=== PATIENT | male | born 1945 | race Caucasian/White ===

== ENCOUNTER → 2016-04-16 | Outpatient (CLI) | payer MEDICARE ==
[2016-04-16 11:21] LABS: Appearance,Urine Clear (Clear); Basophils # (A) 0.1 k/uL (0-0.2); Basophils % (A) 1 %; Bilirubin,Urine Negative (Negative); CH 31.4; Eosinophils # (A) 0.3 k/uL (0-0.7); Eosinophils % (A) 4 %; Glucose,Urine (UA) Negative (Negative); HCT 43.4 % (39.0-53.0); HDW 2.75; HGB 14.6 gm/dL (13.0-17.5); Ketones,Urine Negative (Negative); Leukocyte Esterase,Urine Trace (Negative); Luc % (Auto) 1; Lymphocytes % (A) 25 %; MCH 31.3 pg (25.0-35.0); MCHC 33.7 g/dL (31.0-37.0); MCV 92.8 fL (80.0-100.0); Mean Platelet Volume 6.7; Monocytes # (A) 0.4 k/uL (0-1.0); Monocytes % (A) 5 %; Mucus,Urine Rare /hpf; Neutrophils % (A) 64 %; Nitrite,Urine Negative (Negative); Particle Count 1796; Protein,Urine Negative (Negative); RBC 4.68 m/uL (4.30-5.90); RDW 13.3 % (11.5-15.5); Specific Gravity,Urine 1.017 (1.001-1.035); Squamous Epithelial Cell,Urine <1 /hpf (0-4); UA Billing (MACRO vs. MICRO) MICRO; Urobilinogen,Urine <2.0 mg/dL (<2.0); WBC 7.9 k/uL (3.8-10.6); WBC (Perox) 8.01; WBC,Urine 1 /hpf (0-5)
[2016-04-16 11:25] LABS: INR 1.1 (<1.1); Partial Thromboplastin Time 25.2 sec (22.0-30.0); Prothrombin Time 10.9 sec (9.0-12.0)
[2016-04-16 11:43] LABS: Anion Gap 14 mmol/L; Blood Urea Nitrogen 13 mg/dL (9-20); Calcium 9.3 mg/dL (8.4-10.2); Carbon Dioxide 26 mmol/L (22-30); Chloride 103 mmol/L (98-107); Glucose 116 mg/dL (74-99); Non-African American GFR(MDRD) >60 (>60 ml/min/1.73 sqM); Potassium 4.3 mmol/L (3.5-5.1); Sodium 143 mmol/L (137-145)
== END | disposition home or self-care (01) ==
LOC: LABPAT 10:32
PROVIDERS: ATTEND Internal Medicine
DX: Z01.812 Encounter for preprocedural laboratory examination (principal)
CPT/HCPCS: 80048; 81001; 85025; 85610; 85730

== ENCOUNTER 2016-05-06 05:51 | Inpatient (IN) | payer MEDICARE ==
[2016-04-26 08:33] VITALS: BMI 30.4
--- NOTE | 2016-05-05 14:58 | HP ---
DATE OF ADMISSION: 05/06/2016 Juancarlos Conrad is a 71-year-old patient seen with symptomatic left knee osteoarthritis. After having treatment options discussed, he elected to proceed with left total knee arthroplasty. Consent was obtained. Medical clearance was provided to Dr. Luis Layne, cardiac clearance was provided by Dr. Suarez. PAST MEDICAL HISTORY: Cardiovascular disease, lgt-[id number] diabetes, hypertension, benign prostatic hypertrophy. PAST SURGICAL HISTORY: Right total knee arthroplasty, lumbar spine surgery. DAILY MEDICATIONS: 1. Metformin. 2. Prilosec. 3. Flomax. 4. Lisinopril. ALLERGIES: PENICILLIN. SOCIAL HISTORY: Patient denies tobacco use. Physical evaluation of the left knee: Range of motion is -6/7 to 115 degrees, tenderness along the medial joint line. There is crepitus along the medial and patellofemoral compartments with range of motion. There is discomfort/pain with patellofemoral compression. Ligaments are stable. Hip rotation is without pain. Distal neurovascular exam is intact. Left knee radiographs reveal severe medial and moderate to severe patellofemoral compartment osteoarthritis. IMPRESSION: Left knee osteoarthritis. PLAN: Left total knee arthroplasty.
[~2016-05-06 05:51] MED LIST: ACETAMINOPHEN TAB 500 MG TAB PO ONE; CLINDAMYCIN 900 MG in DEXTROSE 5% IN WATER 50 ML IVPB ONE; DEXAMETHASONE SOD PHOSPHATE 10 MG/ML 1 ML VIAL IV ONE; LACTATED RINGERS 1,000 ML IV SCH; LIDOCAINE 1% 20 ML VIAL (10MG/ML) FOR IV START INTRADERMA PRN; MELOXICAM 7.5 MG TAB PO ONE; MIDAZOLAM 2 MG/2 ML VIAL IV PRN; ONDANSETRON 4 MG/2 ML VIAL IVP ONE; SCOPOLAMINE 1.5MG/72HR PATCH TRANSDERM ONE; TRANEXAMIC ACID 1,000 MG in SODIUM CHLORIDE 0.9% 100 ML IVPB ONE
[2016-05-06 06:57] LABS: Glucose,Whole Blood 133 mg/dL (75-99)
[2016-05-06] MEDS ORDERED: ROPIVACAINE 246.25 MG, EPINEPHrine 0.5 MG, KETOROLAC 30 MG, cloNIDine HCL/PF 80 MCG, WA... MISCELLANE ONE ×5 (07:31)
[2016-05-06] MEDS ORDERED: MIDAZOLAM 2 MG/2 ML VIAL ONE (07:35)
[2016-05-06] MEDS ORDERED: LIDOCAINE 1% INJ 10MG/ML (20 ML MDV) ONE (07:35)
[2016-05-06] MEDS ORDERED: PHENYLEPHRINE-0.9% NACL SYG 1 MG/10 ML SYRINGE ONE (07:35)
[2016-05-06] MEDS ORDERED: SODIUM CHLORIDE 0.9% 100 ML BAG ONE (07:35)
[2016-05-06] MEDS ORDERED: GLYCOPYRROLATE 0.2 MG/ML 2 ML VIAL ONE (07:35)
[2016-05-06] MEDS ORDERED: ROCURONIUM BROMIDE 10 MG/ML 10 ML VIAL IV ONE (07:35)
[2016-05-06] MEDS ORDERED: ePHEDrine 50 MG/ML 1 ML AMP ONE (07:35)
[2016-05-06] MEDS ORDERED: SUCCINYLCHOLINE CHLORIDE 100 MG/5 ML SYR IV ONE (07:35)
[2016-05-06] MEDS ORDERED: PROPOFOL 10 MG/ML 20 ML VIAL IV ONE (07:35)
[2016-05-06] MEDS ORDERED: NEOSTIGMINE 1 MG/ML 10 ML VIAL ONE (07:35)
[2016-05-06] MEDS ORDERED: fentaNYL (PF) 50 MCG/ML 2 ML AMP ONE (07:35)
[2016-05-06] MEDS ORDERED: TRANEXAMIC ACID 1,000 MG/10 ML VIAL ONE (07:35)
[2016-05-06] MEDS ORDERED: CLINDAMYCIN 1,800 MG in SODIUM CHLORIDE 0.9% IRRIGATIO 3,000 ML IRRIGATION ONE (08:07)
[2016-05-06] MEDS ORDERED: LACTATED RINGERS 1,000 ML IV ONE (08:17)
[2016-05-06] MEDS ORDERED: HYDROcodone/APAP 7.5-325MG 1 EACH TAB PO PRN ×2 (09:19)
[2016-05-06] MEDS ORDERED: NALOXONE 0.4 MG/ML 1 ML VIAL IV PRN (09:19)
[2016-05-06] MEDS ORDERED: HYDROmorphone 1 MG/ML 1 ML SYRINGE IVP PRN ×3 (09:19)
[2016-05-06] MEDS ORDERED: ONDANSETRON 4 MG/2 ML VIAL IVP PRN (09:19)
[2016-05-06] MEDS ORDERED: hydrOXYzine PAMOATE 25 MG CAP PO PRN (09:19)
--- NOTE | 2016-05-06 09:19 | P.OP ---
Date of Procedure: 05/06/16 Preoperative Diagnosis: Left knee osteoarthritis Postoperative Diagnosis: Left knee osteoarthritis Procedure(s) Performed: Left total knee arthroplasty Implants: 1. Jason persona cemented cruciate retaining left size 7 femur 2. Jason persona cemented left size E tibia 3. Jason persona 10 mm medial congruent polyethylene tibial insert 4. Jason persona 35 mm all polyethylene cemented patella Anesthesia: GETA, regional (Adductor canal block), local Surgeon: Huseyin Aguilar Whip Sawyer #1: Khoa Perales Estimated Blood Loss (ml): 100 Pathology: other (Bone) Condition: stable Disposition: PACU Indications for Procedure: 71-year-old patient seen with symptomatic left knee osteoarthritis. After having treatment options discussed, he elected to proceed with left total knee arthroplasty. Operative Findings: see description of procedure Description of Procedure: Patient was taken to the operative suite after having an adductor canal block performed by the department of anesthesia. Patient underwent a general anesthetic by the department of anesthesia. Patient was given preoperative IV intake antibiotics and TXA. A well-padded tourniquet was placed about the left lower extremity. The lower extremity was then prepped and draped in the normal sterile orthopedic fashion. A standard anterior incision was made sharply through skin. Dissection was taken down through the subcutaneous soft tissues down to the extensor mechanism. A medial arthrotomy was performed, patella was everted and knee was flexed. There was advanced osteoarthritis noted. A proximal tibial cutting guide was positioned. Proximal tibial cut was made. A distal intramedullary femoral cutting guide was positioned, distal femoral cut made. We placed the appropriate sizing guide and selected the appropriate size. A distal 4-in-1 femoral cutting block was positioned, distal femoral cuts were made. We now placed a trial femoral component into position, along with an appropriate size tibial tray and insert. We now took the knee through range of motion and had full extension good flexion and good overall soft tissue balance noted. The patella was everted and a flush cut made with patellar quad tendon. We templated the patella, appropriate drill holes were made. An appropriate trial patella was positioned, knee was taken through full range of motion with the patella tracking very nicely. The trial patella was removed. Drill holes were made through the femoral component. All trial components were removed after marking off the appropriate rotation of the tibia. Retractors were now positioned along the proximal tibia. An appropriate keel punch was made with the appropriate size tibial guide. At this point appropriate size implants were chosen and opened. The tourniquet was insufflated to 350. The joint was irrigated copiously with pulse lavage mechanical irrigation. The deep soft tissues were infiltrated local analgesic. We mixed antibiotic methylmethacrylate. Once the methyl methacrylate was ready, the tibial component was cemented into place removing any excess methylmethacrylate. The femoral component was cemented into place removing the removing any excess methylmethacrylate. We then inserted the appropriate size polyethylene tibial insert. We made sure that it was locked into position. We took the knee into full extension, and then back in a flexion making sure we had removed any excess methylmethacrylate. The patellar component was then cemented down and secured with clamp. Excess methylmethacrylate removed. We kept the knee in full extension, patellar clamp in position until methylmethacrylate had hardened. Once it had hardened the patellar clamp was removed. The knee was taken through full range of motion. The patella tracked nicely. There was good soft tissue balancing. The tourniquet was now released. Additional hemostasis was achieved via electrocautery. A second gram of TXA was given. The superficial soft tissues were infiltrated local analgesic. The extensor mechanism was repaired with Vicryl. We checked the repair with range of motion and it was stable. The subcutaneous soft tissues were repaired with Vicryl in layers. The skin was approximated with pernio/ Dermabond. Sterile dressings were applied followed by loose web roll and Deangelo bandage. The patient was transferred to a bed, and taken to recovery in stable and satisfactory condition. Khoa PRINCE assisted with the procedure.
[2016-05-06] MEDS ORDERED: ROPIVACAINE 1,100 MG, SODIUM CHLORIDE 0.9% 330 ML MISCELLANE PRN ×2 (09:22)
[2016-05-06] MEDS: HYDROmorphone 1 MG/ML 1 ML SYRINGE IVP PRN ×2 (09:51→10:03)
[2016-05-06 10:03] LABS: Glucose,Whole Blood 175 mg/dL (75-99)
--- NOTE | 2016-05-06 10:12 | XR ---
EXAMINATION TYPE: XR knee limited LT DATE OF EXAM: 05/06/2016 10:03 AM COMPARISON: NONE HISTORY: Post op FINDINGS: There is a prosthetic knee in near anatomic alignment. There is soft tissue edema and emphysema. IMPRESSION: 1. Postoperative change. Appears in near-anatomic alignment
[2016-05-06 11:45] LABS: Glucose,Whole Blood 177 mg/dL (75-99)
[2016-05-06] MEDS: traMADol 50 MG TAB PO SCH ×3 (13:10→20:45)
[2016-05-06] MEDS ORDERED: LORazepam 1 MG TAB PO PRN (13:23)
[2016-05-06] MEDS: CLINDAMYCIN 900 MG in DEXTROSE 5% IN WATER 50 ML IVPB SCH ×4 (15:01→20:40)
--- NOTE | 2016-05-06 15:50 | P.ONQ ---
Anesthesiology Proc Note - PNB - Peripheral Nerve Block Performed Left Adductor Canal Infusion Time Out Performed: Yes Procedure Start Time: :16 Procedure Stop Time: :25 Indication: Acute Post-Operative Pain, Requested by physician Sedation Type: Sedate with meaningful contact maintained Preparation: Sterile Dressing Position: Supine Needle Types: On-Q Needle Size: 50mm (2") Needle Gauge: 21 Technique: Ultrasound Injectate: 0.5% Ropivacaine (see comment for volume) (25cc) Blood Aspirated: No Pain Paresthesia on Injection Noted: No Resistance on Injection: Normal Events: Uneventful and Well Tolerated
[2016-05-06 17:26] LABS: Glucose,Whole Blood 200 mg/dL (75-99)
[2016-05-06] MEDS: metFORMIN 500 MG TAB PO SCH (18:28)
[2016-05-06] MEDS: LACTATED RINGERS 1,000 ML IV SCH ×2 (19:08→20:49)
--- NOTE | 2016-05-06 19:50 | CONS ---
DATE OF CONSULTATION: This is a 71-year-old white male who has a long-standing history of degenerative arthritis of the knee joints. He had a left total knee arthroplasty by Dr. Aguilar today and apparently patient tolerated the surgery well. I have been asked to see the patient for postoperative medical management. Patient is known to have hypertensive cardiovascular disease, diabetes mellitus, hyperlipidemia and benign prostatic hypertrophy. Patient has had recent lumbar spinal surgery and apparently he tolerated the surgery well and he is doing well with regards to the lower back. Patient also had a right total knee arthroplasty in the past. He is known to have diabetes mellitus and hypertensive cardiovascular disease. His current medications include: 1. Metformin. 2. Prilosec. 3. Flomax. 4. Lisinopril. 5. Cardizem. He does not smoke and he does not drink alcohol. He has NO KNOWN DRUG ALLERGIES. FAMILY HISTORY: History of heart disease and diabetes. REVIEW OF SYSTEMS: Patient denies any headache. Appetite has been good, bowels regular. He has no chest pain. He has no cough. He has no abdominal pain. He has no polyuria or dysuria. He has no neurological symptoms. Physical examination reveals a 71-year-old white male, well nourished and well developed. He is alert and oriented. He is in no acute distress. Pain seems to be under control. There is no jaundice. There is no generalized lymphadenopathy. There are no petechiae or bruises. Pulse 72 per minute, regular. Blood pressure 144/70. Examination of the ENT is negative. Neck is supple. There is no jugular venous distention. There is no goiter. There is no carotid bruit. Heart is in sinus rhythm. Lungs are clear to auscultation and percussion. Abdomen is soft and nontender. There is no mass palpable. Examination of the lower extremities shows no pitting edema. He is status post left total knee arthroplasty. IMPRESSION: 1. Degenerative arthritis of the left knee, status post left total knee arthroplasty. 2. Hypertensive cardiovascular disease. 3. Diabetes mellitus. 4. Hyperlipidemia. 5. History of low back pain, status post lumbar laminectomy and spinal fusion. 6. Past history of total right knee arthroplasty. PLAN: Patient will be placed back on his previous home medications. Will monitor his hemoglobin because he has a history of anemia following the previous surgery, and he has been on iron tablets. He has already been placed back on iron tablets now. His diabetes will be controlled with NovoLog sliding scale. Patient's vital signs are stable. There are no acute cardiorespiratory problems. Prognosis guarded. The prognosis and therapeutic plans were discussed in detail with the patient. Thank you for asking me to see this patient in consultation.
[2016-05-06] MEDS: INSULIN LISPRO (humaLOG) 300 UNIT/3 ML VIAL SQ SCH ×2 (19:57→20:52)
[2016-05-06] MEDS: ENOXAPARIN 30 MG/0.3 ML SYRINGE SQ SCH (20:40)
[2016-05-06] MEDS: SOTALOL 80 MG TAB PO SCH (20:41)
[2016-05-06] MEDS: LISINOPRIL 10 MG TAB PO SCH (20:41)
[2016-05-06] MEDS: CYCLOBENZAPRINE 10 MG TAB PO SCH (20:42)
[2016-05-06] MEDS: SENNOSIDES-DOCUSATE SODIUM 1 EACH TAB PO SCH (20:45)
[2016-05-06 20:52] LABS: Glucose,Whole Blood 155 mg/dL (75-99)
[2016-05-07] MEDS: LACTATED RINGERS 1,000 ML IV SCH ×2 (02:36→16:58)
[2016-05-07] MEDS ORDERED: PANTOPRAZOLE 40 MG TABLET PO SCH (07:30)
[2016-05-07 08:03] LABS: Basophils % (A) 0 %; CH 31.9; CHCM 34.9; Eosinophils % (A) 0 %; HCT 32.3 % (39.0-53.0); HDW 2.73; Luc # (Auto) 0.07; Luc % (Auto) 1; Lymphocytes # (A) 1.1 k/uL (1.0-4.8); Lymphocytes % (A) 10 %; MCHC 33.8 g/dL (31.0-37.0); Monocytes # (A) 0.8 k/uL (0-1.0); Monocytes % (A) 8 %; Neutrophils % (A) 82 %; RBC 3.52 m/uL (4.30-5.90); RDW 13.5 % (11.5-15.5); WBC (Perox) 11.81
[2016-05-07 08:06] LABS: HGB 10.9 gm/dL (13.0-17.5)
[2016-05-07 08:10] LABS: Glucose,Whole Blood 124 mg/dL (75-99)
[2016-05-07] MEDS: INSULIN LISPRO (humaLOG) 300 UNIT/3 ML VIAL SQ SCH ×4 (08:24→23:15)
[2016-05-07] MEDS: metFORMIN 500 MG TAB PO SCH ×2 (08:28→20:12)
[2016-05-07] MEDS: DILTIAZEM CD 120 MG CAP.ER.24H PO SCH (08:30)
[2016-05-07] MEDS: ENOXAPARIN 30 MG/0.3 ML SYRINGE SQ SCH ×2 (08:30→20:14)
[2016-05-07] MEDS: FAMOTIDINE 20 MG TAB PO SCH (08:31)
[2016-05-07] MEDS: MELOXICAM 7.5 MG TAB PO SCH (08:31)
[2016-05-07] MEDS: SOTALOL 80 MG TAB PO SCH ×2 (08:32→20:14)
[2016-05-07] MEDS: TAMSULOSIN 0.4 MG CAP.ER.24H PO SCH (08:33)
[2016-05-07] MEDS: traMADol 50 MG TAB PO SCH ×5 (08:33→22:58)
--- NOTE | 2016-05-07 10:37 | P.PN ---
Progress Note - Text 05/07 615am 71-year-old male status post total knee replacement with Dr. Aguilar, patient seen this morning to evaluate pain control. VAS of 0, and the solution running at 8 mL an hour. No motor deficits noted
[2016-05-07 10:51] LABS: Hemoglobin A1C 5.5 % (4.2-6.1)
[2016-05-07 12:02] LABS: Glucose,Whole Blood 134 mg/dL (75-99)
--- NOTE | 2016-05-07 12:24 | P.PN ---
Subjective Principal diagnosis: Status post left total knee arthroplasty Patient is seen today resting his hospital chair, his is present at bedside. Patient has ambulated minimally with therapy today. Patient did become a little unsteady when ambulating back from the bathroom. He notes some increasing pain in the left knee when ambulating. He denies any chest pain, lightheadedness, shortness of breath. Objective - Vital Signs Vital signs: Vital Signs Temp 97.0 F L 05/07/16 07:00 Pulse 83 05/07/16 07:00 Resp 16 05/07/16 07:00 BP 187/89 05/07/16 07:00 Pulse Ox 94 L 05/07/16 07:00 Intake & Output 05/06/16 05/07/16 05/07/16 18:59 06:59 18:59 Intake Total 1987 200 Output Total 350 1200 150 Balance 1637 -1200 50 Weight 90.718 kg Intake: IV 1807 Lactated Ringers 1,000 ml 400 @ 100 mls/hr IV .Q10H [facility] Rx#:[id number] Oral 180 200 Output: Urine 250 1200 150 Uretheral (Raines) 1200 Estimated Blood Loss 100 Other: Voiding Method Indwelling Catheter Indwelling Catheter - Exam Left lower extremity: Incision is clean, dry, and intact. Minimal ecchymosis present on the medial and lateral aspects of the incision. Calf is soft, no tenderness with palpation. Plantar flexion, dorsiflexion, EHL, FHL are intact. Sensory exam light touch throughout the extremity is intact. Dorsal pedis pulses 2+. - Labs CBC & Chem 7: 05/07/16 07:32 Labs: Abnormal Lab Results - Last 24 Hours (Table) 05/06/16 05/06/16 05/07/16 Range/Units 17:11 20:51 07:32 WBC 11.0 H (3.8-10.6) k/uL RBC 3.52 L (4.30-5.90) m/uL Hgb 10.9 L D (13.0-17.5) gm/dL Hct 32.3 L (39.0-53.0) % Neutrophils # 9.0 H (1.3-7.7) k/uL POC Glucose (mg/dL) 200 H 155 H (75-99) mg/dL 01/24/17 01/24/17 Range/Units 08:04 11:58 WBC (3.8-10.6) k/uL RBC (4.30-5.90) m/uL Hgb (13.0-17.5) gm/dL Hct (39.0-53.0) % Neutrophils # (1.3-7.7) k/uL POC Glucose (mg/dL) 124 H 134 H (75-99) mg/dL Assessment and Plan Plan: Assessment: 1. Postop day #1 status post left total knee arthroplasty Plan: 1. Pain control, continue use of oral medication 2. Continue therapy/CPM 3. Daily dressing changes/ice and elevate 4. Encourage incentive spirometer 5. GI and DVT prophylaxis, continue Pepcid and Lovenox 6. Medical recommendations 7. Discharge planning: Patient will likely be discharged home Time with Patient: Less than 30
[2016-05-07] MEDS: MULTIVITAMINS, THERA 1 EACH TAB PO SCH (13:00)
[2016-05-07] MEDS: FERROUS SULFATE 325 MG TAB PO SCH (13:00)
[2016-05-07 17:20] LABS: Glucose,Whole Blood 141 mg/dL (75-99)
--- NOTE | 2016-05-07 18:06 | PN ---
DATE OF SERVICE: 05/07/2016 This 71-year-old white male who has long-standing history of degenerative arthritis of the left knee and he had a left total knee arthroplasty on 05/06/2016 and he was seen by me in consultation for postoperative medical management. Patient has had a right total knee arthroplasty in the past and he has had no problems postoperatively at that time. This time the patient's vital signs are stable and his pain is adequately controlled. His diabetes is being controlled with NovoLog sliding scale. His blood pressure also under control and his hemoglobin is 10.9 and he has been started on ferrous sulfate. Overall, patient is recovering without any significant complications. He is tolerating the physical therapy and increased activities well. Heart is in sinus rhythm. Lungs are clear. There are no acute cardiorespiratory problems. Will continue current medications.
[2016-05-07] MEDS: CYCLOBENZAPRINE 10 MG TAB PO SCH (20:13)
[2016-05-07] MEDS: LISINOPRIL 10 MG TAB PO SCH (20:14)
[2016-05-07] MEDS: SENNOSIDES-DOCUSATE SODIUM 1 EACH TAB PO SCH (20:14)
[2016-05-07 20:30] LABS: Glucose,Whole Blood 165 mg/dL (75-99)
[2016-05-08] MEDS: LACTATED RINGERS 1,000 ML IV SCH ×3 (02:44→21:30)
[2016-05-08 07:12] LABS: Glucose,Whole Blood 140 mg/dL (75-99)
[2016-05-08] MEDS: INSULIN LISPRO (humaLOG) 300 UNIT/3 ML VIAL SQ SCH ×4 (07:47→21:21)
[2016-05-08] MEDS: PRILOSEC 20 MG PO SCH (07:47)
[2016-05-08] MEDS: ENOXAPARIN 30 MG/0.3 ML SYRINGE SQ SCH ×2 (07:47→21:28)
[2016-05-08] MEDS: SOTALOL 80 MG TAB PO SCH ×2 (07:48→21:27)
[2016-05-08] MEDS: MULTIVITAMINS, THERA 1 EACH TAB PO SCH (07:49)
[2016-05-08] MEDS: metFORMIN 500 MG TAB PO SCH ×2 (07:49→17:47)
[2016-05-08] MEDS: MELOXICAM 7.5 MG TAB PO SCH (07:49)
[2016-05-08] MEDS: DILTIAZEM CD 120 MG CAP.ER.24H PO SCH (07:50)
[2016-05-08] MEDS: FAMOTIDINE 20 MG TAB PO SCH (07:50)
[2016-05-08] MEDS: TAMSULOSIN 0.4 MG CAP.ER.24H PO SCH (07:50)
--- NOTE | 2016-05-08 09:08 | P.PN ---
Progress Note - Text The patient is status post left adductor canal catheter placement. The catheter was placed for postoperative pain control, status post total left arthroplasty. Postoperative day #2. Ropivacaine 0.2% is infusing at 12 mLs per hour. The patient has no complaints of left lower extremity numbness or weakness. Patient's VAS score is[2-3-10, anterior medial at the knee. Assessment: Patient's adductor canal catheter is in place and working appropriately. Plan: continue infusion and adjust it as needed.
[2016-05-08] MEDS: traMADol 50 MG TAB PO SCH ×4 (10:24→21:26)
--- NOTE | 2016-05-08 11:35 | US ---
EXAMINATION TYPE: US venous doppler duplex LE LT DATE OF EXAM: 05/08/2016 11:18 AM COMPARISON: NONE CLINICAL HISTORY: swelling and pain. Pain s/p left total knee SIDE PERFORMED: Left VESSELS IMAGED: External Iliac Vein (EIV) Common Femoral Vein Deep Femoral Vein Greater Saphenous Vein * Femoral Vein Popliteal Vein Small Saphenous Vein * Proximal Calf Veins (* superficial vessels) Left Leg: Negative for DVT/ Probable Asencio's Cyst left pop fossa= 5.7 x 2.2 x 2..4 cm
[2016-05-08 11:48] LABS: Glucose,Whole Blood 149 mg/dL (75-99)
--- NOTE | 2016-05-08 12:43 | P.PN ---
Subjective Principal diagnosis: Status post left total knee arthroplasty Patient is seen today resting his hospital chair, his is present at bedside. Patient states that he still has some difficulty with ambulation, he' s having difficulty getting speed on room. He also notes some increasing pain in the knee. He denies any chest pain, lightheadedness, shortness of breath. Objective - Vital Signs Vital signs: Vital Signs Temp 98.2 F 05/08/16 07:00 Pulse 85 05/08/16 07:00 Resp 16 05/08/16 07:00 BP 183/87 05/08/16 07:00 Pulse Ox 94 L 05/08/16 07:00 Intake & Output 05/07/16 05/08/16 05/08/16 18:59 06:59 18:59 Intake Total 200 250 Output Total 675 300 Balance -475 -50 Intake: Oral 200 250 Output: Urine 675 300 Other: Voiding Method Urinal # Voids 150 4 - Exam Left lower extremity: Incision is clean, dry, and intact. Minimal ecchymosis present on the medial and lateral aspects of the incision. Calf is soft, no tenderness with palpation. Plantar flexion, dorsiflexion, EHL, FHL are intact. Sensory exam light touch throughout the extremity is intact. Dorsal pedis pulses 2+. - Labs CBC & Chem 7: 05/07/16 07:32 Labs: Abnormal Lab Results - Last 24 Hours (Table) 05/07/16 05/07/16 05/08/16 Range/Units 16:47 20:28 07:06 POC Glucose (mg/dL) 141 H 165 H 140 H (75-99) mg/dL 05/08/16 Range/Units 11:45 POC Glucose (mg/dL) 149 H (75-99) mg/dL Assessment and Plan Plan: Assessment: 1. Postop day #2 status post left total knee arthroplasty Plan: 1. Pain control, continue use of oral medication 2. Continue therapy/CPM 3. Daily dressing changes/ice and elevate 4. Encourage incentive spirometer 5. GI and DVT prophylaxis, continue Pepcid and Lovenox 6. Medical recommendations 7. Discharge planning: Considering discharge to rehab pending patient's activity level tomorrow, hopefully will go discharged home Time with Patient: Less than 30
--- NOTE | 2016-05-08 12:46 | P.DS ---
Providers Date of admission: 05/06/16 05:51 Expected date of discharge: 05/09/16 Attending physician: Huseyin Aguilar Consults: 05/06/16 09:19 Consult Physician Routine Consulting Provider: Luis Layne Reason/Comments: Medical management Do you want consulting provider notified?: Yes Primary care physician: Luis Layne [place] Hospital Course: Date of admission: 05/06/2016 Date of discharge: 05/09/2016 Admission diagnosis: Status post post left total knee arthroplasty Discharge diagnosis: Same Attending physician: Dr. Fierro Surgical procedures: Left total knee arthroplasty Brief history: Patient is a 71-year-old male with a history of progressive primary left knee osteoarthritis. At this point patient has failed conservative treatment measures and has opted to proceed with a elective left total knee arthroplasty. Hospital course: Details of patient's surgery can be found in operative report. Patient tolerated the procedure well and was subsequently transported to orthopedic floor. Patient's orthopeidc and medical care was provided daily. Patient had daily laboratory tests performed for evaluation of overall blood counts. Patient had daily physical therapy to include strengthening range of motion as well as education with walker ambulation. Patient had daily CPM usage as part of their physical therapy program. Patient was treated with Lovenox and Coumadin for their postoperative DVT prophylaxis during their inpatient stay. Patient was noted to have a relatively uneventful postoperative course. Patient reported satisfactory pain control with oral pain medications by postoperative day 0. Patient showed satisfactory progress with physical therapy. Patient moved steadily through the program and had no difficulty meeting the goals by postoperative day 3. Given patient's otherwise satisfactory course and having met physical therapy goals, plan is to discharge patient home on postoperative day 3. Discharge condition/disposition: Patient will be discharged home in stable condition. Discharge medications: Instructions are given on resumption of patient's normal daily medications per primary care recommendation, in addition patient will be prescribed [place] 7.5 mg/325 mg, tramadol 50 mg, Colace 100 mg, aspirin 325 mg. Discharge instructions: 1. Wound care and infection precautions, keep incision dry and covered while showering, no lotions, creams, moisturizers. No soaking, tubs, pools, hottubs. Do not scrub over the incision. 2. Weight-bear as tolerated with walker / cane until follow-up. 3. Ice and elevate when necessary. Do not exceed 20 minutes per hour with ice pack. 4. Utilize compression sleeve until seen at first follow up appointment. 5. Visiting nursing care. 6. Home physical therapy including home CPM. 7. Pain meds and anticoagulants per prescription. 8. Pain medication has potential to cause constipation. Increase oral fluid and fiber intake. Contact primary care provider if you have not had a bowel movement within 48 hours after discharge 9. No anti-inflammatory medication until discussed at first post operative visit, this including Motrin, Aleve, Mobic, Diclofenac. 10. Follow up in office at 2 weeks postop with Wily Perales PA-C 11. Follow up with your primary care doctor 7-10 days after discharge. 12. Contact [facility] with any questions, . Procedures: Left total knee arthroplasty Patient Condition at Discharge: Good Plan - Discharge Summary New Discharge Prescriptions: Aspirin 325 mg PO BID #60 tab Docusate [Colace] 100 mg PO DAILY #20 capsule HYDROcodone/APAP 7.5-325MG [[place] 7.5] 1 - 2 each PO Q6HR PRN #40 tab PRN Reason: Pain traMADol HCl [Ultram] 50 mg PO Q6H PRN #40 tab PRN Reason: Pain Discharge Medication List Acetaminophen Tab [Tylenol Tab] 1,000 mg PO TID 01/13/15 [History] Omeprazole [PriLOSEC] 20 mg PO [id number] 01/13/15 [History] metFORMIN HCL [Glucophage] 500 mg PO BID 01/13/15 [History] Cartia Er 120 mg PO DAILY 04/26/16 [History] Cyclobenzaprine [Flexeril] 10 mg PO HS 04/26/16 [History] Ferrous Sulfate [Feosol] 325 mg PO DAILY 04/26/16 [History] LORazepam [Ativan] 1 mg PO DIRECTED PRN 04/26/16 [History] Lisinopril [Zestril] 10 mg PO HS 04/26/16 [History] Sotalol [Betapace] 40 mg PO BID 04/26/16 [History] Tamsulosin [Flomax] 0.4 mg PO DAILY 04/26/16 [History] Aspirin 325 mg PO BID #60 tab 05/09/16 [Rx] Docusate [Colace] 100 mg PO DAILY #20 capsule 01/26/17 [Rx] HYDROcodone/APAP 7.5-325MG [[place] 7.5] 1 - 2 each PO Q6HR PRN #40 tab 05/09/16 [ Rx] traMADol HCl [Ultram] 50 mg PO Q6H PRN #40 tab 05/09/16 [Rx] Follow up Appointment(s)/Referral(s): Khoa Perales, PAC [PHYSICIAN [employer]] - 05/22/16 2:10 pm Activity/Diet/Wound Care/Special Instructions: Home Care - [facility] - [phone] Walker - has at home [facility] - [facility] - [phone] Orthopedic Discharge Instructions: 1. Wound care and infection precautions, keep incision dry and covered while showering, no lotions, creams, moisturizers. No soaking, pools, hot tubs. Do not scrub over incision. 2. Weight-bear as tolerated with walker / cane until follow-up. 3. Ice and elevate when necessary. Do not exceed 20 minutes per hour with ice pack. 4. Utilize compression sleeve until seen at first follow up appointment. 5. Visiting nursing care. 6. Home physical therapy including home CPM. 7. Pain meds and anticoagulants per prescription. 8. Pain medication has potential to cause constipation. Increase oral fluid and fiber intake. Contact primary care provider if you have not had a bowel movement within 48 hours after discharge. 9. No anti-inflammatory medication until discussed at first post operative visit, this including Motrin, Aleve, Mobic, Diclofenac. 10. Follow up in office at 2 weeks postop with Wily Perales PA-C 11. Follow up with your primary care doctor 7-10 days after discharge. 12. Contact [facility] with any questions, . Discharge Disposition: HOME WITH HOME HEALTH SERVICES
[2016-05-08 16:54] LABS: Glucose,Whole Blood 121 mg/dL (75-99)
--- NOTE | 2016-05-08 17:46 | PN ---
DATE OF SERVICE: 05/08/2016 This is a 71-year-old white male who has a long-standing history of degenerative arthritis of the knees. He already had right total knee arthroplasty a few years ago. Patient had a left total knee arthroplasty on 05/06/2016. I was asked to see the patient in consultation for postoperative medical management. Patient is known to have diabetes mellitus and hypertensive cardiovascular disease. Patient has been placed back on his previous medications. He is also on NovoLog sliding scale for control of his diabetes. Patient has been recovering well from his surgery. His vital signs are stable. His hemoglobin is 10.9. Patient is feeling better. He denies any chest pain or shortness of breath. His vital signs are stable. Apparently patient is going to be discharged by Dr. Aguilar tomorrow. Patient was advised to continue his previous home medications when he is discharged. He denies any chest pain or shortness of breath. He has no acute cardiorespiratory problems.
[2016-05-08] MEDS: FERROUS SULFATE 325 MG TAB PO SCH (17:47)
[2016-05-08 20:37] LABS: Glucose,Whole Blood 136 mg/dL (75-99)
[2016-05-08] MEDS: SENNOSIDES-DOCUSATE SODIUM 1 EACH TAB PO SCH (21:27)
[2016-05-08] MEDS: CYCLOBENZAPRINE 10 MG TAB PO SCH (21:28)
[2016-05-08] MEDS: LISINOPRIL 10 MG TAB PO SCH (21:28)
[2016-05-09] MEDS: PRILOSEC 20 MG PO SCH (06:12)
[2016-05-09 06:19] VITALS: TEMP 97.2
[2016-05-09 07:48] LABS: Glucose,Whole Blood 143 mg/dL (75-99)
[2016-05-09] MEDS: TAMSULOSIN 0.4 MG CAP.ER.24H PO SCH (08:07)
[2016-05-09] MEDS: MULTIVITAMINS, THERA 1 EACH TAB PO SCH (08:07)
[2016-05-09] MEDS: MELOXICAM 7.5 MG TAB PO SCH (08:07)
[2016-05-09] MEDS: FERROUS SULFATE 325 MG TAB PO SCH (08:07)
[2016-05-09] MEDS: traMADol 50 MG TAB PO SCH ×2 (08:08→13:07)
[2016-05-09] MEDS: INSULIN LISPRO (humaLOG) 300 UNIT/3 ML VIAL SQ SCH ×2 (08:08→13:08)
[2016-05-09] MEDS: LACTATED RINGERS 1,000 ML IV SCH (08:09)
[2016-05-09 08:10] LABS: Basophils % (A) 1 %; CH 31.9; CHCM 34.7; Eosinophils # (A) 0.2 k/uL (0-0.7); Eosinophils % (A) 3 %; HCT 30.2 % (39.0-53.0); HDW 2.85; HGB 10.3 gm/dL (13.0-17.5); Luc # (Auto) 0.07; Luc % (Auto) 1; Lymphocytes # (A) 1.4 k/uL (1.0-4.8); Lymphocytes % (A) 20 %; MCH 31.6 pg (25.0-35.0); MCHC 34.1 g/dL (31.0-37.0); MCV 92.6 fL (80.0-100.0); Mean Platelet Volume 8.7; Monocytes # (A) 0.7 k/uL (0-1.0); Monocytes % (A) 10 %; Neutrophils # (A) 4.8 k/uL (1.3-7.7); Neutrophils % (A) 67 %; RBC 3.27 m/uL (4.30-5.90); RDW 13.6 % (11.5-15.5); WBC 7.3 k/uL (3.8-10.6)
[2016-05-09] MEDS: ENOXAPARIN 30 MG/0.3 ML SYRINGE SQ SCH (08:10)
[2016-05-09] MEDS: metFORMIN 500 MG TAB PO SCH (08:10)
[2016-05-09] MEDS: DILTIAZEM CD 120 MG CAP.ER.24H PO SCH (08:10)
[2016-05-09] MEDS: FAMOTIDINE 20 MG TAB PO SCH (08:11)
[2016-05-09] MEDS: SOTALOL 80 MG TAB PO SCH (08:11)
[2016-05-09 08:14] VITALS: PULSE 92; RESP 18
[2016-05-09 08:17] VITALS: BP 188/91
--- NOTE | 2016-05-09 08:59 | P.PN ---
Subjective Principal diagnosis: Status post left total knee arthroplasty Patient is seen today resting his hospital chair, his is present at bedside. Patients ambulation has improved slightly, pain has also improved. He denies any chest pain, lightheadedness, shortness of breath. Objective - Vital Signs Vital signs: Vital Signs Temp 97.2 F L 05/09/16 07:00 Pulse 92 05/09/16 07:00 Resp 18 05/09/16 07:00 BP 188/91 05/09/16 07:00 Pulse Ox 95 05/09/16 07:00 Intake & Output 05/08/16 05/09/16 05/09/16 18:59 06:59 18:59 Intake Total 480 780 Output Total 850 400 Balance -370 780 -400 Weight 90.718 kg Intake: IV 300 Lactated Ringers 1,000 ml 300 @ 100 mls/hr IV .Q10H TONY Rx#:[id number] Oral 480 480 Output: Urine 850 400 Other: Voiding Method Urinal Urinal # Voids 2 1 - Exam Left lower extremity: Incision is clean, dry, and intact. Minimal ecchymosis present on the medial and lateral aspects of the incision. Calf is soft, no tenderness with palpation. Plantar flexion, dorsiflexion, EHL, FHL are intact. Sensory exam light touch throughout the extremity is intact. Dorsal pedis pulses 2+. - Labs CBC & Chem 7: 05/09/16 07:41 Labs: Abnormal Lab Results - Last 24 Hours (Table) 05/08/16 05/08/16 05/08/16 Range/Units 11:45 16:49 20:34 RBC (4.30-5.90) m/uL Hgb (13.0-17.5) gm/dL Hct (39.0-53.0) % POC Glucose (mg/dL) 149 H 121 H 136 H (75-99) mg/dL 05/09/16 05/09/16 Range/Units 07:14 07:41 RBC 3.27 L (4.30-5.90) m/uL Hgb 10.3 L (13.0-17.5) gm/dL Hct 30.2 L (39.0-53.0) % POC Glucose (mg/dL) 143 H (75-99) mg/dL Assessment and Plan Plan: Assessment: 1. Postop day #3 status post left total knee arthroplasty Plan: 1. Pain control, will be discharged on oral medication 2. Continue therapy/CPM 3. Daily dressing changes/ice and elevate 4. Encourage incentive spirometer 5. GI and DVT prophylaxis, continue Pepcid and Lovenox 6. Medical recommendations 7. Discharge planning: Patient will be discharged home today Time with Patient: Less than 30
[2016-05-09 12:16] LABS: Glucose,Whole Blood 121 mg/dL (75-99)
== END 2016-05-09 14:20 | disposition home health service (06) | DRG 470 ==
LOC: 2ORMAIN 05:51 → 3SUR 09:18
PROVIDERS: ADMIT Orthopaedic Surgery; ATTEND Orthopaedic Surgery
PROC: 0SRD0J9 Replacement of Left Knee Joint with Synthetic Substitute, Cemented, Open Approach (ICD-10-PCS; principal; 2016-05-06 07:30)
DX: M17.0 Bilateral primary osteoarthritis of knee (principal); I11.9 Hypertensive heart disease without heart failure; E11.9 Type 2 diabetes mellitus without complications; E78.5 Hyperlipidemia, unspecified; I25.10 Atherosclerotic heart disease of native coronary artery without angina pectoris; N40.0 Benign prostatic hyperplasia without lower urinary tract symptoms; Z88.0 Allergy status to penicillin; Z79.899 Other long term (current) drug therapy
CPT/HCPCS: 83036; 85025; 88300

== ENCOUNTER → 2016-07-16 | Outpatient (CLI) | payer MEDICARE ==
[2016-07-16 08:03] LABS: CH 31.9; CHCM 34.9; HCT 41.4 % (39.0-53.0); HDW 2.99; HGB 14.7 gm/dL (13.0-17.5); MCH 32.7 pg (25.0-35.0); MCHC 35.6 g/dL (31.0-37.0); MCV 91.7 fL (80.0-100.0); Mean Platelet Volume 7.3; RBC 4.51 m/uL (4.30-5.90); RDW 13.5 % (11.5-15.5); WBC 7.8 k/uL (3.8-10.6)
[2016-07-16 08:20] LABS: ALT 28 U/L (21-72); AST 20 U/L (17-59); Alkaline Phosphatase 73 U/L (38-126); Anion Gap 10 mmol/L; Blood Urea Nitrogen 23 mg/dL (9-20); Calcium 9.5 mg/dL (8.4-10.2); Carbon Dioxide 29 mmol/L (22-30); Chloride 104 mmol/L (98-107); Cholesterol 127 mg/dL (<200); Glucose 124 mg/dL (74-99); HDL Cholesterol 39 mg/dL (40-60); Non-African American GFR(MDRD) >60 (>60 ml/min/1.73 sqM); Potassium 4.6 mmol/L (3.5-5.1); Sodium 143 mmol/L (137-145); Total Bilirubin 0.6 mg/dL (0.2-1.3); Total Protein 7.1 g/dL (6.3-8.2); Triglycerides 210 mg/dL (<150)
[2016-07-16 12:05] LABS: Hemoglobin A1C 5.2 % (4.2-6.1)
== END ==
LOC: LABWHC1 07:29
PROVIDERS: ATTEND Internal Medicine
DX: Z00.00 Encounter for general adult medical examination without abnormal findings (principal); E11.9 Type 2 diabetes mellitus without complications; I11.9 Hypertensive heart disease without heart failure; E78.2 Mixed hyperlipidemia
CPT/HCPCS: 36415; 80053; 80061; 83036; 85027

== ENCOUNTER → 2016-11-07 | Outpatient (CLI) | payer MEDICARE ==
[2016-11-07 09:15] LABS: CH 32.1; CHCM 34.5; HCT 43.2 % (39.0-53.0); HDW 2.89; HGB 15.2 gm/dL (13.0-17.5); MCH 32.9 pg (25.0-35.0); MCHC 35.2 g/dL (31.0-37.0); MCV 93.5 fL (80.0-100.0); Mean Platelet Volume 7.3; RBC 4.62 m/uL (4.30-5.90); RDW 12.9 % (11.5-15.5); WBC 7.7 k/uL (3.8-10.6)
== END | disposition home or self-care (01) ==
LOC: LABWHC1 08:18
PROVIDERS: ATTEND Internal Medicine
DX: D50.9 Iron deficiency anemia, unspecified (principal)
CPT/HCPCS: 36415; 85027

== ENCOUNTER → 2017-05-07 | Outpatient (CLI) | payer MEDICARE ==
[2017-05-07 07:37] LABS: HCT 45.4 % (39.0-53.0); HGB 15.3 gm/dL (13.0-17.5); MCH 31.2 pg (25.0-35.0); MCHC 33.6 g/dL (31.0-37.0); MCV 92.8 fL (80.0-100.0); Mean Platelet Volume 7.1; Platelet Count 174 k/uL (150-450); RBC 4.89 m/uL (4.30-5.90); RDW 12.9 % (11.5-15.5); WBC 7.1 k/uL (3.8-10.6)
[2017-05-07 07:52] LABS: ALT 41 U/L (21-72); AST 25 U/L (17-59); Albumin 4.4 g/dL (3.5-5.0); Alkaline Phosphatase 73 U/L (38-126); Anion Gap 11 mmol/L; Blood Urea Nitrogen 16 mg/dL (9-20); Calcium 9.6 mg/dL (8.4-10.2); Carbon Dioxide 29 mmol/L (22-30); Chloride 105 mmol/L (98-107); Cholesterol 111 mg/dL (<200); Glucose 147 mg/dL (74-99); HDL Cholesterol 40 mg/dL (40-60); LDL Cholesterol,Calculated 36 mg/dL (0-99); Potassium 4.6 mmol/L (3.5-5.1); Sodium 145 mmol/L (137-145); Total Bilirubin 0.7 mg/dL (0.2-1.3); Total Protein 6.9 g/dL (6.3-8.2); Triglycerides 176 mg/dL (<150)
[2017-05-07 08:04] LABS: T4, Free (Free Thyroxine) 1.06 ng/dL (0.78-2.19)
--- NOTE | 2017-05-07 08:27 | XR ---
EXAMINATION TYPE: XR chest 2V DATE OF EXAM: 05/07/2017 COMPARISON: Prior chest x-ray 12/14/2015 HISTORY: E 11.9 TECHNIQUE: Frontal and lateral views of the chest are obtained. FINDINGS: There is no focal air space opacity, pleural effusion, or pneumothorax seen. The cardiac silhouette size is within normal limits. Right hemidiaphragm is chronically elevated. The osseous st ructures are intact. IMPRESSION: No acute cardiopulmonary process.
[2017-05-07 20:06] LABS: Hemoglobin A1C 5.4 % (4.0-6.0)
== END | disposition home or self-care (01) ==
LOC: LABWHC1 07:11
PROVIDERS: ATTEND Internal Medicine
DX: Z00.01 Encounter for general adult medical examination with abnormal findings (principal); E11.9 Type 2 diabetes mellitus without complications; E78.00 Pure hypercholesterolemia, unspecified; K20.0 Eosinophilic esophagitis; N40.1 Benign prostatic hyperplasia with lower urinary tract symptoms
CPT/HCPCS: 36415; 71046; 80053; 80061; 82043; 82272; 82570; 83036; 84439; 84443; 85027

== ENCOUNTER → 2018-03-02 | Outpatient (CLI) | payer MEDICARE ==
[2018-03-02 08:20] LABS: HCT 48.9 % (39.0-53.0); HGB 16.3 gm/dL (13.0-17.5); MCH 31.5 pg (25.0-35.0); MCHC 33.4 g/dL (31.0-37.0); MCV 94.4 fL (80.0-100.0); Platelet Count 170 k/uL (150-450); RBC 5.18 m/uL (4.30-5.90); RDW 12.7 % (11.5-15.5); WBC 5.9 k/uL (3.8-10.6)
[2018-03-02 16:22] LABS: Albumin 4.5 g/dL (3.80-4.90); Albumin/Globulin Ratio 2.5 (1.20-2.10); Anion Gap 5.5 mmol/L (4.00-12.00); Calcium 9.7 mg/dL (8.7-10.3); Carbon Dioxide 31.5 mmol/L (21.6-31.8); Globulin 1.8 g/dL (2.1-3.7); LDL Cholesterol,Calculated 49.8 mg/dL (0.0-131.0); Potassium 4.6 mmol/L (3.5-5.5); Total Bilirubin 0.6 mg/dL (0.3-1.2); Total Protein 6.3 g/dL (6.2-8.2); VLDL Calculation 35.2 mg/dL (5.00-40.00)
[2018-03-02 20:01] LABS: Hemoglobin A1C 5.9 % (4.0-6.0)
== END | disposition home or self-care (01) ==
LOC: LABWHC1 07:20
PROVIDERS: ATTEND Internal Medicine
DX: I11.9 Hypertensive heart disease without heart failure (principal); E11.9 Type 2 diabetes mellitus without complications; E78.2 Mixed hyperlipidemia; N40.1 Benign prostatic hyperplasia with lower urinary tract symptoms
CPT/HCPCS: 36415; 80053; 80061; 83036; 84153; 85027

== ENCOUNTER → 2018-09-14 | Outpatient (CLI) | payer MEDICARE ==
[2018-09-14 12:32] LABS: Basophils # (A) 0.1 k/uL (0-0.2); Basophils % (A) 1 %; Eosinophils # (A) 0.3 k/uL (0-0.7); Eosinophils % (A) 5 %; HCT 48.9 % (39.0-53.0); HGB 15.8 gm/dL (13.0-17.5); Lymphocytes # (A) 2.1 k/uL (1.0-4.8); Lymphocytes % (A) 32 %; MCH 29.8 pg (25.0-35.0); MCHC 32.3 g/dL (31.0-37.0); MCV 92.3 fL (80.0-100.0); Mean Platelet Volume 7.5; Monocytes # (A) 0.4 k/uL (0-1.0); Monocytes % (A) 6 %; Neutrophils # (A) 3.6 k/uL (1.3-7.7); Neutrophils % (A) 55 %; Platelet Count 179 k/uL (150-450); RDW 14.6 % (11.5-15.5); WBC 6.5 k/uL (3.8-10.6)
--- NOTE | 2018-09-14 13:24 | XR ---
EXAMINATION TYPE: XR chest 2V DATE OF EXAM: 09/14/2018 COMPARISON: Prior chest x-ray 05/07/2017 HISTORY: Cough TECHNIQUE: Frontal and lateral views of the chest are obtained. FINDINGS: There is persistent elevation of the right hemidiaphragm and blunting of the right costoph renic angle. There is no pneumothorax. Cardiac mediastinal silhouette, pulmonary vascularity and chivo are stable. IMPRESSION: Stable abnormal findings.
[2018-09-14 18:30] LABS: Anion Gap 7.3 mmol/L (4.00-12.00); Calcium 9.5 mg/dL (8.7-10.3); Carbon Dioxide 27.7 mmol/L (21.6-31.8); Potassium 4.9 mmol/L (3.5-5.5)
== END | disposition home or self-care (01) ==
LOC: LABWHC1 11:15
PROVIDERS: ATTEND Internal Medicine
DX: R05 Cough (principal); J06.9 Acute upper respiratory infection, unspecified; J12.9 Viral pneumonia, unspecified; J40 Bronchitis, not specified as acute or chronic
CPT/HCPCS: 36415; 71046; 80048; 85025

== ENCOUNTER → 2019-02-15 | Outpatient (CLI) | payer MEDICARE ==
[2019-02-15 07:55] LABS: Basophils # (A) 0.1 k/uL (0-0.2); Basophils % (A) 1 %; Eosinophils # (A) 0.2 k/uL (0-0.7); Eosinophils % (A) 3 %; HCT 46.6 % (39.0-53.0); HGB 15.7 gm/dL (13.0-17.5); Lymphocytes # (A) 1.9 k/uL (1.0-4.8); Lymphocytes % (A) 28 %; MCH 31.5 pg (25.0-35.0); MCHC 33.8 g/dL (31.0-37.0); MCV 93.1 fL (80.0-100.0); Monocytes # (A) 0.4 k/uL (0-1.0); Monocytes % (A) 6 %; Neutrophils % (A) 60 %; Platelet Count 223 k/uL (150-450); RDW 12.7 % (11.5-15.5); WBC 6.6 k/uL (3.8-10.6)
[2019-02-15 09:42] LABS: Erythrocyte Sedimentation Rate 5 mm/hr (0-15)
[2019-02-15 12:16] LABS: ALT 42 U/L (10-49); AST 35 U/L (14-35); African American GFR (CKD) 86.8 (60.0-200.0); Albumin/Globulin Ratio 2.56 (1.60-3.17); Alkaline Phosphatase 71 U/L (41-126); C Reactive Protein <0.4 mg/dL (0.0-0.8); Calcium 9.2 mg/dL (8.7-10.3); Carbon Dioxide 29.7 mmol/L (21.6-31.8); Chloride 106 mmol/L (96-109); Chol/HDL Ratio 3.17; Cholesterol 114 mg/dL (0-200); Creatine Kinase 123 U/L (35-257); Globulin 1.8 g/dL (1.6-3.3); Glucose 142 mg/dL (70-110); Potassium 4.8 mmol/L (3.5-5.5); Sodium 142 mmol/L (135-145); Total Bilirubin 0.6 mg/dL (0.3-1.2); Total Protein 6.4 g/dL (6.2-8.2)
[2019-02-15 13:42] LABS: Appearance,Urine Clear (Clear); Bilirubin,Urine Negative (Negative); Blood,Urine Negative (Negative); Color,Urine Yellow; Glucose,Urine (UA) Negative (Negative); Ketones,Urine Negative (Negative); Leukocyte Esterase,Urine Negative (Negative); Nitrite,Urine Negative (Negative); PH, Urine 5.5 (5.0-8.0); Protein,Urine Trace (Negative); Urobilinogen,Urine <2.0 mg/dL (<2.0)
== END | disposition home or self-care (01) ==
LOC: LABWHC1 07:06
PROVIDERS: ATTEND Internal Medicine
DX: D64.9 Anemia, unspecified (principal); E11.65 Type 2 diabetes mellitus with hyperglycemia; E87.8 Other disorders of electrolyte and fluid balance, not elsewhere classified; I10 Essential (primary) hypertension; E78.5 Hyperlipidemia, unspecified; E55.9 Vitamin D deficiency, unspecified; N40.0 Benign prostatic hyperplasia without lower urinary tract symptoms; R80.9 Proteinuria, unspecified
CPT/HCPCS: 36415; 80053; 80061; 81003; 82043; 82272; 82550; 82570; 83036; 84153; 84443; 85025; 85652; 86140

== ENCOUNTER → 2019-03-10 | Outpatient (CLI) | payer MEDICARE ==
--- NOTE | 2019-03-10 10:02 | ECHOF ---
Referral Reason:I48.91 I11.9 MEASUREMENTS -------- HEIGHT: 172.7 cm WEIGHT: 99.3 kg BP: RVIDd: 3.1 cm (< 3.3) IVSd: 1.8 cm (0.6 - 1.1) LVIDd: 2.9 cm (3.9 - 5.3) LVPWd: 1.7 cm (0.6 - 1.1) IVSs: 2.1 cm LVIDs: 2.3 cm LVPWs: 2.3 cm LAESV Index (A-L): 28.21 ml/m Ao Diam: 3.2 cm (2.0 - 3.7) AV Cusp: 1.9 cm (1.5 - 2.6) LA Diam: 4.5 cm (2.7 - 3.8) MV EXCURSION: 21.020 mm (> 18.000) MV EF SLOPE: 152 mm/s (70 - 150) EPSS: 0.6 cm RAP: 5.00 mmHg RVSP: 32.38 mmHg FINDINGS -------- Atrial fibrillation. This was a technically adequate study. The left ventricular size is normal. There is severe concentric left ventricular hypertrophy. Ove rall left ventricular systolic function is normal with, an EF between 55 - 60 %. Left ventricular f illimg pressure cannot be estimated due to Atrial fibrillation. The right ventricle is normal in size. The left atrium is mildly dilated. Normal LA size by volume 22+/-6 ml/m2. The right atrial size is normal. The aortic valve is trileaflet and appears structurally normal. The mitral valve is normal. Mild mitral regurgitation is present. The tricuspid valve appears structurally normal. Mild tricuspid regurgitation present. Right vent ricular systolic pressure is normal at < 35 mmHg. There is no pulmonic regurgitation present. The aortic root size is normal. Normal inferior vena cava with normal inspiratory collapse consistent with estimated right atrial pre ssure of 5 mmHg. There is no pericardial effusion. CONCLUSIONS -------- 1. Atrial fibrillation. 2. This was a technically adequate study. 3. The left ventricular size is normal. 4. There is severe concentric left ventricular hypertrophy. 5. Overall left ventricular systolic function is normal with, an EF between 55 - 60 %. 6. Left ventricular fillimg pressure cannot be estimated due to Atrial fibrillation. 7. The right ventricle is normal in size. 8. The left atrium is mildly dilated. 9. Normal LA size by volume 22+/-6 ml/m2. 10. The right atrial size is normal. 11. The aortic valve is trileaflet and appears structurally normal. 12. The mitral valve is normal. 13. Mild mitral regurgitation is present. 14. The tricuspid valve appears structurally normal. 15. Mild tricuspid regurgitation present. 16. Right ventricular systolic pressure is normal at < 35 mmHg. 17. There is no pulmonic regurgitation present. 18. The aortic root size is normal. 19. Normal inferior vena cava with normal inspiratory collapse consistent with estimated right atrial pressure of 5 mmHg. 20. There is no pericardial effusion. GEAR CHANGER: Beth Duffy RDCS
== END | disposition home or self-care (01) ==
LOC: RADECHMAIN 08:20
PROVIDERS: ATTEND Internal Medicine
DX: I48.91 Unspecified atrial fibrillation (principal); I08.1 Rheumatic disorders of both mitral and tricuspid valves; I11.9 Hypertensive heart disease without heart failure; Z88.0 Allergy status to penicillin
CPT/HCPCS: 93306

== ENCOUNTER → 2019-05-04 | Outpatient (CLI) | payer MEDICARE ==
[2019-05-04 09:23] LABS: HCT 46.2 % (39.0-53.0); HGB 15.9 gm/dL (13.0-17.5); MCH 32.8 pg (25.0-35.0); MCHC 34.4 g/dL (31.0-37.0); MCV 95.5 fL (80.0-100.0); Mean Platelet Volume 7.6; Platelet Count 207 k/uL (150-450); RBC 4.84 m/uL (4.30-5.90); RDW 12.5 % (11.5-15.5); WBC 7.7 k/uL (3.8-10.6)
[2019-05-04 09:33] LABS: Potassium 4.9 mmol/L (3.5-5.1)
== END | disposition home or self-care (01) ==
LOC: LABPAT 08:46
PROVIDERS: ATTEND Internal Medicine Interventional Cardiology
DX: Z01.812 Encounter for preprocedural laboratory examination (principal); R94.39 Abnormal result of other cardiovascular function study
CPT/HCPCS: 36415; 80051; 82565; 84520; 85027

== ENCOUNTER 2019-05-07 06:21 | Day surgery (SDC) | payer MEDICARE ==
[2019-05-06 09:38] VITALS: BMI 33.7
[~2019-05-07 06:21] MED LIST changes: -ACETAMINOPHEN TAB 500 MG TAB PO ONE; +ALPRAZolam 0.25 MG TAB PO PRN; +ALPRAZolam 0.5 MG TAB PO PRN; -CLINDAMYCIN 900 MG in DEXTROSE 5% IN WATER 50 ML IVPB ONE; -DEXAMETHASONE SOD PHOSPHATE 10 MG/ML 1 ML VIAL IV ONE; -LACTATED RINGERS 1,000 ML IV SCH; -LIDOCAINE 1% 20 ML VIAL (10MG/ML) FOR IV START INTRADERMA PRN; -MELOXICAM 7.5 MG TAB PO ONE; -MIDAZOLAM 2 MG/2 ML VIAL IV PRN; +NITROGLYCERIN SL TABS 0.4 MG TAB SUBLINGUAL PRN; -ONDANSETRON 4 MG/2 ML VIAL IVP ONE; -SCOPOLAMINE 1.5MG/72HR PATCH TRANSDERM ONE; +SODIUM CHLORIDE 0.9% 1,000 ML in EMPTY BAG 1 BAG IV ONE; -TRANEXAMIC ACID 1,000 MG in SODIUM CHLORIDE 0.9% 100 ML IVPB ONE
[2019-05-07 06:55] LABS: Glucose,Whole Blood 143 mg/dL (75-99)
[2019-05-07 06:57] VITALS: RESP 18; TEMP 97.6
[2019-05-07] MEDS ORDERED: ASPIRIN 325 MG TAB PO ONE (07:00)
[2019-05-07] MEDS ORDERED: fentaNYL (PF) 50 MCG/ML 2 ML AMP IV ONE (07:29)
[2019-05-07] MEDS ORDERED: LIDOCAINE 1% INJ 10MG/ML (20 ML MDV) SQ ONE (07:30)
[2019-05-07] MEDS ORDERED: MIDAZOLAM 2 MG/2 ML VIAL IV ONE (07:31)
[2019-05-07] MEDS ORDERED: VERAPAMIL SYRINGE (5 MG/10 ML) INTRAARTER ONE (07:32)
[2019-05-07] MEDS ORDERED: HEPARIN SODIUM 1,000 UN/ML (10ML VL) IV ONE (07:40)
[2019-05-07] MEDS ORDERED: IOPAMIDOL-370 125ML BTL INJ ONE (07:40)
[2019-05-07] MEDS ORDERED: RX INFO: IV CONTRAST WAS GIVEN 1 EACH MISC MISCELLANE PRN (07:50)
[2019-05-07] MEDS ORDERED: SODIUM CHLORIDE 0.9% 1,000 ML IV SCH (08:00)
--- NOTE | 2019-05-07 08:18 | CC ---
CARDIAC CATHETERIZATION REPORT Mr. Conrad is a 74-year-old male with a known history of atrial fibrillation, history of hypertension and diabetes mellitus. He recently underwent a myocardial perfusion imaging that revealed evidence of inducible ischemia with transient ischemic dilatation of the left ventricle. In view of that, recommendation regarding cardiac catheterization, the procedures, risks, and complications were discussed with the patient who is in full understanding and agreement. PROCEDURE: Patient was brought to [facility] facility in a fasting semi-sedated state after receiving fentanyl and Benadryl and achieving moderate conscious sedated state. Using Xylocaine anesthesia and Seldinger technique, a 6-Georgian sheath was introduced in the right radial artery. Selective right and left coronary angiography performed using 5-Georgian 3.5 bend right and left Venkat catheter, multiple views of the coronary artery including hemiaxial views obtained. The right Venkat was used to cross the aortic valve and left ventricular end-diastolic pressure was calculated. Following that, the catheter and sheaths were removed. Hemostasis was obtained with deployment of a TR band. There was no immediate complication. Patient is returned to his room in stable condition. Of note, the patient received 5000 units of intravenous heparin as well as intra-arterial verapamil. FINDINGS: LEFT MAIN: This is a large-sized vessel, bifurcating into left circumflex, left anterior descending artery. Left main coronary artery has no evidence of high-grade stenosis. LEFT ANTERIOR DESCENDING ARTERY: This is a large-sized vessel, reaching toward the apex with a wraparound apex segment giving rise to a large diagonal branch proximally. The diagonal branch has a 50% plaque proximally. The LAD has no evidence of high-grade stenosis. LEFT CIRCUMFLEX: This is a nondominant vessel, large in caliber, that has approximately a 20% plaque. The rest of the vessel has no high-grade stenosis. RIGHT CORONARY ARTERY: This is a large dominant vessel, bifurcating distally, PDA and posterolateral segment and branches. The right coronary artery in mid segment has a 10% to 20% plaque. The rest of the vessel has no high-grade stenosis. LEFT VENTRICULOGRAM: Left ventriculogram was not performed. HEMODYNAMICS: There was no gradient across the aortic valve. The ventricular end- diastolic pressure was 20-24 mmHg. CONCLUSION: 1. 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 2. Mildly elevated left ventricular end-diastolic pressure. RECOMMENDATION: In view of finding anatomy, recommend continue medical therapy with aggressive coronary risk modifications being initiated. Those findings and recommendation were discussed with the patient and his family and they are in full understanding and agreement. Duration of the procedure is 14 minutes. SAGAR / CAMILON: [id number] /
--- NOTE | 2019-05-07 08:24 | LTR ---
DATE OF SERVICE: 05/07/2019 RE: Juancarlos Conrad Dear Dr. Bustamante; I had the pleasure to perform cardiac catheterization on Mr. Conrad at [facility] on May 07 and a full copy of the procedure note garland be forwarded to you. I brief he was found to have moderate disease in the left circumflex with mild disease in the RCA and the left circumflex and based on those findings, I recommend continue medical therapy with aggressive coronary risk modification that has been initiated. Thank you again for allowing me to participate in the patient's care. Please feel free to call for any questions. Sincerely yours, MD TIMOTHY FontaineL / CAMILON: [id number] / MTDD
[2019-05-07] MEDS ORDERED: TAMSULOSIN 0.4 MG CAP.ER.24H PO SCH (09:00)
[2019-05-07] MEDS ORDERED: hydrALAZINE HCL 25 MG TAB PO SCH (09:00)
[2019-05-07] MEDS ORDERED: ATENOLOL 50 MG TAB PO SCH (09:00)
[2019-05-07] MEDS ORDERED: amLODIPine 5 MG TAB PO SCH (09:00)
[2019-05-07] MEDS ORDERED: LISINOPRIL 20 MG TAB PO SCH (09:00)
[2019-05-07 09:41] VITALS: BP 151/83; PULSE 80
[2019-05-08] MEDS ORDERED: PANTOPRAZOLE 40 MG TABLET PO SCH (07:30)
== END 2019-05-07 13:00 | disposition home or self-care (01) ==
LOC: CATHCVL 06:21
PROVIDERS: ATTEND Internal Medicine Interventional Cardiology
DX: I25.10 Atherosclerotic heart disease of native coronary artery without angina pectoris (principal); I48.21 Permanent atrial fibrillation; I10 Essential (primary) hypertension; E11.9 Type 2 diabetes mellitus without complications; Z79.01 Long term (current) use of anticoagulants; Z79.84 Long term (current) use of oral hypoglycemic drugs; Z79.899 Other long term (current) drug therapy; Z88.0 Allergy status to penicillin
CPT/HCPCS: 93458; C1769; C1894; J2250; J2001; J3010; J1644; Q9967

== ENCOUNTER → 2019-05-24 | Outpatient (CLI) | payer MEDICARE ==
[2019-05-24 11:49] LABS: Chol/HDL Ratio 2.31; LDL Cholesterol,Calculated 20.8 mg/dL (0.0-131.0); VLDL Calculation 21.2 mg/dL (5.00-40.00)
[2019-05-24 14:24] LABS: Hemoglobin A1C 6.1 % (4.0-6.0)
== END | disposition home or self-care (01) ==
LOC: LABWHC1 07:15
PROVIDERS: ATTEND Internal Medicine Interventional Cardiology
DX: E11.65 Type 2 diabetes mellitus with hyperglycemia (principal); E78.2 Mixed hyperlipidemia
CPT/HCPCS: 36415; 80061; 82947; 83036; 84450; 84460

== ENCOUNTER → 2020-02-29 | Outpatient (CLI) | payer MEDICARE ==
[2020-02-29 10:00] LABS: Basophils % (A) 1 %; Eosinophils # (A) 0.2 k/uL (0-0.7); Eosinophils % (A) 2 %; HCT 46.6 % (39.0-53.0); HGB 15.3 gm/dL (13.0-17.5); Lymphocytes # (A) 2.2 k/uL (1.0-4.8); Lymphocytes % (A) 30 %; MCH 30.8 pg (25.0-35.0); MCHC 32.7 g/dL (31.0-37.0); MCV 94.1 fL (80.0-100.0); Mean Platelet Volume 7.6; Monocytes # (A) 0.4 k/uL (0-1.0); Monocytes % (A) 6 %; Neutrophils # (A) 4.3 k/uL (1.3-7.7); Neutrophils % (A) 60 %; Platelet Count 167 k/uL (150-450); RBC 4.96 m/uL (4.30-5.90); RDW 13.3 % (11.5-15.5); WBC 7.2 k/uL (3.8-10.6)
[2020-02-29 15:44] LABS: African American GFR (CKD) 76.2 (60.0-200.0); Albumin 4.5 g/dL (3.80-4.90); Albumin/Globulin Ratio 2.37 (1.60-3.17); Anion Gap 8.8 mmol/L (4.00-12.00); BUN/Creat Ratio 18.18 Ratio (12.00-20.00); Calcium 9.7 mg/dL (8.7-10.3); Carbon Dioxide 29.2 mmol/L (21.6-31.8); Chol/HDL Ratio 2.3; Globulin 1.9 g/dL (1.6-3.3); LDL Cholesterol,Calculated 25.6 mg/dL (0.0-131.0); Non-African American GFR(CKD) 65.8 (60.0-200.0); Potassium 4.9 mmol/L (3.5-5.5); Prostate Specific Antigen 1.5 ng/mL (0.0-6.5); Total Bilirubin 0.6 mg/dL (0.2-1.2); Total Protein 6.4 g/dL (6.2-8.2); VLDL Calculation 17.4 mg/dL (5.00-40.00)
[2020-02-29 16:44] LABS: Erythrocyte Sedimentation Rate 5 mm/Hr (0-20)
[2020-02-29 18:59] LABS: Hemoglobin A1C 6.6 % (4.0-6.0)
== END | disposition home or self-care (01) ==
LOC: LABWHC1 08:41
PROVIDERS: ATTEND Internal Medicine
DX: E78.5 Hyperlipidemia, unspecified (principal); E66.9 Obesity, unspecified; E55.9 Vitamin D deficiency, unspecified; M81.0 Age-related osteoporosis without current pathological fracture; E03.9 Hypothyroidism, unspecified; E11.65 Type 2 diabetes mellitus with hyperglycemia; I10 Essential (primary) hypertension; D64.9 Anemia, unspecified; N40.0 Benign prostatic hyperplasia without lower urinary tract symptoms
CPT/HCPCS: 36415; 80053; 80061; 82306; 82550; 83036; 84153; 84443; 85025; 85652

== ENCOUNTER → 2020-11-08 | Outpatient (CLI) | payer MEDICARE ==
--- NOTE | 2020-11-08 13:33 | XR ---
EXAMINATION TYPE: XR chest 2V DATE OF EXAM: 11/08/2020 COMPARISON: 09/14/2018 TECHNIQUE: PA and lateral views submitted. HISTORY: Difficulty breathing FINDINGS: Subsegmental changes right lung base with elevated hemidiaphragm. Left lung clear. Heart size stable. No pneumothorax or overt failure. Calcification along the right humeral head can be associated with chronic calcific tendinosis. IMPRESSION: 1. 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 Consolidation is stable at the right lung base may been the basis of chronic atelectasis rather than infiltrate correlate clinically .
== END | disposition home or self-care (01) ==
LOC: RADXRMAIN 12:13
PROVIDERS: ATTEND Internal Medicine
DX: J98.6 Disorders of diaphragm (principal)
CPT/HCPCS: 71046

== ENCOUNTER → 2021-04-18 | Outpatient (CLI) | payer MEDICARE ==
[2021-04-18 11:05] LABS: ALT 17 U/L (10-49); AST 16 U/L (14-35); African American GFR (CKD) 96.5 (60.0-200.0); Albumin 4.5 g/dL (3.8-4.9); Albumin/Globulin Ratio 2.14 (1.60-3.17); Alkaline Phosphatase 80 U/L (41-126); BUN/Creat Ratio 22.56 Ratio (12.00-20.00); Blood Urea Nitrogen 20.3 mg/dL (9.0-27.0); Calcium 9.2 mg/dL (8.7-10.3); Carbon Dioxide 22.1 mmol/L (20.0-27.5); Chloride 107 mmol/L (96-109); Chol/HDL Ratio 1.99 Ratio; Creatine Kinase 79 U/L (35-257); Globulin 2.1 g/dL (1.6-3.3); Glucose 165 mg/dL (70-110); LDL Cholesterol,Calculated 21.8 mg/dL (0.0-131.0); Magnesium 1.6 mg/dL (1.5-2.4); Non-African American GFR(CKD) 83.3 (60.0-200.0); Phosphorus 3.6 mg/dL (2.4-5.1); Sodium 141 mmol/L (135-145); Total Protein 6.6 g/dL (6.2-8.2); Uric Acid 4.2 mg/dL (3.7-8.7); VLDL Calculation 17.24 mg/dL (5.00-40.00)
[2021-04-18 11:09] LABS: C Reactive Protein <0.30 mg/dL (0.00-0.80)
[2021-04-18 22:01] LABS: Basophils # (A) 0.04 X 10*3/uL (0.00-0.10); Basophils % (A) 0.7 %; Eosinophils # (A) 0.15 X 10*3/uL (0.04-0.35); Eosinophils % (A) 2.5 %; HCT 43.3 % (39.6-50.0); HGB 13.4 g/dL (13.0-17.0); Lymphocytes # (A) 1.51 X 10*3/uL (0.90-5.00); Lymphocytes % (A) 25.5 %; MCH 30.1 pg (27.0-32.0); MCHC 30.9 g/dL (32.0-37.0); MCV 97.3 fL (80.0-97.0); Mean Platelet Volume 10.4 fL (9.5-12.2); Monocytes # (A) 0.42 X 10*3/uL (0.20-1.00); Monocytes % (A) 7.1 %; Neutrophils # (A) 3.77 X 10*3/uL (1.80-7.70); Neutrophils % (A) 63.7 %; Platelet Count 175 X 10*3/uL (140-440); RBC 4.45 X 10*6/uL (4.40-5.60); RDW 14.1 % (11.5-14.5); WBC 5.92 X 10*3/uL (4.50-10.00)
[2021-04-18 22:51] LABS: Erythrocyte Sedimentation Rate 5 mm/Hr (0-20)
== END | disposition home or self-care (01) ==
LOC: LABWHC1 07:13
PROVIDERS: ATTEND Internal Medicine
DX: Z00.00 Encounter for general adult medical examination without abnormal findings (principal); I50.9 Heart failure, unspecified; E78.5 Hyperlipidemia, unspecified; E21.3 Hyperparathyroidism, unspecified; E11.65 Type 2 diabetes mellitus with hyperglycemia; E03.9 Hypothyroidism, unspecified; E66.9 Obesity, unspecified; E55.9 Vitamin D deficiency, unspecified; E78.2 Mixed hyperlipidemia; D64.9 Anemia, unspecified; N40.0 Benign prostatic hyperplasia without lower urinary tract symptoms; J44.9 Chronic obstructive pulmonary disease, unspecified; M81.0 Age-related osteoporosis without current pathological fracture; R80.9 Proteinuria, unspecified
CPT/HCPCS: 36415; 80053; 80061; 82043; 82272; 82306; 82550; 82570; 83036; 83735; 83970; 84100; 84153; 84439; 84443; 84550; 85025; 85652; 86140

== ENCOUNTER → 2021-05-22 | Outpatient (CLI) | payer MEDICARE ==
--- NOTE | 2021-05-22 09:09 | XR ---
EXAMINATION TYPE: XR chest 2V DATE OF EXAM: 05/22/2021 COMPARISON: 11/08/2020 TECHNIQUE: PA and lateral views submitted. HISTORY: Shortness of breath FINDINGS: Persistent elevated right hemidiaphragm with bilateral areas of subsegmental consolidation and small mild perihilar central interstitial pattern similar to prior exam with no pneumothorax. Arthropathy o f the shoulders correlate for calcific tendinosis on the right. Atherosclerotic change aorta. IMPRESSION: 1. Bibasilar infiltrate and small effusion. 2. 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
[2021-05-22 14:41] LABS: Basophils # (A) 0.04 X 10*3/uL (0.00-0.10); Basophils % (A) 0.7 %; Eosinophils # (A) 0.11 X 10*3/uL (0.04-0.35); Eosinophils % (A) 1.8 %; HCT 40.6 % (39.6-50.0); HGB 12.4 g/dL (13.0-17.0); Immature Grans, Automated 0.3 %; Lymphocytes # (A) 1.26 X 10*3/uL (0.90-5.00); MCH 28.9 pg (27.0-32.0); MCHC 30.5 g/dL (32.0-37.0); MCV 94.6 fL (80.0-97.0); Mean Platelet Volume 10.1 fL (9.5-12.2); Monocytes # (A) 0.44 X 10*3/uL (0.20-1.00); Monocytes % (A) 7.3 %; NRBC Per 100 WBC 0 /100 WBCS (0.0-0.0); Neutrophils # (A) 4.14 X 10*3/uL (1.80-7.70); Neutrophils % (A) 68.9 %; Platelet Count 172 X 10*3/uL (140-440); RBC 4.29 X 10*6/uL (4.40-5.60); RDW 13.9 % (11.5-14.5); WBC 6.01 X 10*3/uL (4.50-10.00)
[2021-05-22 14:53] LABS: African American GFR (CKD) 89.5 (60.0-200.0); Albumin 4.2 g/dL (3.8-4.9); Albumin/Globulin Ratio 1.78 (1.60-3.17); Anion Gap 13.6 mmol/L (10.00-18.00); BUN/Creat Ratio 13.36 Ratio (12.00-20.00); Blood Urea Nitrogen 12.8 mg/dL (9.0-27.0); Calcium 9.2 mg/dL (8.7-10.3); Carbon Dioxide 24.8 mmol/L (20.0-27.5); Globulin 2.4 g/dL (1.6-3.3); Non-African American GFR(CKD) 77.2 (60.0-200.0); Total Bilirubin 0.7 mg/dL (0.30-1.20); Total Protein 6.5 g/dL (6.2-8.2)
== END | disposition home or self-care (01) ==
LOC: LABWHC1 08:30
PROVIDERS: ATTEND Internal Medicine
DX: R06.02 Shortness of breath (principal); R91.8 Other nonspecific abnormal finding of lung field; Z86.16 Personal history of COVID-19
CPT/HCPCS: 36415; 71046; 80053; 85025

== ENCOUNTER → 2021-06-29 | Outpatient (CLI) | payer MEDICARE ==
[2021-06-29 15:09] LABS: African American GFR (CKD) 92.5 (60.0-200.0); Anion Gap 12.7 mmol/L (10.00-18.00); Blood Urea Nitrogen 20.5 mg/dL (9.0-27.0); Carbon Dioxide 24.7 mmol/L (20.0-27.5); Non-African American GFR(CKD) 79.8 (60.0-200.0); Potassium 4.2 mmol/L (3.5-5.5)
== END | disposition home or self-care (01) ==
LOC: LABWHC1 09:15
PROVIDERS: ATTEND Internal Medicine Interventional Cardiology
DX: R06.02 Shortness of breath (principal)
CPT/HCPCS: 36415; 80051; 82565; 83880; 84520

== ENCOUNTER → 2021-07-31 | Outpatient (CLI) | payer MEDICARE ==
[2021-07-31 22:51] LABS: Basophils # (A) 0.07 X 10*3/uL (0.00-0.10); Basophils % (A) 1.1 %; Eosinophils # (A) 0.26 X 10*3/uL (0.04-0.35); Eosinophils % (A) 4.1 %; HCT 36.8 % (39.6-50.0); HGB 10.9 g/dL (13.0-17.0); Immature Grans, Automated 0.3 %; Lymphocytes # (A) 1.33 X 10*3/uL (0.90-5.00); Lymphocytes % (A) 21.2 %; MCH 27.6 pg (27.0-32.0); MCHC 29.6 g/dL (32.0-37.0); MCV 93.2 fL (80.0-97.0); Mean Platelet Volume 10.8 fL (9.5-12.2); Monocytes # (A) 0.59 X 10*3/uL (0.20-1.00); Monocytes % (A) 9.4 %; NRBC Per 100 WBC 0 /100 WBCS (0.0-0.0); Neutrophils # (A) 4.01 X 10*3/uL (1.80-7.70); Neutrophils % (A) 63.9 %; Platelet Count 159 X 10*3/uL (140-440); RBC 3.95 X 10*6/uL (4.40-5.60); RDW 15.6 % (11.5-14.5); WBC 6.28 X 10*3/uL (4.50-10.00)
[2021-07-31 23:04] LABS: African American GFR (CKD) 87.1 (60.0-200.0); Anion Gap 12.3 mmol/L (10.00-18.00); BUN/Creat Ratio 16.94 Ratio (12.00-20.00); Blood Urea Nitrogen 16.6 mg/dL (9.0-27.0); Calcium 8.2 mg/dL (8.7-10.3); Carbon Dioxide 28.9 mmol/L (20.0-27.5); Magnesium 1.3 mg/dL (1.5-2.4); Non-African American GFR(CKD) 75.1 (60.0-200.0); Phosphorus 3.3 mg/dL (2.4-5.1)
== END | disposition home or self-care (01) ==
LOC: LABWHC1 13:24
PROVIDERS: ATTEND Internal Medicine
DX: I48.91 Unspecified atrial fibrillation (principal); D64.9 Anemia, unspecified; E87.8 Other disorders of electrolyte and fluid balance, not elsewhere classified
CPT/HCPCS: 36415; 80048; 83735; 84100; 85025

== ENCOUNTER → 2021-10-03 | Outpatient (CLI) | payer MEDICARE ==
[2021-10-03 14:44] LABS: ALT 23 U/L (10-49); AST 21 U/L (14-35); African American GFR (CKD) 60.7 (60.0-200.0); Albumin 4.5 g/dL (3.8-4.9); Albumin/Globulin Ratio 2.13 (1.60-3.17); Alkaline Phosphatase 95 U/L (41-126); BUN/Creat Ratio 22.27 Ratio (12.00-20.00); Blood Urea Nitrogen 29.4 mg/dL (9.0-27.0); Carbon Dioxide 25.3 mmol/L (20.0-27.5); Chloride 99 mmol/L (96-109); Chol/HDL Ratio 2.54 Ratio; Globulin 2.1 g/dL (1.6-3.3); Glucose 155 mg/dL (70-110); LDL Cholesterol,Calculated 28.4 mg/dL (0.0-131.0); Non-African American GFR(CKD) 52.4 (60.0-200.0); Potassium 5.2 mmol/L (3.5-5.5); Sodium 138 mmol/L (135-145); Total Protein 6.6 g/dL (6.2-8.2)
== END | disposition home or self-care (01) ==
LOC: LABWHC1 08:04
PROVIDERS: ATTEND Internal Medicine Interventional Cardiology
DX: I11.0 Hypertensive heart disease with heart failure (principal); E78.2 Mixed hyperlipidemia; I50.9 Heart failure, unspecified; E11.65 Type 2 diabetes mellitus with hyperglycemia
CPT/HCPCS: 36415; 80053; 80061; 83036; 83880

== ENCOUNTER → 2022-01-08 | Outpatient (CLI) | payer MEDICARE ==
[2022-01-08 14:20] LABS: Basophils # (A) 0.06 X 10*3/uL (0.00-0.10); Basophils % (A) 0.7 %; Eosinophils # (A) 0.31 X 10*3/uL (0.04-0.35); Eosinophils % (A) 3.6 %; HCT 46.6 % (39.6-50.0); HGB 15.6 g/dL (13.0-17.0); Immature Grans, Automated 0.5 %; Lymphocytes # (A) 2.33 X 10*3/uL (0.90-5.00); Lymphocytes % (A) 26.9 %; MCH 31.4 pg (27.0-32.0); MCHC 33.5 g/dL (32.0-37.0); MCV 93.8 fL (80.0-97.0); Mean Platelet Volume 10.2 fL (9.5-12.2); Monocytes # (A) 0.67 X 10*3/uL (0.20-1.00); Monocytes % (A) 7.7 %; NRBC Per 100 WBC 0 /100 WBCS (0.0-0.0); Neutrophils # (A) 5.26 X 10*3/uL (1.80-7.70); Neutrophils % (A) 60.6 %; Platelet Count 192 X 10*3/uL (140-440); RBC 4.97 X 10*6/uL (4.40-5.60); RDW 12.2 % (11.5-14.5); WBC 8.67 X 10*3/uL (4.50-10.00)
[2022-01-08 14:54] LABS: ALT 17 U/L (10-49); AST 19 U/L (14-35); African American GFR (CKD) 74.9 (60.0-200.0); Albumin 4.7 g/dL (3.8-4.9); Albumin/Globulin Ratio 2.01 (1.60-3.17); Alkaline Phosphatase 94 U/L (41-126); BUN/Creat Ratio 11.98 Ratio (12.00-20.00); Blood Urea Nitrogen 13.3 mg/dL (9.0-27.0); Calcium 9.7 mg/dL (8.7-10.3); Carbon Dioxide 26.5 mmol/L (20.0-27.5); Chloride 103 mmol/L (96-109); Creatine Kinase 68 U/L (35-257); Globulin 2.3 g/dL (1.6-3.3); Glucose 154 mg/dL (70-110); Magnesium 1.7 mg/dL (1.5-2.4); Non-African American GFR(CKD) 64.6 (60.0-200.0); Phosphorus 3.9 mg/dL (2.4-5.1); Potassium 4.8 mmol/L (3.5-5.5); Sodium 142 mmol/L (135-145); Uric Acid 5.1 mg/dL (3.7-8.7)
[2022-01-08 15:19] LABS: C Reactive Protein <0.30 mg/dL (0.00-0.80); Chol/HDL Ratio 2.28 Ratio; LDL Cholesterol,Calculated 23.8 mg/dL (0.0-131.0)
[2022-01-08 16:04] LABS: Erythrocyte Sedimentation Rate 8 mm/Hr (0-20)
== END | disposition home or self-care (01) ==
LOC: LABWHC1 07:15
PROVIDERS: ATTEND Internal Medicine
DX: Z00.00 Encounter for general adult medical examination without abnormal findings (principal); N40.0 Benign prostatic hyperplasia without lower urinary tract symptoms; I50.9 Heart failure, unspecified; E87.8 Other disorders of electrolyte and fluid balance, not elsewhere classified; E11.65 Type 2 diabetes mellitus with hyperglycemia; E03.9 Hypothyroidism, unspecified; E66.9 Obesity, unspecified; M81.0 Age-related osteoporosis without current pathological fracture; E55.9 Vitamin D deficiency, unspecified; I48.91 Unspecified atrial fibrillation; I13.0 Hypertensive heart and chronic kidney disease with heart failure and stage 1 through stage 4 chronic kidney disease, or unspecified chronic kidney disease; D63.1 Anemia in chronic kidney disease; N18.30 Chronic kidney disease, stage 3 unspecified; M10.9 Gout, unspecified; E78.5 Hyperlipidemia, unspecified
CPT/HCPCS: 36415; 80053; 80061; 82306; 82550; 83036; 83735; 84100; 84153; 84443; 84550; 85025; 85652; 86140

== ENCOUNTER → 2022-10-09 | Outpatient (CLI) | payer MEDICARE ==
--- NOTE | 2022-10-09 14:51 | XR ---
EXAMINATION TYPE: XR chest 2V DATE OF EXAM: 10/09/2022 12:20 PM COMPARISON: Chest radiographs from 07/16/2021 TECHNIQUE: XR chest 2V Frontal and lateral views of the chest. CLINICAL INDICATION:Male, 77 years old with history of R05.9; FINDINGS: Lungs/Pleura: Elevated right diaphragm with associated atelectasis. There is no evidence of pleural e ffusion, focal consolidation, or pneumothorax. Pulmonary vascularity: Unremarkable. Heart/mediastinum: Cardiomediastinal silhouette is unremarkable. Musculoskeletal: No acute osseous pathology. IMPRESSION: Elevated right diaphragm associated atelectasis similar to prior. No evidence for acute process.
== END | disposition home or self-care (01) ==
LOC: LABWHC1 11:21
PROVIDERS: ATTEND Internal Medicine
DX: J98.11 Atelectasis (principal); Q79.1 Other congenital malformations of diaphragm; R06.00 Dyspnea, unspecified; R05.9 Cough, unspecified
CPT/HCPCS: 71046; 87502; 87634

== ENCOUNTER → 2023-08-26 | Outpatient (CLI) | payer MEDICARE ==
[2023-08-26 14:32] LABS: ALT 21 U/L (10-49); AST 20 U/L (14-35); BUN/Creat Ratio 14.42 Ratio (12.00-20.00); Blood Urea Nitrogen 17.3 mg/dL (9.0-27.0); Calcium 9.4 mg/dL (8.7-10.3); Carbon Dioxide 26.5 mmol/L (21.6-31.8); Chloride 103 mmol/L (96-109); Chol/HDL Ratio 2.27 Ratio; Glucose 161 mg/dL (70-110); LDL Cholesterol,Calculated 28.1 mg/dL (0.0-131.0); Magnesium 1.5 mg/dL (1.5-2.4); Phosphorus 3.7 mg/dL (2.4-5.1); Potassium 5.1 mmol/L (3.5-5.5); Sodium 140 mmol/L (135-145)
== END | disposition home or self-care (01) ==
LOC: LABWHC1 07:32
PROVIDERS: ATTEND Internal Medicine Interventional Cardiology
DX: I10 Essential (primary) hypertension (principal); E78.2 Mixed hyperlipidemia; E11.65 Type 2 diabetes mellitus with hyperglycemia
CPT/HCPCS: 36415; 80048; 80061; 83036; 83735; 84100; 84450; 84460

== ENCOUNTER → 2023-12-05 | Outpatient (CLI) | payer MEDICARE | END | disposition home or self-care (01) | LOC: LABWHC1 08:18 | PROVIDERS: ATTEND Nurse Practitioner Adult Health | DX: Z53.9 Procedure and treatment not carried out, unspecified reason (principal) ==

== ENCOUNTER → 2024-03-06 | Outpatient (CLI) | payer MEDICARE ==
[2024-03-06 10:24] LABS: Creatinine,Urine Random 117.5 mg/dL
[2024-03-06 12:59] LABS: Basophils # (A) 0.07 X 10*3/uL (0.00-0.10); Basophils % (A) 0.8 %; Eosinophils # (A) 0.17 X 10*3/uL (0.04-0.35); HCT 43.8 % (39.6-50.0); HGB 14.3 g/dL (13.0-17.0); Lymphocytes # (A) 1.79 X 10*3/uL (0.90-5.00); Lymphocytes % (A) 21.6 %; MCH 31.8 pg (27.0-32.0); MCHC 32.6 g/dL (32.0-37.0); MCV 97.3 FL (80.0-97.0); Mean Platelet Volume 10.3 FL (9.5-12.2); Monocytes # (A) 0.53 X 10*3/uL (0.20-1.00); Monocytes % (A) 6.4 %; NRBC Per 100 WBC 0 X 10*3/uL (0.00-0.01); Neutrophils % (A) 68.7 %; Platelet Count 177 X 10*3/uL (140-440); RDW 12.6 % (11.5-14.5)
[2024-03-06 13:25] LABS: Microalbumin Creatinine Ratio <10 mg/g Cr (0-30)
[2024-03-06 13:27] LABS: % Iron Saturation 17.73 (15.00-50.00); ALT 15 U/L (10-49); AST 18 U/L (14-35); Albumin 4.1 g/dL (3.8-4.9); Albumin/Globulin Ratio 2.16 Ratio (1.60-3.17); Alkaline Phosphatase 74 U/L (41-126); BUN/Creat Ratio 16.64 Ratio (12.00-20.00); Blood Urea Nitrogen 18.3 mg/dL (9.0-27.0); Calcium 9.3 mg/dL (8.7-10.3); Carbon Dioxide 24.2 mmol/L (21.6-31.8); Chloride 104 mmol/L (96-109); Chol/HDL Ratio 2.11 Ratio; Ferritin 41.8 ng/mL (22.0-322.0); Globulin 1.9 g/dL (1.6-3.3); Glucose 145 mg/dL (70-110); Iron 75 UG/DL (65-175); LDL Cholesterol,Calculated 23.4 mg/dL (0.0-131.0); Magnesium 1.4 mg/dL (1.5-2.4); Phosphorus 4.1 mg/dL (2.4-5.1); Potassium 4.8 mmol/L (3.5-5.5); Sodium 140 mmol/L (135-145); Total Bilirubin 0.6 mg/dL (0.3-1.2); Total Iron Binding Capacity 423 UG/DL (228-460)
== END | disposition home or self-care (01) ==
LOC: LABWHC1 07:54
PROVIDERS: ATTEND Internal Medicine Interventional Cardiology
DX: I12.9 Hypertensive chronic kidney disease with stage 1 through stage 4 chronic kidney disease, or unspecified chronic kidney disease (principal); E11.22 Type 2 diabetes mellitus with diabetic chronic kidney disease; E78.2 Mixed hyperlipidemia; E87.8 Other disorders of electrolyte and fluid balance, not elsewhere classified; N18.30 Chronic kidney disease, stage 3 unspecified; E11.65 Type 2 diabetes mellitus with hyperglycemia; R80.9 Proteinuria, unspecified
CPT/HCPCS: 36415; 80053; 80061; 82043; 82570; 82728; 83036; 83540; 83550; 83735; 84100; 84156; 85025

== ENCOUNTER 2024-09-19 14:37 | Inpatient (IN) | payer MEDICARE ==
--- NOTE | 2024-09-19 14:45 | ED ---
General Adult HPI - General Chief complaint: Urogenital Stated complaint: Urogenital issues Time Seen by Provider: 09/19/24 14:40 Source: patient, EMS Mode of arrival: EMS Limitations: no limitations - History of Present Illness Initial comments: Patient presents to the ED by ambulance for evaluation. Patient states that he has been having difficulty urinating for the past couple of days. Patient states that he has only been able to pass "dribbles". Patient states that his urine has been blood tinged in appearance. Patient, however, denies having any pain or discomfort. Patient denies fever or chills, headache, focal numbness/weakness/neuro deficit, chest pain or pressure, dyspnea, palpitations, dizziness, abdominal pain, back or flank pain, nausea or vomiting, diarrhea or constipation, bloody or melanotic stool, dysuria, penile or testicular pain, leg pain, or any other symptoms or complaints. - Related Data Home Medications Medication Instructions Recorded Confirmed Omeprazole [PriLOSEC] 20 mg PO AC-BRKFST 01/13/15 05/07/19 metFORMIN HCL [Glucophage] 500 mg PO BID 01/13/15 05/06/19 Tamsulosin [Flomax] 0.4 mg PO DAILY 04/26/16 05/07/19 Apixaban [Eliquis] 5 mg PO BID 05/04/19 05/06/19 amLODIPine [Norvasc] 5 mg PO BID 05/04/19 05/07/19 atenoloL [Tenormin] 50 mg PO DAILY 05/04/19 05/07/19 clindamycin HCL [Clindamycin HCl] 600 mg PO ONCE PRN 05/04/19 05/07/19 hydrALAZINE HCL 25 mg PO BID 05/04/19 05/07/19 lisinopriL [Zestril] 20 mg PO BID 05/04/19 05/07/19 Previous Rx's Medication Instructions Recorded Atorvastatin [Lipitor] 40 mg PO HS #90 tablet 05/07/19 Allergies Allergy/AdvReac Type Severity Reaction Status Date / Time Penicillins Allergy Rash/Hives,throat Verified 05/06/19 09:35 swelling Review of Systems ROS Statement: Those systems with pertinent positive or pertinent negative responses have been documented in the HPI. ROS Other: All systems not noted in ROS Statement are negative. Past Medical History Past Medical History: Diabetes Mellitus, GERD/Reflux, Hypertension, Ost eoarthritis (OA) Additional Past Medical History / Comment(s): varicose veins, using walker History of Any Multi-Drug Resistant Organisms: None Reported Past Surgical History: Joint Replacement, Tonsillectomy Additional Past Surgical History / Comment(s): RIGHT TOTAL KNEE, Past Anesthesia/Blood Transfusion Reactions: No Reported Reaction Past Psychological History: No Psychological Hx Reported Past Alcohol Use History: None Reported Past Drug Use History: None Reported - Past Family History Father Family Medical History: Cancer Sister(s) Family Medical History: Cancer Brother(s) Family Medical History: Cancer Daughter(s) Family Medical History: Cancer Mother Family Medical History: Cancer General Exam Limitations: no limitations General appearance: alert, in no apparent distress Head exam: Present: atraumatic Eye exam: Present: normal appearance ENT exam: Present: mucous membranes moist Respiratory exam: Present: normal lung sounds bilaterally. Absent: respiratory distress, wheezes, rales, rhonchi, stridor Cardiovascular Exam: Present: tachycardia, irregular rhythm, normal heart sounds, other (Normal radial pulses bilaterally) GI/Abdominal exam: Present: soft. Absent: distended, tenderness, guarding exam: Present: other (Blood-tinged urine is noted at urethral meatus). Absent: testicular tenderness, scrotal swelling Extremities exam: Absent: pedal edema Back exam: Absent: CVA tenderness (R), CVA tenderness (L) Neurological exam: Present: alert, oriented X3. Absent: motor sensory deficit Psychiatric exam: Present: normal affect Skin exam: Present: warm, dry, normal color Course Vital Signs 09/19/24 09/19/24 09/19/24 14:40 15:33 17:16 Temperature 98.7 F 98.2 F Pulse Rate 111 H 113 H 114 H Respiratory 18 20 20 Rate Blood Pressure 124/82 131/83 105/90 O2 Sat by Pulse 96 95 94 L Oximetry - Reevaluation(s) Reevaluation #1: 09/19/24 17:17 Case, H&P, test results and ED management thus far were discussed with Dr. Bustamante. He accepts hospital admission. He recommends urology and infectious disease consultations. He requests ordering a PSA level. He also requests keeping the Raines catheter in at this time. He has no further recommendations at this time. 09/19/24 17:31 Patient and daughter are aware the patient's test results and my discussion with Dr. Tomas Aguero as above. They both agree with hospital admission at this time. Patient denies development of any new symptoms while in the ED. EKG Findings - EKG Comments: EKG Findings:: ED physician interpretation (interpreted by me): Atrial fibrillation with RVR, ventricular rate of 107 bpm, single PVC versus aberrant complex, leftward axis, normal QRS duration, normal QT interval, incomplete right bundle branch block, no ST elevation Medical Decision Making - Medical Decision Making Was pt. sent in by a medical professional or institution (, PA, HAZMAT TANKER DRIVER, urgent care, hospital, or alf...) When possible be specific @ -No Did you speak to anyone other than the patient for history (EMS, parent, family, police, friend...)? What history was obtained from this source @ -No Did you review nursing and triage notes (agree or disagree)? Why? @ -I reviewed and agree with nursing and triage notes Were old charts reviewed (outside hosp., previous admission, EMS record, old EKG, old radiological studies, urgent care reports/EKG's, alf records)? Report findings @ -No old charts were reviewed Differential Diagnosis (chest pain, altered mental status, abdominal pain women, abdominal pain men, vaginal bleeding, weakness, fever, dyspnea, syncope, headache, dizziness, GI bleed, back pain, seizure, CVA, palpatations, mental health, musculoskeletal)? @ -Urinary retention, enlarged prostate, UTI, pyelonephritis, prostatitis, sepsis, hematuria, medication reaction, dehydration, renal failure, obstruction, coagulopathy, dysrhythmia, atrial fibrillation, this is not meant to be a complete list. EKG interpreted by me (3pts min.). @ -As above X-rays interpreted by me (1pt min.). @ -None done CT interpreted by me (1pt min.). @ -CT abdomen/pelvis with IV contrast demonstrates a left lung base density, b ut no other acute abnormality. U/S interpreted by me (1pt. min.). @ -None done What testing was considered but not performed or refused? (CT, X-rays, U/S, labs)? Why? @ -None What meds were considered but not given or refused? Why? @ -None Did you discuss the management of the patient with other professionals (professionals i.e. DrMarcelo, PA, HAZMAT TANKER DRIVER, lab, RT, psych nurse, social worker psychiatric, valve lapper, teacher, purchasing officer, child support case officer)? Give summary @ -As above. Was smoking cessation discussed for >3mins.? @ -No Was critical care preformed (if so, how long)? @ -Yes, 35 minutes. Were there social determinants of health that impacted care today? How? (Homelessness, low income, unemployed, alcoholism, drug addiction, transportation, low edu. Level, literacy, decrease access to med. care, correction, rehab)? @ -No Was there de-escalation of care discussed even if they declined (Discuss DNR or withdrawal of care, Hospice)? DNR status @ -No What co-morbidities impacted this encounter? (DM, HTN, Smoking, COPD, CAD, Cancer, CVA, ARF, Chemo, Hep., AIDS, mental health diagnosis, sleep apnea, morbid obesity)? @ -None Was patient admitted / discharged? Hospital course, mention meds given and route, prescriptions, significant lab abnormalities, going to OR and other pertinent info. @ -A bladder scan was performed on patient's arrival to the ED, but did not demonstrate much urine in the patient's bladder. Still, given the patient's report of inability to urinate, a Raines catheter was placed, and there was not very much urine output. Patient's UA demonstrates red cells and white cells. Patient's WBC count is elevated at 21,000. Patient's CT abdomen/pelvis does not demonstrate any findings explain the patient's symptoms. Given these findings, I suspect that the patient's symptoms may be due to a UTI, and I suspect that the patient is septic given his tachycardia and elevated white cell count. Will admit the patient to the hospital for further evaluation and IV antibiotic therapy. Dr. Bustamante has accepted hospital admission. Patient and daughter agree with this plan. Undiagnosed new problem with uncertain prognosis? @ -No Drug Therapy requiring intensive monitoring for toxicity (Heparin, Nitro, Insulin, Cardizem)? @ -No Were any procedures done? @ -No Diagnosis/symptom? @ -UTI with sepsis Acute, or Chronic, or Acute on Chronic? @ -Default Uncomplicated (without systemic symptoms) or Complicated (systemic symptoms)? @ -Default Side effects of treatment? @ -No Exacerbation, Progression, or Severe Exacerbation? @ -No Poses a threat to life or bodily function? How? (Chest pain, [place], AR, pneumonia, PE, COPD, DKA, ARF, appy, cholecystitis, CVA, Diverticulitis, Homicidal, Suicidal, threat to staff... and all critical care pts) @ -Yes, possibly. Diagnosis/symptom? @ -Atrial fibrillation with RVR Acute, or Chronic, or Acute on Chronic? @ -Default Uncomplicated (without systemic symptoms) or Complicated (systemic symptoms)? @ -Default Side effects of treatment? @ -None Exacerbation, Progression, or Severe Exacerbation] @ -No Poses a threat to life or bodily function? @ -No - Lab Data Result diagrams: 09/19/24 15:01 09/19/24 15:01 Lab Results 09/19/24 09/19/24 09/19/24 Range/Units 14:41 15:01 15:01 WBC 21.19 H (4.50-10.00) 10*3/uL RBC 4.37 L (4.40-5.60) 10*6/uL Hgb 14.1 (13.0-17.0) g/dL Hct 41.2 (39.6-50.0) % MCV 94.3 (80.0-97.0) fL MCH 32.3 H (27.0-32.0) pg MCHC 34.2 (32.0-37.0) g/dL Plt Count 154 (140-440) 10*3/uL MPV 9.9 (9.5-12.2) fL Immature Gran % (Auto) 0.5 % Neutrophils % 84.6 % Lymphocytes % 6.9 % Monocytes % 7.7 % Eosinophils % 0.0 % Basophils % 0.3 % Immature Gran # 0.11 H (0.00-0.04) 10*3/uL Neutrophils # 17.91 H (1.80-7.70) 10*3/uL Lymphocytes # 1.46 (0.90-5.00) 10*3/uL Monocytes # 1.64 H (0.20-1.00) 10*3/uL Eosinophils # 0.01 L (0.04-0.35) 10*3/uL Basophils # 0.06 (0.00-0.10) 10*3/uL PT (10.0-12.5) sec INR (<1.2) APTT (22.0-30.0) sec Sodium 133 L (137-145) mmol/L Potassium 5.3 H (3.5-5.1) mmol/L Chloride 99 (98-107) mmol/L Carbon Dioxide 21 L (22-30) mmol/L Anion Gap 13 mmol/L BUN 20 (9-20) mg/dL Creatinine 1.11 (0.66-1.25) mg/dL Est GFR (CKD-EPI)AfAm 73 (>60 ml/min/1.73 sqM) Est GFR (CKD-EPI)NonAf 63 (>60 ml/min/1.73 sqM) Glucose 162 H (74-99) mg/dL Calcium 9.5 (8.4-10.2) mg/dL Total Bilirubin 1.5 H (0.2-1.3) mg/dL AST 22 (17-59) U/L ALT 16 (4-49) U/L Alkaline Phosphatase 74 (38-126) U/L Total Protein 6.3 (6.3-8.2) g/dL Albumin 4.0 (3.5-5.0) g/dL Urine Color Red Urine Appearance Bloody (Clear) Urine RBC >182 H (0-5) /hpf Urine WBC >182 H (0-5) /hpf /12/06 Range/Units 15:01 WBC (4.50-10.00) 10*3/uL RBC (4.40-5.60) 10*6/uL Hgb (13.0-17.0) g/dL Hct (39.6-50.0) % MCV (80.0-97.0) fL MCH (27.0-32.0) pg MCHC (32.0-37.0) g/dL Plt Count (140-440) 10*3/uL MPV (9.5-12.2) fL Immature Gran % (Auto) % Neutrophils % % Lymphocytes % % Monocytes % % Eosinophils % % Basophils % % Immature Gran # (0.00-0.04) 10*3/uL Neutrophils # (1.80-7.70) 10*3/uL Lymphocytes # (0.90-5.00) 10*3/uL Monocytes # (0.20-1.00) 10*3/uL Eosinophils # (0.04-0.35) 10*3/uL Basophils # (0.00-0.10) 10*3/uL PT 14.3 H (10.0-12.5) sec INR 1.4 H (<1.2) APTT 27.6 (22.0-30.0) sec Sodium (137-145) mmol/L Potassium (3.5-5.1) mmol/L Chloride (98-107) mmol/L Carbon Dioxide (22-30) mmol/L Anion Gap mmol/L BUN (9-20) mg/dL Creatinine (0.66-1.25) mg/dL Est GFR (CKD-EPI)AfAm (>60 ml/min/1.73 sqM) Est GFR (CKD-EPI)NonAf (>60 ml/min/1.73 sqM) Glucose (74-99) mg/dL Calcium (8.4-10.2) mg/dL Total Bilirubin (0.2-1.3) mg/dL AST (17-59) U/L ALT (4-49) U/L Alkaline Phosphatase (38-126) U/L Total Protein (6.3-8.2) g/dL Albumin (3.5-5.0) g/dL Urine Color Urine Appearance (Clear) Urine RBC (0-5) /hpf Urine WBC (0-5) /hpf - Radiology Data CT abdomen/pelvis with IV contrast: 1. No acute intra-abdominal/pelvic process. 2. Raines catheter seen within a decompressed urinary bladder. 3. [place] density is seen within the left lung base which appears to have an associated spiculated component. In the absence of prior imaging for reference this finding is difficult to characterize and may represent atelectatic changes with scarring however underlying neoplasm cannot be entirely excluded. Recommend short-term CT follow-up chest in 3 months to assess for any interval changes if this finding is unknown and not present on any other recent prior outside imaging. Critical Care Time Critical Care Time: Yes Total Critical Care Time: 35 Disposition Clinical Impression: Atrial fibrillation, UTI (urinary tract infection), Sepsis Disposition: ADMITTED IP TO THIS HOSP Condition: Stable Is patient prescribed a controlled substance at d/c from ED?: No Referrals: Odilon Bustamante MD [Primary Care Provider] - 1-2 days Time of Disposition: 17:26
[2024-09-19 15:06] LABS: Basophils # (A) 0.06 10*3/uL (0.00-0.10); Basophils % (A) 0.3 %; Eosinophils # (A) 0.01 10*3/uL (0.04-0.35); HCT 41.2 % (39.6-50.0); HGB 14.1 g/dL (13.0-17.0); Lymphocytes # (A) 1.46 10*3/uL (0.90-5.00); Lymphocytes % (A) 6.9 %; MCH 32.3 pg (27.0-32.0); MCHC 34.2 g/dL (32.0-37.0); MCV 94.3 fL (80.0-97.0); Mean Platelet Volume 9.9 fL (9.5-12.2); Monocytes # (A) 1.64 10*3/uL (0.20-1.00); Monocytes % (A) 7.7 %; Neutrophils # (A) 17.91 10*3/uL (1.80-7.70); Neutrophils % (A) 84.6 %; Platelet Count 154 10*3/uL (140-440); RBC 4.37 10*6/uL (4.40-5.60); RDW 13.2 % (11.5-14.5); WBC 21.19 10*3/uL (4.50-10.00)
[2024-09-19 15:16] LABS: INR 1.4 (<1.2); Partial Thromboplastin Time 27.6 sec (22.0-30.0); Prothrombin Time 14.3 sec (10.0-12.5)
[2024-09-19 15:26] LABS: ALT 16 U/L (4-49); AST 22 U/L (17-59); African American GFR (CKD) 73 (>60 ml/min/1.73 sqM); Alkaline Phosphatase 74 U/L (38-126); Anion Gap 13 mmol/L; Blood Urea Nitrogen 20 mg/dL (9-20); Calcium 9.5 mg/dL (8.4-10.2); Carbon Dioxide 21 mmol/L (22-30); Chloride 99 mmol/L (98-107); Glucose 162 mg/dL (74-99); Non-African American GFR(CKD) 63 (>60 ml/min/1.73 sqM); Potassium 5.3 mmol/L (3.5-5.1); Sodium 133 mmol/L (137-145); Total Bilirubin 1.5 mg/dL (0.2-1.3); Total Protein 6.3 g/dL (6.3-8.2)
[2024-09-19] MEDS: SODIUM CHLORIDE 0.9% 1,000 ML IV ONE (15:31)
--- NOTE | 2024-09-19 16:24 | CT ---
INDICATION: Patient age:Male; 79 years old; Reason for study: urinary symptoms, hematuria; PHH. COMPARISON: . TECHNIQUE: Standard CT of the . Coronal and sagittal reformats were performed. One or more CT dose reduction strategies were utilized during this examination. Total DLP administered was mGycm. Total number of CT examination in the past 12 months prior to today: FINDINGS: LOWER CHEST: There is an oblong density seen within the left lung base measuring 2.9 cm with a spicul ated component measuring 1.8 cm. Moderate coronary artery atherosclerosis ABDOMEN LIVER: Unremarkable. GALLBLADDER AND BILE DUCTS: The gallbladder is nondistended with no gross abnormality. No biliary jean griselda dilatation. PANCREAS: Unremarkable. SPLEEN: Unremarkable. ADRENAL GLANDS: Unremarkable. KIDNEYS AND URETERS: No evidence of hydronephrosis or renal calculus. The ureters are unremarkable. PELVIS URINARY BLADDER: Decompressed with Raines catheter in place. REPRODUCTIVE: Coarse calcifications of the prostate gland are identified. Prostate is not enlarged. ABDOMEN & PELVIS STOMACH AND BOWEL: Stomach is grossly unremarkable. Small bowel is of normal caliber. Scattered colon ic diverticula are seen without associated fat stranding. No evidence of bowel obstruction. PERITONEUM: No evidence of pneumoperitoneum or free fluid. VASCULATURE: No aortic aneurysmal changes. MUSCULOSKELETAL: No acute osseous abnormalities LYMPH NODES: Unremarkable. SOFT TISSUE/ABDOMINAL WALL: Tiny fat filled umbilical hernia IMPRESSION: 1. No acute intra-abdominal/pelvic process. 2. Raines catheter is seen within a decompressed urinary bladder. 3. [place] density is seen within the left lung base which appears to have an associated spiculated co mponent. In the absence of prior imaging for reference this finding is difficult to characterize and may represent atelectatic changes with scarring however underlying neoplasm cannot be entirely exclud ed. Recommend short-term CT chest follow-up in 3 months to assess for any interval changes if this fi nding is unknown and not present on any other recent prior outside imaging. [facility], , 09/19/2024 4:22 PM
[2024-09-19 16:41] LABS: Appearance,Urine Bloody (Clear); RBC,Urine >182 /hpf (0-5); WBC,Urine >182 /hpf (0-5)
[2024-09-19 16:42] LABS: Color,Urine Red
[2024-09-19] MEDS ORDERED: NALOXONE 0.4 MG/ML 1 ML VIAL IV PRN (17:26)
[2024-09-19] MEDS: ONDANSETRON 4 MG/2 ML VIAL IVP STA (17:27)
[2024-09-19] MEDS: LEVOFLOXACIN 750MG-D5W PMX 750 MG in DEXTROSE/WATER 1 150ML.BAG IVPB STA (17:28)
[2024-09-19] MEDS: SODIUM CHLORIDE 0.9% 1,000 ML IV SCH (18:00)
[2024-09-19] MEDS: amLODIPine 5 MG TAB PO SCH (20:19)
[2024-09-19] MEDS: DONEPEZIL 5 MG TAB PO SCH (20:19)
[2024-09-19] MEDS: metFORMIN 500 MG TAB PO SCH (20:19)
--- NOTE | 2024-09-19 20:53 | P.HPIM ---
History of Present Illness H&P Date: 09/19/24 Chief Complaint: Dysuria with hematuria and inability to urinate for urination 2 days prior History and physical Dictation by Dr. Bustamante Date of service 09/19/2024 Location in the emergency department room #3. Chief complaint: Patient brought by ambulance to the ER at [facility] where he was seen evaluated by the ER physician and the order for him CT scan with contrast. Chief complaint was that he has been complaining of dysuria and hematuria and inability to urinate with the rippling and feeling weak, at that time his daughter advised and the called the ambulance and brought him to the ER where he received the Raines catheter found to be bloody as he stated he was at home his urination with blood before catheter placed. History of present illness: 79 years old white male lives with his and in the last 2 days he become more aware of dysuria and hematuria and feeling weak tired fatigued meanwhile he did not pass any stone and he was dribbling which was not his usual. Patient also has been with history of enlarged prostate and normal PSA in the past. In the ER they did CT scan of the abdomen and pelvis with contrast and found t hat he had prostatic calcification. There is no PSA was done at the time and the placed Raines catheter with the hematuria and hesitancy of urination and dribbling. Also found that he had urinary tract infection with the high level of WBC, as well has leukocytosis with WBC 25,000 and suspicious of sepsis. Also the did lactic acid and was possibly positive for lactic acidosis and this started him on hydration in the ER. With the 75 cc an hour of normal saline with the sodium was 133 Patient has chronic history of atrial fibrillation and has been taking care of by Dr. Liz clinical quality assurance associate. And his last echo has been last year and was 50% ejection fraction last year before was 45% ejection fraction with the atrial fibrillation with not well-controlled ventricular response. Allergy penicillin Past medical history he had history of chronic atrial fibrillation Penicillin allergy COVID was infected in April 24, 2021 and treated. History of hypertension Colonoscopy [address] Wilson Hyperlipidemia Intermittent forgetfulness with the cognitive function impairment. GERD disease. History of diabetes mellitus has been fairly controlled. And his last echocardiogram in 03/18/2024 indicating ejection fraction of 45-50%. Social history does not smoke never does not drink alcohol, does not use marijuana, does not use any street drugs. Penicillin allergy caused him rash and sore throat is closed. At home his vital sign was stable with average blood pressure 120/82 with a heart rate 96, irregular. He has been on medication with tamsulosin for enlarged prostate. Surgical history he has bilateral knee arthroplasty Patient has been seen for follow-up on diabetic eye by Dr. Ortega and no evidence of diabetic retinopathy. Patient mild obesity his BMI 31.5. Family history he had daughter who has been taking care of him and her mom as well Patient had history of pulmonary hypertension. And history of chronic kidney disease stage II. R0S: Psychiatry negative no depression or anxiety Neurological mild cognitive function impairment. Cardiovascular: No complaint of chest pain or palpitation however he had chronic atrial fibrillation Pulmonary no shortness of breath, no history of smoking in the past, his parents was smokers father and the mother. GI: No diarrhea or constipation no abdominal pain. Urogenital: Main concern of his problem at this time with the severe discomfort and dribbling and hesitancy as well as hematuria with the blood and feeling that he could not pass his urine with generalized weakness. Endocrine diabetes mellitus which has been well-controlled at home. Vitamin D insufficiency. Review of the rest of the [place] no added abnormalities On the physical examination: Patient seen in the room 3 in the emergency department and his daughter at bedside who is a caregiver. Patient able to state his problem and the timing for it with the 2 days started before the presentation in the emergency room by ambulance and they placed a Raines catheter however he has complaining of being urine with blood by the regularize vision and in the Raines catheter as well as the back his blood. And feeling uncomfortable with a little shaking when you have the urine passing through. The head was normocephalic atraumatic, pupil was equal reactive, oropharynx natural teeth with normal swallowing Normal hearing, no nasal discharge Neck was supple no JVD no thyromegaly no lymphadenopathy trachea midline Chest clear to auscultation and percussion however the CT scan indicating spicular shadow on the left lower bases, will obtain a chest x-ray for clarifi cation Heart: PMI in the fifth intercostal space outside midclavicular line with irregular irregularities with the chronic atrial fibrillation and on Eliquis per Dr. Liz clinical quality assurance associate Abdomen: Deep palpation and light palpation with no tenderness no palpable masses no umbilical hernia or groin hernia minimal discomfort on the suprapubic area, Raines catheter in place with the bloody urine Extremities: No edema positive pulses bilateral and symmetrical dorsalis pedis and posterior tibial and popliteal with good perfusion. Psychiatry stable Neurologically stable no lateralizing sign no confusion or agitation. Assessment: 1. High leukocytosis, infected urine, sepsis, hematuria. 2. Chronic atrial fibrillation with RVR mild 3. Hyperlipidemia 4. History of hypertension currently controlled. 5. Advanced prostatic enlargement with calcification by the CT scan 6. Need evaluation by urology with the questionable malignancy or bleeding from the uterus 7. Association of Eliquis with hematuria highly considered. 8. Mild elevation of serum potassium possibility associated with hemolysis, lisinopril, Aldactone. 9. Lactic acidosis. Plan and discussion 1. Will consult urology for evaluation and treatment 2. Will consult infectious disease 3. Hold lisinopril temporarily 4. Hold Eliquis and start heparin subcu every 8 hour. 5. Will obtain stool for Hemoccult to clarify if he has also bleeding in the GI tract. 6. Will keep the Raines catheter until urology evaluate with the presence of hematuria 7. Patient received a dose of Levaquin in the ER and he will be seen tomorrow with the infectious disease for adjusting his antibiotic 8. Urine culture and sensitivity and blood culture has been done in the ER. 9. Patient will be on gambling monitor on the fourth floor. Further treatment according the patient condition and we obtained lab tomorrow as well as procalcitonin and we will order a chest x-ray PA and lateral with the CT scan of the abdomen stated that there is a spiculated shadow in the left lower lung base however patient never smoked in the past. Will increase the IV fluid to 100 cc an hour until lactic acid recovered specially with the patient has ejection fraction 45% we will not be able to use the standard 130 to 125 cc an hour. Past Medical History Past Medical History: Diabetes Mellitus, GERD/Reflux, Hypertension, Osteoarthritis (OA) Additional Past Medical History / Comment(s): varicose veins, using walker History of Any Multi-Drug Resistant Organisms: None Reported Past Surgical History: Joint Replacement, Tonsillectomy Additional Past Surgical History / Comment(s): RIGHT TOTAL KNEE, Past Anesthesia/Blood Transfusion Reactions: No Reported Reaction Past Psychological History: No Psychological Hx Reported Past Alcohol Use History: None Reported Past Drug Use History: None Reported - Past Family History Father Family Medical History: Cancer Sister(s) Family Medical History: Cancer Brother(s) Family Medical History: Cancer Daughter(s) Family Medical History: Cancer Mother Family Medical History: Cancer Medications and Allergies Home Medications Medication Instructions Recorded Confirmed Type metFORMIN HCL [Glucophage] 500 mg PO BID 01/13/15 09/19/24 History Tamsulosin [Flomax] 0.4 mg PO DAILY 04/26/16 09/19/24 History Apixaban [Eliquis] 5 mg PO BID 05/04/19 09/19/24 History amLODIPine [Norvasc] 5 mg PO BID@1300,2100 05/04/19 09/19/24 History atenoloL [Tenormin] 50 mg PO DAILY 05/04/19 09/19/24 History Atorvastatin [Lipitor] 20 mg PO DAILY 09/19/24 09/19/24 History Cholecalciferol (Vitamin D3) 50 mcg PO DAILY 09/19/24 09/19/24 History [Vitamin D3 (50 Mcg = 2000 Iu)] Donepezil [Aricept] 5 mg PO HS 09/19/24 09/19/24 History Ferrous Sulfate [Feosol] 325 mg PO DAILY 09/19/24 09/19/24 History Fexofenadine HCl [Alma Allergy] 180 mg PO DAILY 09/19/24 09/19/24 History Magnesium Oxide [Mag-Ox] 400 mg PO DAILY 09/19/24 09/19/24 History Spironolactone [Aldactone] 12.5 mg PO DAILY 09/19/24 09/19/24 History lisinopriL [Zestril] 10 mg PO DAILY 09/19/24 09/19/24 History Allergies Allergy/AdvReac Type Severity Reaction Status Date / Time Penicillins Allergy Rash/Hives,throat Verified 09/19/24 18:25 swelling Physical Exam Vitals: Vital Signs Temp Pulse Resp BP Pulse Ox 09/19/24 20:00 116 H 20 111/79 94 L 09/19/24 18:04 121 H 22 113/81 91 L 09/19/24 17:43 98.2 F 110 H 20 105/90 94 L 09/19/24 17:16 98.2 F 114 H 20 105/90 94 L 09/19/24 15:33 113 H 20 131/83 95 09/19/24 14:40 98.7 F 111 H 18 124/82 96 Intake and Output 09/19/24 09/19/24 09/19/24 06:59 14:59 22:59 Other: Weight 93.894 kg Results CBC & Chem 7: 09/19/24 15:01 09/19/24 15:01 Labs: Abnormal Lab Results - Last 24 Hours (Table) 09/19/24 09/19/24 09/19/24 Range/Units 14:41 15:01 15:01 WBC 21.19 H (4.50-10.00) 10*3/uL RBC 4.37 L (4.40-5.60) 10*6/uL MCH 32.3 H (27.0-32.0) pg Immature Gran # 0.11 H (0.00-0.04) 10*3/uL Neutrophils # 17.91 H (1.80-7.70) 10*3/uL Monocytes # 1.64 H (0.20-1.00) 10*3/uL Eosinophils # 0.01 L (0.04-0.35) 10*3/uL PT (10.0-12.5) sec INR (<1.2) Sodium 133 L (137-145) mmol/L Potassium 5.3 H (3.5-5.1) mmol/L Carbon Dioxide 21 L (22-30) mmol/L Glucose 162 H (74-99) mg/dL Plasma Lactic Acid Jonny (0.7-2.0) mmol/L Total Bilirubin 1.5 H (0.2-1.3) mg/dL Urine RBC >182 H (0-5) /hpf Urine WBC >182 H (0-5) /hpf 09/19/24 09/19/24 Range/Units 15:01 17:25 WBC (4.50-10.00) 10*3/uL RBC (4.40-5.60) 10*6/uL MCH (27.0-32.0) pg Immature Gran # (0.00-0.04) 10*3/uL Neutrophils # (1.80-7.70) 10*3/uL Monocytes # (0.20-1.00) 10*3/uL Eosinophils # (0.04-0.35) 10*3/uL PT 14.3 H (10.0-12.5) sec INR 1.4 H (<1.2) Sodium (137-145) mmol/L Potassium (3.5-5.1) mmol/L Carbon Dioxide (22-30) mmol/L Glucose (74-99) mg/dL Plasma Lactic Acid Jonny 2.3 H* (0.7-2.0) mmol/L Total Bilirubin (0.2-1.3) mg/dL Urine RBC (0-5) /hpf Urine WBC (0-5) /hpf
[2024-09-19] MEDS ORDERED: APIXABAN 5 MG TAB PO SCH (21:00)
--- NOTE | 2024-09-19 22:06 | XR ---
EXAMINATION TYPE: XR chest 2V DATE OF EXAM: 09/19/2024 8:40 PM COMPARISON: 10/09/2022 chest x-ray, CT 09/19/2024 CLINICAL INDICATION: Male, 79 years old with history of Left lower lobe spicular shadow, TECHNIQUE: XR chest 2V view(s) obtained. FINDINGS: The heart size is normal. The pulmonary vasculature is normal. There is elevation of the right foramen. No suspicious lung infiltrates evident. No suspicious lung f indings. Please see CT abdomen and pelvis for suspicious lung base findings IMPRESSION: 1. No acute pulmonary process by chest x-ray. 2. Lung bases finding management should be based on the CT findings and clinical information. [facility], , 09/19/2024 10:04 PM
[2024-09-20] MEDS: SODIUM CHLORIDE 0.9% 1,000 ML IV SCH (01:48)
[2024-09-20] MEDS: HEPARIN SODIUM,PORCINE 5,000 UNIT/ML 1 ML VIAL SQ SCH (02:04)
[2024-09-20 07:31] LABS: ALT 13 U/L (4-49); AST 14 U/L (17-59); African American GFR (CKD) 69 (>60 ml/min/1.73 sqM); Albumin 3.2 g/dL (3.5-5.0); Albumin/Globulin Ratio 1.5; Alkaline Phosphatase 57 U/L (38-126); Anion Gap 9 mmol/L; Blood Urea Nitrogen 18 mg/dL (9-20); Calcium 8.8 mg/dL (8.4-10.2); Carbon Dioxide 25 mmol/L (22-30); Chloride 102 mmol/L (98-107); Globulin 2.1 g/dL; Glucose 147 mg/dL (74-99); Magnesium 1.4 mg/dL (1.6-2.3); Non-African American GFR(CKD) 59 (>60 ml/min/1.73 sqM); Potassium 4.8 mmol/L (3.5-5.1); Sodium 136 mmol/L (137-145); Total Bilirubin 1.2 mg/dL (0.2-1.3); Total Protein 5.3 g/dL (6.3-8.2)
--- NOTE | 2024-09-20 08:01 | US ---
EXAMINATION TYPE: US kidneys/renal and bladder DATE OF EXAM: 09/20/2024 COMPARISON: NONE CLINICAL INDICATION: Male, 79 years old with history of hematuria , sepsis ,uti ,pyelonephritis; UTI. Unable to void TECHNIQUE: Grayscale imaging of the bilateral kidneys and urinary bladder: FINDINGS: EXAM MEASUREMENTS: Right Kidney: 8.0x4.9x4.8 cm Left Kidney: 9.5x4.7x4.8 cm Right Kidney: No hydronephrosis or masses seen, perinephric sweat sign Left Kidney: No hydronephrosis or masses seen perinephric sweat sign Bladder: Raines cath in place exam limited by habitus IMPRESSION: 1. Bilateral perinephric sweat sign can be associated with renal failure. [facility], , 09/20/2024 7:59 AM
--- NOTE | 2024-09-20 08:29 | P.GSCN ---
History of Present Illness Consult date: 09/20/24 History of present illness: 79 yo male admitted to the hospital with a uti. We were asked to see because of dysuria and hematuria.. THE patient was not in retention. A catheter was placed with minimal urine. HIs urine looked infected. His ct scan didnot show any urological abnormalities.He does have pre uti symptoms of outlet obstruction. He has had incontinence. He has been on flomax. He has not seen a urologist. He has an indwelling cath. His pvr was 10 ml Review of Systems All systems: negative - Constitutional Denies fever, Denies weight loss - EENT Eyes: denies blurred vision Ears, nose, mouth and throat: Denies dysphagia - Cardiovascular Denies chest pain, Denies shortness of breath - Respiratory Denies cough, Denies 7 - Gastrointestinal Reports as per HPI - Genitourinary Denies dysuria, Denies hematuria - Integumentary Denies rash, Denies unusual bruising - Neurological Denies headaches, Denies syncope - Hematologic/Lymphatic Denies easy bleeding, Denies easy bruising Past Medical History Past Medical History: Atrial Fibrillation, Diabetes Mellitus, GERD/Reflux, Hypertension, Osteoarthritis (OA) Additional Past Medical History / Comment(s): varicose veins, using walker History of Any Multi-Drug Resistant Organisms: None Reported Past Surgical History: Joint Replacement, Tonsillectomy Additional Past Surgical History / Comment(s): RIGHT TOTAL KNEE, Past Anesthesia/Blood Transfusion Reactions: No Reported Reaction Past Psychological History: No Psychological Hx Reported Past Alcohol Use History: None Reported Past Drug Use History: None Reported - Past Family History Father Family Medical History: Cancer Sister(s) Family Medical History: Cancer Brother(s) Family Medical History: Cancer Daughter(s) Family Medical History: Cancer Mother Family Medical History: Cancer Medications and Allergies Home Medications Medication Instructions Recorded Confirmed Type metFORMIN HCL [Glucophage] 500 mg PO BID 01/13/15 09/19/24 History Tamsulosin [Flomax] 0.4 mg PO DAILY 04/26/16 09/19/24 History Apixaban [Eliquis] 5 mg PO BID 05/04/19 09/19/24 History amLODIPine [Norvasc] 5 mg PO BID@1300,2100 05/04/19 09/19/24 History atenoloL [Tenormin] 50 mg PO DAILY 05/04/19 09/19/24 History Atorvastatin [Lipitor] 20 mg PO DAILY 09/19/24 09/19/24 History Cholecalciferol (Vitamin D3) 50 mcg PO DAILY 09/19/24 09/19/24 History [Vitamin D3 (50 Mcg = 2000 Iu)] Donepezil [Aricept] 5 mg PO HS 09/19/24 09/19/24 History Ferrous Sulfate [Feosol] 325 mg PO DAILY 09/19/24 09/19/24 History Fexofenadine HCl [Alma Allergy] 180 mg PO DAILY 09/19/24 09/19/24 History Magnesium Oxide [Mag-Ox] 400 mg PO DAILY 09/19/24 09/19/24 History Spironolactone [Aldactone] 12.5 mg PO DAILY 09/19/24 09/19/24 History lisinopriL [Zestril] 10 mg PO DAILY 09/19/24 09/19/24 History Allergies Allergy/AdvReac Type Severity Reaction Status Date / Time Penicillins Allergy Rash/Hives,throat Verified 09/19/24 18:25 swelling Surgical - Exam Vital Signs Temp Pulse Resp BP Pulse Ox 98.7 F 111 H 18 124/82 96 09/19/24 14:40 09/19/24 14:40 09/19/24 14:40 09/19/24 14:40 09/19/24 14:40 - General well developed, well nourished, no distress - Eyes normal ocular movement, no icteric - ENT no hearing loss, no congestion - Neck no masses, trachea midline - Respiratory normal respiratory effort, clear to auscultation - Abdomen Abdomen: soft, non tender, no guarding, no rigid, no rebound - Integumentary no rash, no abnormal pigmentation - Neurologic no disoriented, no combative - Psychiatric oriented to time, oriented to person, oriented to place, speech is normal, memory intact Results - Labs 09/19/24 15:01 09/20/24 06:21 Abnormal Lab Results - Last 24 Hours (Table) 09/19/24 09/19/24 09/19/24 Range/Units 14:41 15:01 15:01 WBC 21.19 H (4.50-10.00) 10*3/uL RBC 4.37 L (4.40-5.60) 10*6/uL MCH 32.3 H (27.0-32.0) pg Immature Gran # 0.11 H (0.00-0.04) 10*3/uL Neutrophils # 17.91 H (1.80-7.70) 10*3/uL Monocytes # 1.64 H (0.20-1.00) 10*3/uL Eosinophils # 0.01 L (0.04-0.35) 10*3/uL PT (10.0-12.5) sec INR (<1.2) Sodium 133 L (137-145) mmol/L Potassium 5.3 H (3.5-5.1) mmol/L Carbon Dioxide 21 L (22-30) mmol/L Glucose 162 H (74-99) mg/dL Plasma Lactic Acid Jonny (0.7-2.0) mmol/L Total Bilirubin 1.5 H (0.2-1.3) mg/dL Urine RBC >182 H (0-5) /hpf Urine WBC >182 H (0-5) /hpf 09/19/24 09/19/24 09/19/24 Range/Units 15:01 17:25 21:23 WBC (4.50-10.00) 10*3/uL RBC (4.40-5.60) 10*6/uL MCH (27.0-32.0) pg Immature Gran # (0.00-0.04) 10*3/uL Neutrophils # (1.80-7.70) 10*3/uL Monocytes # (0.20-1.00) 10*3/uL Eosinophils # (0.04-0.35) 10*3/uL PT 14.3 H (10.0-12.5) sec INR 1.4 H (<1.2) Sodium (137-145) mmol/L Potassium (3.5-5.1) mmol/L Carbon Dioxide (22-30) mmol/L Glucose (74-99) mg/dL Plasma Lactic Acid Jonny 2.3 H* 2.3 H* (0.7-2.0) mmol/L Total Bilirubin (0.2-1.3) mg/dL Urine RBC (0-5) /hpf Urine WBC (0-5) /hpf Diabetes panel 09/19/24 Range/Units 15:01 Sodium 133 L (137-145) mmol/L Potassium 5.3 H (3.5-5.1) mmol/L Chloride 99 (98-107) mmol/L Carbon Dioxide 21 L (22-30) mmol/L BUN 20 (9-20) mg/dL Creatinine 1.11 (0.66-1.25) mg/dL Glucose 162 H (74-99) mg/dL Calcium 9.5 (8.4-10.2) mg/dL AST 22 (17-59) U/L ALT 16 (4-49) U/L Alkaline Phosphatase 74 (38-126) U/L Total Protein 6.3 (6.3-8.2) g/dL Albumin 4.0 (3.5-5.0) g/dL Calcium panel 09/19/24 Range/Units 15:01 Calcium 9.5 (8.4-10.2) mg/dL Albumin 4.0 (3.5-5.0) g/dL Pituitary panel 09/19/24 Range/Units 15:01 Sodium 133 L (137-145) mmol/L Potassium 5.3 H (3.5-5.1) mmol/L Chloride 99 (98-107) mmol/L Carbon Dioxide 21 L (22-30) mmol/L BUN 20 (9-20) mg/dL Creatinine 1.11 (0.66-1.25) mg/dL Glucose 162 H (74-99) mg/dL Calcium 9.5 (8.4-10.2) mg/dL Adrenal panel 09/19/24 Range/Units 15:01 Sodium 133 L (137-145) mmol/L Potassium 5.3 H (3.5-5.1) mmol/L Chloride 99 (98-107) mmol/L Carbon Dioxide 21 L (22-30) mmol/L BUN 20 (9-20) mg/dL Creatinine 1.11 (0.66-1.25) mg/dL Glucose 162 H (74-99) mg/dL Calcium 9.5 (8.4-10.2) mg/dL Total Bilirubin 1.5 H (0.2-1.3) mg/dL AST 22 (17-59) U/L ALT 16 (4-49) U/L Alkaline Phosphatase 74 (38-126) U/L Total Protein 6.3 (6.3-8.2) g/dL Albumin 4.0 (3.5-5.0) g/dL - Imaging CT scan - abdomen: report reviewed, image reviewed CT scan - pelvis: report reviewed, image reviewed Assessment and Plan Assessment: Impression: uti with sepsis. Hematuria secondary to uti Plan: urine cultures and antibiotics. No urologic intervention will be requi red during this hospitalization.
[2024-09-20 08:47] LABS: Glucose,Whole Blood 132 mg/dL (70-110)
[2024-09-20] MEDS: INSULIN LISPRO (HumaLOG) 100 UNIT/ML 10 mL VL SQ SCH (08:50)
[2024-09-20] MEDS: TAMSULOSIN 0.4 MG CAP.ER.24H PO SCH (08:51)
[2024-09-20] MEDS: CHOLECALCIFEROL 25 MCG (1000 IU) TABLET PO SCH (08:51)
[2024-09-20] MEDS: atenoloL 50 MG TAB PO SCH (08:51)
[2024-09-20] MEDS: ATORVASTATIN 20 MG TAB PO SCH (08:52)
[2024-09-20 10:09] LABS: Basophils # (A) 0.05 X 10*3/uL (0.00-0.10); Basophils % (A) 0.3 %; Eosinophils # (A) 0.01 X 10*3/uL (0.04-0.35); Eosinophils % (A) 0.1 %; HCT 39.6 % (39.6-50.0); HGB 12.5 g/dL (13.0-17.0); Lymphocytes # (A) 1.47 X 10*3/uL (0.90-5.00); Lymphocytes % (A) 8.7 %; MCH 31.3 pg (27.0-32.0); MCHC 31.6 g/dL (32.0-37.0); Monocytes # (A) 1.27 X 10*3/uL (0.20-1.00); Monocytes % (A) 7.5 %; NRBC Per 100 WBC 0 X 10*3/uL (0.00-0.01); Neutrophils # (A) 14.04 X 10*3/uL (1.80-7.70); Neutrophils % (A) 83.2 %; Platelet Count 133 X 10*3/uL (140-440); RDW 13.3 % (11.5-14.5); WBC 16.88 X 10*3/uL (4.50-10.00)
[2024-09-20] MEDS: MAGNESIUM SULFATE-D5W PMX 1 GM in DEXTROSE/WATER 1 100ML.BAG IVPB SCH (10:11)
[2024-09-20 10:47] LABS: Appearance,Urine Clear (Clear); Bacteria,Urine Rare /hpf; Bilirubin,Urine Negative (Negative); Blood,Urine Moderate (Negative); Color,Urine Colorless; Glucose,Urine (UA) Negative (Negative); Hyaline Casts,Urine 3 /lpf (0-2); Ketones,Urine Negative (Negative); Leukocyte Esterase,Urine Moderate (Negative); Mucus,Urine Rare /hpf; Nitrite,Urine Negative (Negative); PH, Urine 5.5 (5.0-8.0); Protein,Urine Negative (Negative); RBC,Urine 75 /hpf (0-5); Specific Gravity,Urine 1.015 (1.001-1.035); Urobilinogen,Urine <2.0 mg/dL (<2.0); WBC,Urine 21 /hpf (0-5)
[2024-09-20 12:24] LABS: Glucose,Whole Blood 148 mg/dL (70-110)
--- NOTE | 2024-09-20 14:33 | P.PN ---
Subjective Progress Note Date: 09/20/24 Principal diagnosis: Diagnosis 1. Hematuria 2. Urinary sepsis 3. Lactic acidosis with the possibility secondary to metformin 4. Cystitis rule out pyelonephritis with hematuria prior to hospitalization 5. Atrial fibrillation on Eliquis chronically with the possibility of bleeding hematuria attributed to the urine. 6. Hypertension with hypertensive heart disease currently on normotensive to hypotensive 7. Leukocytosis 25,000 on admission. 8. Hyperlipidemia 9. Cognitive function impairment 10. Bilateral knee arthroplasty. 11. CT of the abdomen with the mentioning spike shadow on the left lower lobe questionable or suspicious no history of smoking And chest x-ray was negative. Progress note Date of service 09/20/2024 Location ER exam room #[address] Bustamante Patient seen in the ER today discussed with his daughter, granddaughter, patient who was on hold for cardiac monitor technician through the floor [place] because of his lactic acidosis and magnesium however today magnesium supplemented with 2 g of magnesium Lactic acidosis recovered to 1.4 from 2.3 with hydration. We discontinued metformin with the suspicious causing the ketones as well as lactic acidosis. Patient currently on insulin to scale only. Because of his blood pressure on the low side we discontinued also amlodipine. Continued with the atenolol with the trial fibrillation chronically present, because of the hematuria we discontinue the Eliquis temporarily and treated with heparin subcu 5000 every 8 hour until for further clarification Hematuria with sepsis will be only UTI it has to be more than that to cause bleeding which associated with cystitis or glomerulonephritis for this reason we consulted nephrology also ultrasound of the kidney by typing secretary indicating that Ra nephric sweat sign which I am not sure what he means by that as well and we will ask nephrology. Patient seen by infectious disease Dr. Byers and patient started on ceftriaxone IV piggyback. I do not have yet the nephrology opinion I reviewed the urology opinion Dr. Alexander who stated that could be associated with hematuria with infectious of the urine. Discussed with patient and his daughter and extended time Discussed with Roverto TAYLOR the nurse attending the patient and the plan to admit to 4 S. instead of 3 [place] as his lactic acid recovered and supplemented with magnesium will check tomorrow in regard of magnesium level and electrolytes his GFR has been diminished in spite of the IV hydration minimally and we will be seeing the opinion of the nephrology as well Leukocytosis improved today from 25,000 to the 16,000 with good response to antibiotic On the examination: Vital sign on the chart Head was normocephalic atraumatic, pupil equal reactive conjunctiva was pink sclera was nonicteric normal hearing and oropharynx normal able to eat today with improved appetite Neck was supple no JVD no thyromegaly no lymphadenopathy trachea midline Chest is clear normal breath sound no wheezes no rhonchi's no shortness of breath no cough or expectoration Heart: Irregular irregularities, compensated with no edema of the lower extremities or rales on the bases of the lung Abdomen: Soft. Bowel sounds no organ enlargement Genitourinary he had Raines catheter with bag and currently cleared from the hematuria with the IV fluid Extremities: No edema and positive pulses Neurology: No confusion or disorientation and no lateralizing sign only mild forget fullness Psychiatry stable no depression or anxiety Assessment: 1. Urosepsis waiting for culture and sensitivity 2. Hematuria with the feeling at the time of urination of severe discomfort and shaky and inability urinate with the contraction of the bladder which indicate cystitis probably however we could not exclude glomerulonephritis with bleeding 3. Atrial fibrillation chronic with mild fluctuation of the heart rate and Eliquis has been withheld temporarily because of the hematuria, however patient on heparin subcu for DVT prophylaxis. Every 8 hours 4. History of hypertension and hypertensive heart disease, currently he is on normotensive to hypotensive side and will hold the amlodipine. 5. Lactic acidosis which has been recovered from 2.3 now corrected to 1.4. 6. Hyperlipidemia 7. Diabetes mellitus covered with insulin to scale. Currently stable Plan: 1. Will continue the antibiotic per Dr. Byers infectious disease 2. Waiting for nephrology consultation and explanation as well. 3. Continue monitoring diabetes mellitus and insulin therapy 4. Metformin has been discontinued 5. Amlodipine has been also discontinued. Further treatment depend on result of the laboratories and consulting physicians. Objective - Vital Signs Vital signs: Vital Signs Temp 98.4 F 09/20/24 06:00 Pulse 103 H 09/20/24 13:54 Resp 20 09/20/24 13:54 BP 106/76 09/20/24 13:54 Pulse Ox 93 L 09/20/24 13:54 FiO2 Intake & Output 09/19/24 09/20/24 09/20/24 18:59 06:59 18:59 Output Total 750 Balance -750 Weight 93.894 kg Output: Urine 750 - Labs CBC & Chem 7: 09/20/24 06:21 09/20/24 06:21 Labs: Abnormal Lab Results - Last 24 Hours (Table) 09/19/24 09/19/24 09/19/24 Range/Units 14:41 15:01 15:01 WBC 21.19 H (4.50-10.00) 10*3/uL RBC 4.37 L (4.40-5.60) 10*6/uL Hgb (13.0-17.0) g/dL MCV (80.0-97.0) FL MCH 32.3 H (27.0-32.0) pg MCHC (32.0-37.0) g/dL Plt Count (140-440) X 10*3/uL Immature Gran # 0.11 H (0.00-0.04) 10*3/uL Neutrophils # 17.91 H (1.80-7.70) 10*3/uL Monocytes # 1.64 H (0.20-1.00) 10*3/uL Eosinophils # 0.01 L (0.04-0.35) 10*3/uL PT (10.0-12.5) sec INR (<1.2) Sodium 133 L (137-145) mmol/L Potassium 5.3 H (3.5-5.1) mmol/L Carbon Dioxide 21 L (22-30) mmol/L Glucose 162 H (74-99) mg/dL POC Glucose (mg/dL) (70-110) mg/dL Hemoglobin A1c (<=6.0) % Plasma Lactic Acid Jonny (0.7-2.0) mmol/L Magnesium (1.6-2.3) mg/dL Total Bilirubin 1.5 H (0.2-1.3) mg/dL AST (17-59) U/L Total Protein (6.3-8.2) g/dL Albumin (3.5-5.0) g/dL Urine Blood (Negative) Ur Leukocyte Esterase (Negative) Urine RBC >182 H (0-5) /hpf Urine WBC >182 H (0-5) /hpf Urine Bacteria (None) /hpf Hyaline Casts (0-2) /lpf Urine Mucus (None) /hpf 09/19/24 09/19/2409/19/25 Range/Units 15:01 17:25 21:23 WBC (4.50-10.00) 10*3/uL RBC (4.40-5.60) 10*6/uL Hgb (13.0-17.0) g/dL MCV (80.0-97.0) FL MCH (27.0-32.0) pg MCHC (32.0-37.0) g/dL Plt Count (140-440) X 10*3/uL Immature Gran # (0.00-0.04) 10*3/uL Neutrophils # (1.80-7.70) 10*3/uL Monocytes # (0.20-1.00) 10*3/uL Eosinophils # (0.04-0.35) 10*3/uL PT 14.3 H (10.0-12.5) sec INR 1.4 H (<1.2) Sodium (137-145) mmol/L Potassium (3.5-5.1) mmol/L Carbon Dioxide (22-30) mmol/L Glucose (74-99) mg/dL POC Glucose (mg/dL) (70-110) mg/dL Hemoglobin A1c (<=6.0) % Plasma Lactic Acid Jonny 2.3 H* 2.3 H* (0.7-2.0) mmol/L Magnesium (1.6-2.3) mg/dL Total Bilirubin (0.2-1.3) mg/dL AST (17-59) U/L Total Protein (6.3-8.2) g/dL Albumin (3.5-5.0) g/dL Urine Blood (Negative) Ur Leukocyte Esterase (Negative) Urine RBC (0-5) /hpf Urine WBC (0-5) /hpf Urine Bacteria (None) /hpf Hyaline Casts (0-2) /lpf Urine Mucus (None) /hpf 09/20/24 09/20/24 09/20/24 Range/Units 06:21 06:21 06:21 WBC 16.88 H (4.50-10.00) 10*3/uL RBC 4.00 L (4.40-5.60) 10*6/uL Hgb 12.5 L (13.0-17.0) g/dL MCV 99.0 H (80.0-97.0) FL MCH (27.0-32.0) pg MCHC 31.6 L (32.0-37.0) g/dL Plt Count 133 L (140-440) X 10*3/uL Immature Gran # (0.00-0.04) 10*3/uL Neutrophils # 14.04 H (1.80-7.70) 10*3/uL Monocytes # 1.27 H (0.20-1.00) 10*3/uL Eosinophils # 0.01 L (0.04-0.35) 10*3/uL PT (10.0-12.5) sec INR (<1.2) Sodium 136 L (137-145) mmol/L Potassium (3.5-5.1) mmol/L Carbon Dioxide (22-30) mmol/L Glucose 147 H (74-99) mg/dL POC Glucose (mg/dL) (70-110) mg/dL Hemoglobin A1c 6.9 H (<=6.0) % Plasma Lactic Acid Jonny (0.7-2.0) mmol/L Magnesium 1.4 L (1.6-2.3) mg/dL Total Bilirubin (0.2-1.3) mg/dL AST 14 L (17-59) U/L Total Protein 5.3 L (6.3-8.2) g/dL Albumin 3.2 L (3.5-5.0) g/dL Urine Blood (Negative) Ur Leukocyte Esterase (Negative) Urine RBC (0-5) /hpf Urine WBC (0-5) /hpf Urine Bacteria (None) /hpf Hyaline Casts (0-2) /lpf Urine Mucus (None) /hpf 09/20/24 09/20/24 09/20/24 Range/Units 08:45 10:22 12:23 WBC (4.50-10.00) 10*3/uL RBC (4.40-5.60) 10*6/uL Hgb (13.0-17.0) g/dL MCV (80.0-97.0) FL MCH (27.0-32.0) pg MCHC (32.0-37.0) g/dL Plt Count (140-440) X 10*3/uL Immature Gran # (0.00-0.04) 10*3/uL Neutrophils # (1.80-7.70) 10*3/uL Monocytes # (0.20-1.00) 10*3/uL Eosinophils # (0.04-0.35) 10*3/uL PT (10.0-12.5) sec INR (<1.2) Sodium (137-145) mmol/L Potassium (3.5-5.1) mmol/L Carbon Dioxide (22-30) mmol/L Glucose (74-99) mg/dL POC Glucose (mg/dL) 132 H 148 H (70-110) mg/dL Hemoglobin A1c (<=6.0) % Plasma Lactic Acid Jonny (0.7-2.0) mmol/L Magnesium (1.6-2.3) mg/dL Total Bilirubin (0.2-1.3) mg/dL AST (17-59) U/L Total Protein (6.3-8.2) g/dL Albumin (3.5-5.0) g/dL Urine Blood Moderate H (Negative) Ur Leukocyte Esterase Moderate H (Negative) Urine RBC 75 H (0-5) /hpf Urine WBC 21 H (0-5) /hpf Urine Bacteria Rare H (None) /hpf Hyaline Casts 3 H (0-2) /lpf Urine Mucus Rare H (None) /hpf
[2024-09-20] MEDS: ACETAMINOPHEN TAB 325 MG TAB PO PRN (16:33)
[2024-09-20 17:04] LABS: Glucose,Whole Blood 136 mg/dL (70-110)
[2024-09-20 21:02] LABS: Glucose,Whole Blood 120 mg/dL (70-110)
--- NOTE | 2024-09-20 23:03 | P.CONS ---
History of Present Illness - Reason for Consult Consult date: 09/20/24 UTI with sepsis Requesting physician: Too Alejandra - Chief Complaint Difficulty urination dribbling x few days - History of Present Illness Patient is a 79-year-old male with past medical history significant for atrial fibrillation diabetes mellitus reflux hypertension osteoarthritis, patient be brought to the hospital concerning for difficulty urination for the last few days patient complaining of dribbling urine and urine looks to be blood-tinged and did have some discomfort with urination but though denies any suprapubic or flank pain. Denies having any fever or any chills on presentation to the hospital patient was afebrile and no fever have been called subsequently patient was tachycardic but not hypotensive or hypoxic and no need for supplemen griselda oxygen patient did have a white count of 21.19 creatinine is 1.17 he did have a positive UA with moderate leukocyte esterase more than 1-2 WBC patient has received a dose of Levaquin in the ER patient subsequently has been admitted to hospital infectious ease was consulted for concerning for UTI with sepsis and need for antibiotic therapy Review of Systems Positive point and negatives has been mentioned in the HPI, complete review of systems was performed and all other systems are negative Past Medical History Past Medical History: Atrial Fibrillation, Diabetes Mellitus, GERD/Reflux, Hypertension, Osteoarthritis (OA) Additional Past Medical History / Comment(s): varicose veins, using walker History of Any Multi-Drug Resistant Organisms: None Reported Past Surgical History: Joint Replacement, Tonsillectomy Additional Past Surgical History / Comment(s): RIGHT TOTAL KNEE, Past Anesthesia/Blood Transfusion Reactions: No Reported Reaction Past Psychological History: No Psychological Hx Reported Past Alcohol Use History: None Reported Past Drug Use History: None Reported - Past Family History Father Family Medical History: Cancer Sister(s) Family Medical History: Cancer Brother(s) Family Medical History: Cancer Daughter(s) Family Medical History: Cancer Mother Family Medical History: Cancer Medications and Allergies Home Medications Medication Instructions Recorded Confirmed Type metFORMIN HCL [Glucophage] 500 mg PO BID 01/13/15 09/19/24 History Tamsulosin [Flomax] 0.4 mg PO DAILY 04/26/16 09/19/24 History Apixaban [Eliquis] 5 mg PO BID 05/04/19 09/19/24 History amLODIPine [Norvasc] 5 mg PO BID@1300,2100 05/04/19 09/19/24 History atenoloL [Tenormin] 50 mg PO DAILY 05/04/19 09/19/24 History Atorvastatin [Lipitor] 20 mg PO DAILY 09/19/24 09/19/24 History Cholecalciferol (Vitamin D3) 50 mcg PO DAILY 09/19/24 09/19/24 History [Vitamin D3 (50 Mcg = 2000 Iu)] Donepezil [Aricept] 5 mg PO HS 09/19/24 09/19/24 History Ferrous Sulfate [Feosol] 325 mg PO DAILY 09/19/24 09/19/24 History Fexofenadine HCl [Alma Allergy] 180 mg PO DAILY 09/19/24 09/19/24 History Magnesium Oxide [Mag-Ox] 400 mg PO DAILY 09/19/24 09/19/24 History Spironolactone [Aldactone] 12.5 mg PO DAILY 09/19/24 09/19/24 History lisinopriL [Zestril] 10 mg PO DAILY 09/19/24 09/19/24 History Allergies Allergy/AdvReac Type Severity Reaction Status Date / Time Penicillins Allergy Rash/Hives,throat Verified 09/19/24 18:25 swelling Physical Exam Vitals: Vital Signs Temp Pulse Resp BP Pulse Ox 09/20/24 10:11 105 H 20 106/65 92 L 09/20/24 08:46 105 H 20 109/71 91 L 09/20/24 06:00 98.4 F 92 18 111/61 94 L 09/20/24 04:17 109 H 18 106/79 97 09/20/24 02:00 98.8 F 106 H 20 116/75 95 09/19/24 23:00 110 H 22 118/71 95 09/19/24 22:00 112 H 24 129/84 94 L 09/19/24 21:00 101 H 30 H 88/56 93 L 09/19/24 20:00 116 H 20 111/79 94 L 09/19/24 18:04 121 H 22 113/81 91 L 09/19/24 17:43 98.2 F 110 H 20 105/90 94 L 09/19/24 17:16 98.2 F 114 H 20 105/90 94 L 09/19/24 15:33 113 H 20 131/83 95 09/19/24 14:40 98.7 F 111 H 18 124/82 96 Intake and Output 09/19/24 09/20/24 09/20/24 22:59 06:59 14:59 Output Total 750 Balance -750 Output: Urine 750 GENERAL DESCRIPTION: Elderly male lying in bed, no distress. No tachypnea or accessory muscle of respiration use. HEENT: Shows Pallor , no scleral icterus. Oral mucous membrane is dry. NECK: Trachea central, no thyromegaly. LUNGS: Unlabored breathing. Clear to auscultation anteriorly. No wheeze or crackle. HEART: S1, S2, regular rate and rhythm. No loud murmur ABDOMEN: Soft, no tenderness , EXTREMITIES: No edema of feet. SKIN: No rash, no masses palpable. NEUROLOGICAL: The patient is awake, alert, oriented x3, mood and affect normal. Results CBC & Chem 7: 09/20/24 06:21 09/20/24 06:21 Labs: Abnormal Lab Results - Last 24 Hours (Table) 09/19/24 09/19/24 09/19/24 Range/Units 14:41 15:01 15:01 WBC 21.19 H (4.50-10.00) 10*3/uL RBC 4.37 L (4.40-5.60) 10*6/uL Hgb (13.0-17.0) g/dL MCV (80.0-97.0) FL MCH 32.3 H (27.0-32.0) pg MCHC (32.0-37.0) g/dL Plt Count (140-440) X 10*3/uL Immature Gran # 0.11 H (0.00-0.04) 10*3/uL Neutrophils # 17.91 H (1.80-7.70) 10*3/uL Monocytes # 1.64 H (0.20-1.00) 10*3/uL Eosinophils # 0.01 L (0.04-0.35) 10*3/uL PT (10.0-12.5) sec INR (<1.2) Sodium 133 L (137-145) mmol/L Potassium 5.3 H (3.5-5.1) mmol/L Carbon Dioxide 21 L (22-30) mmol/L Glucose 162 H (74-99) mg/dL POC Glucose (mg/dL) (70-110) mg/dL Hemoglobin A1c (<=6.0) % Plasma Lactic Acid Jonny (0.7-2.0) mmol/L Magnesium (1.6-2.3) mg/dL Total Bilirubin 1.5 H (0.2-1.3) mg/dL AST (17-59) U/L Total Protein (6.3-8.2) g/dL Albumin (3.5-5.0) g/dL Urine Blood (Negative) Ur Leukocyte Esterase (Negative) Urine RBC >182 H (0-5) /hpf Urine WBC >182 H (0-5) /hpf Urine Bacteria (None) /hpf Hyaline Casts (0-2) /lpf Urine Mucus (None) /hpf 09/19/24 09/19/24 09/19/24 Range/Units 15:01 17:25 21:23 WBC (4.50-10.00) 10*3/uL RBC (4.40-5.60) 10*6/uL Hgb (13.0-17.0) g/dL MCV (80.0-97.0) FL MCH (27.0-32.0) pg MCHC (32.0-37.0) g/dL Plt Count (140-440) X 10*3/uL Immature Gran # (0.00-0.04) 10*3/uL Neutrophils # (1.80-7.70) 10*3/uL Monocytes # (0.20-1.00) 10*3/uL Eosinophils # (0.04-0.35) 10*3/uL PT 14.3 H (10.0-12.5) sec INR 1.4 H (<1.2) Sodium (137-145) mmol/L Potassium (3.5-5.1) mmol/L Carbon Dioxide (22-30) mmol/L Glucose (74-99) mg/dL POC Glucose (mg/dL) (70-110) mg/dL Hemoglobin A1c (<=6.0) % Plasma Lactic Acid Jonny 2.3 H* 2.3 H* (0.7-2.0) mmol/L Magnesium (1.6-2.3) mg/dL Total Bilirubin (0.2-1.3) mg/dL AST (17-59) U/L Total Protein (6.3-8.2) g/dL Albumin (3.5-5.0) g/dL Urine Blood (Negative) Ur Leukocyte Esterase (Negative) Urine RBC (0-5) /hpf Urine WBC (0-5) /hpf Urine Bacteria (None) /hpf Hyaline Casts (0-2) /lpf Urine Mucus (None) /hpf 09/20/24 09/20/24 09/20/24 Range/Units 06:21 06:21 06:21 WBC 16.88 H (4.50-10.00) 10*3/uL RBC 4.00 L (4.40-5.60) 10*6/uL Hgb 12.5 L (13.0-17.0) g/dL MCV 99.0 H (80.0-97.0) FL MCH (27.0-32.0) pg MCHC 31.6 L (32.0-37.0) g/dL Plt Count 133 L (140-440) X 10*3/uL Immature Gran # (0.00-0.04) 10*3/uL Neutrophils # 14.04 H (1.80-7.70) 10*3/uL Monocytes # 1.27 H (0.20-1.00) 10*3/uL Eosinophils # 0.01 L (0.04-0.35) 10*3/uL PT (10.0-12.5) sec INR (<1.2) Sodium 136 L (137-145) mmol/L Potassium (3.5-5.1) mmol/L Carbon Dioxide (22-30) mmol/L Glucose 147 H (74-99) mg/dL POC Glucose (mg/dL) (70-110) mg/dL Hemoglobin A1c 6.9 H (<=6.0) % Plasma Lactic Acid Jonny (0.7-2.0) mmol/L Magnesium 1.4 L (1.6-2.3) mg/dL Total Bilirubin (0.2-1.3) mg/dL AST 14 L (17-59) U/L Total Protein 5.3 L (6.3-8.2) g/dL Albumin 3.2 L (3.5-5.0) g/dL Urine Blood (Negative) Ur Leukocyte Esterase (Negative) Urine RBC (0-5) /hpf Urine WBC (0-5) /hpf Urine Bacteria (None) /hpf Hyaline Casts (0-2) /lpf Urine Mucus (None) /hpf 09/20/24 09/20/24 Range/Units 08:45 10:22 WBC (4.50-10.00) 10*3/uL RBC (4.40-5.60) 10*6/uL Hgb (13.0-17.0) g/dL MCV (80.0-97.0) FL MCH (27.0-32.0) pg MCHC (32.0-37.0) g/dL Plt Count (140-440) X 10*3/uL Immature Gran # (0.00-0.04) 10*3/uL Neutrophils # (1.80-7.70) 10*3/uL Monocytes # (0.20-1.00) 10*3/uL Eosinophils # (0.04-0.35) 10*3/uL PT (10.0-12.5) sec INR (<1.2) Sodium (137-145) mmol/L Potassium (3.5-5.1) mmol/L Carbon Dioxide (22-30) mmol/L Glucose (74-99) mg/dL POC Glucose (mg/dL) 132 H (70-110) mg/dL Hemoglobin A1c (<=6.0) % Plasma Lactic Acid Jonny (0.7-2.0) mmol/L Magnesium (1.6-2.3) mg/dL Total Bilirubin (0.2-1.3) mg/dL AST (17-59) U/L Total Protein (6.3-8.2) g/dL Albumin (3.5-5.0) g/dL Urine Blood Moderate H (Negative) Ur Leukocyte Esterase Moderate H (Negative) Urine RBC 75 H (0-5) /hpf Urine WBC 21 H (0-5) /hpf Urine Bacteria Rare H (None) /hpf Hyaline Casts 3 H (0-2) /lpf Urine Mucus Rare H (None) /hpf Assessment and Plan (1) Penicillin allergy Current Visit: Yes Status: Acute Code(s): Z88.0 - ALLERGY STATUS TO PENICILLIN SNOMED Code(s): 36689392 (2) UTI (urinary tract infection) Current Visit: Yes Status: Acute Code(s): N39.0 - URINARY TRACT INFECTION, SITE NOT SPECIFIED SNOMED Code(s): 27736508 Plan: 1patient presented to hospital with difficulty urination did have a some dribbling pain and blood in the urine concerning for symptomatic UTI likely from tachycardia gram-negative pathogen 2-patient with a penicillin allergy that would limit the number of antibiotic safe to use 3-we will start the patient on Rocephin 2 g daily while waiting for the culture to finalize We will follow on clinical condition and cultures to further adjust medication if needed Thank you for this consultation we will follow the patient along with you Dictation was produced using [employer] dictation software. please excuse any grammatical, word or spelling errors. Time with Patient: Greater than 30
[2024-09-21 06:36] LABS: Glucose,Whole Blood 155 mg/dL (70-110)
[2024-09-21 08:15] LABS: HCT 38.5 % (39.6-50.0); HGB 12.4 g/dL (13.0-17.0); MCH 31.6 pg (27.0-32.0); MCHC 32.2 g/dL (32.0-37.0); Mean Platelet Volume 10.2 FL (9.5-12.2); NRBC Per 100 WBC 0 X 10*3/uL (0.00-0.01); Platelet Count 138 X 10*3/uL (140-440); RBC 3.93 X 10*6/uL (4.40-5.60); RDW 13.2 % (11.5-14.5)
[2024-09-21 08:16] LABS: Basophils # (A) 0.05 X 10*3/uL (0.00-0.10); Basophils % (A) 0.4 %; Eosinophils # (A) 0.16 X 10*3/uL (0.04-0.35); Eosinophils % (A) 1.3 %; Lymphocytes # (A) 1.59 X 10*3/uL (0.90-5.00); Lymphocytes % (A) 13.4 %; Monocytes # (A) 0.74 X 10*3/uL (0.20-1.00); Monocytes % (A) 6.2 %; Neutrophils # (A) 9.31 X 10*3/uL (1.80-7.70); Neutrophils % (A) 78.3 %
[2024-09-21 08:46] LABS: Blood Urea Nitrogen 17.5 mg/dL (9.0-27.0); Calcium 8.2 mg/dL (8.7-10.3); Carbon Dioxide 21.3 mmol/L (21.6-31.8); Chloride 104 mmol/L (96-109); Glucose 140 mg/dL (70-110); Magnesium 1.8 mg/dL (1.5-2.4); Potassium 4.5 mmol/L (3.5-5.5); Sodium 136 mmol/L (135-145)
--- NOTE | 2024-09-21 10:59 | CT ---
EXAMINATION TYPE: CT chest wo con CT DLP: 465.7 mGycm, Automated exposure control for dose reduction was used. DATE OF EXAM: 09/21/2024 10:48 AM COMPARISON: Chest radiograph 09/19/2024, CT abdomen and pelvis 09/19/2024 CLINICAL INDICATION:Male, 79 years old with history of shadow left lower lung spiculated per abd. ct; [facility], Shadow left lower lung spiculated per abd ct TECHNIQUE: Multiple axial images were obtained through the chest without IV contrast. Lack of IV or o ral contrast limits evaluation of solid and hollow organ viscera. . Coronal and sagittal reformats re viewed. FINDINGS: LUNGS/ PLEURA: No pneumothorax. Trace bilateral pleural effusions. Elevation of the right hemidiaphra gm. Redemonstration of spiculated focal opacity within the dependent portion of the left lower lobe m easuring grossly 3.9 x 2.5 cm (series 205, image 21). No other suspicious pulmonary nodules or masses . Mild dependent right lower lobe atelectasis. AIRWAY: Patent and unremarkable.. HEART: Size within normal limits. No pericardial effusion. Mild to moderate coronary artery calcifica tions present. Most pronounced within the LAD. MEDIASTINUM: No gross evidence of adenopathy. VASCULATURE: No aortic aneurysm. Ectasia of the ascending thoracic aorta measuring up to 3.9 cm. Mil d atherosclerotic calcification of the aorta and its branches. MUSCULOSKELETAL: No acute osseous abnormalities. No aggressive osseous lesion. SOFT TISSUES/LYMPH NODES: Unremarkable. LOWER NECK: No significant findings. UPPER ABDOMEN: Cholelithiasis with a calculus measuring 4 mm within the gallbladder neck. IMPRESSION: Trace bilateral pleural effusions with development of mild right lower lobe subsegmental atelectasis. Similar spiculated focal opacity within the dependent portion of the left lower lobe. Favored to rep resent atelectasis/infiltrate however underlying mass is not included. Recommend follow-up CT chest i n 3-6 months. [facility], , 09/21/2024 10:56 AM
[2024-09-21 11:51] LABS: Glucose,Whole Blood 163 mg/dL (70-110)
[2024-09-21] MEDS ORDERED: MAGNESIUM HYDROXIDE 2,400 MG/30 ML CUP PO PRN (13:11)
--- NOTE | 2024-09-21 13:11 | P.PN ---
Subjective Progress Note Date: 09/21/24 Dictation of progress note Date of service 09/21/[address] Bustamante Location 480 bed 1. Patient is seen evaluated [id number] at bedside. Interval: Patient received CT scan of the chest today because of the previous abdominal CT scan done in the ER was indicating spiculated shadow For the follow-up on the CT scan as recommended by the obtaining the chest x- ray, done today and indicating still spiculated shadow or mass in the left lower lung field and will be consulting pulmonary and critical care Dr. Mueller who is on this week rounding for pulmonary group. We did consult nephrology and the reason for that was patient has gross hematuria for over sudden onset prior to admission to the hospital, and he had underlying chronic kidney disease stage II at that time and we did ultrasound of the kidney and was reported by the radiology perinephric sweat sign which is indicator of of underlying renal parenchymal disease and renal failure. And for that purpose we consulted the nephrology and we started the hydration as well because of his lactic acidosis patient was also on Eliquis which we did at this time and replaced by heparin subcu as well and we have discontinued metformin with the lactic acidosis with the possibility to be induced with. As of Today Patient Seen and Evaluated during his laboratory: His white count went to down to 11.9 and hematocrit is 38.5 and hemoglobin 12.4. His platelet count 138. And chemistry profile indicating sodium 136 potassium 4.5 and carbon dioxide 21.3 with the creatinine is 1 and EGFR 77 which is improved glucose 140 and he is only on insulin to scale. Lactic acid now is back to normal 0.9 and magnesium 1.8. Which was low 1.5. Vital sign: Temperature 97.5 F oral and heart rate irregular with range between 10 2-98, respiratory rate 20/min and blood pressure 120/80 with a mean 93 and oxygen saturation 95 on 2 L nasal cannula. On examination patient is conscious alert oriented able to communicate really and I did discuss it with his nurse and will DC the Raines catheter today when the urine is clear He has no bowel movement for the last 3 days and we will start him on milk of magnesia and adding stool softener. Head was normocephalic atraumatic pupil was equal reactive conjunctiva was pink sclera was nonicteric extraocular muscle movement is intact. Oropharynx natural teeth and hearing is normal. Neck was supple no JVD no thyromegaly no lymphadenopathy trachea midline Chest was clear to auscultation percussion no wheezes no rhonchi's in spite of that CT scan was done and showed that still the spiculated shadow in the left lower lung field Heart irregular irregularities with the chronic atrial fibrillation currently on heparin and once he was seen by pulmonary we will resume tomorrow the Eliquis. For the atrial fibrillation and will watch if there is any bleeding Abdomen soft positive bowel sound no organ enlargement extremities no edema. Pulses. Good urine output and Raines catheter discontinued today Neurology stable Psychiatry stable. Assessment: And plan 1. Patient presented with gross hematuria 2. Generalized weakness with sepsis and probable cystitis and could not exclude believed pyelonephritis with hematuria. 3. The ultrasound was found perinephric swirl sign and that could be associated with the parenchymal disease of the kidneys we consulted nephrology 4. Mild dehydration and questionable underlying diabetic nephropathy. 5. History of hypertension currently was on the hypotensive and blood pressure has been discontinued now recovered with the blood pressure 120/80. 6. Raines catheter discontinued 7. Hopefully will resume the Eliquis tomorrow if there is no further investigation by pulmonary and critical care 8. Ambulation. #9 waiting for input from nephrology with the above that. 9. Discussed with the patient. In detail Objective - Vital Signs Vital signs: Vital Signs Temp 97.5 F L 09/21/24 08:00 Pulse 98 09/21/24 08:00 Resp 20 09/21/24 08:00 BP 120/80 09/21/24 08:00 Pulse Ox 95 09/21/24 08:00 FiO2 Intake & Output 09/20/24 09/21/24 09/21/24 18:59 06:59 18:59 Intake Total 800 Output Total 800 Balance 800 -800 Weight 93.894 kg Intake: Intake, IV Titration 400 Amount Sodium Chloride 0.9% 1, 400 000 ml @ 100 mls/hr IV . Q10H [facility] Rx#:[id number] Oral 400 Output: Urine 800 Other: Voiding Method Indwelling Catheter Indwelling Catheter - Labs CBC & Chem 7: 09/21/24 03:25 09/21/24 03:25 Labs: Abnormal Lab Results - Last 24 Hours (Table) 09/20/24 09/20/24 09/21/24 Range/Units 17:01 21:00 03:25 WBC 11.90 H (4.50-10.00) X 10*3/uL RBC 3.93 L (4.40-5.60) X 10*6/uL Hgb 12.4 L (13.0-17.0) g/dL Hct 38.5 L (39.6-50.0) % MCV 98.0 H (80.0-97.0) FL Plt Count 138 L (140-440) X 10*3/uL Immature Gran # 0.05 H (0.00-0.04) X 10*3/uL Neutrophils # 9.31 H (1.80-7.70) X 10*3/uL Carbon Dioxide (21.6-31.8) mmol/L Glucose (70-110) mg/dL POC Glucose (mg/dL) 136 H 120 H (70-110) mg/dL Calcium (8.7-10.3) mg/dL 09/21/24 09/21/24 09/21/24 Range/Units 03:25 06:34 11:45 WBC (4.50-10.00) X 10*3/uL RBC (4.40-5.60) X 10*6/uL Hgb (13.0-17.0) g/dL Hct (39.6-50.0) % MCV (80.0-97.0) FL Plt Count (140-440) X 10*3/uL Immature Gran # (0.00-0.04) X 10*3/uL Neutrophils # (1.80-7.70) X 10*3/uL Carbon Dioxide 21.3 L (21.6-31.8) mmol/L Glucose 140 H (70-110) mg/dL POC Glucose (mg/dL) 155 H 163 H (70-110) mg/dL Calcium 8.2 L (8.7-10.3) mg/dL Microbiology - Last 24 Hours (Table) 09/19/24 17:25 Blood Culture - Preliminary Blood
--- NOTE | 2024-09-21 13:30 | P.NPCON ---
History of Present Illness - Reason for Consult acute renal failure, chronic renal failure - History of Present Illness Patient is a 79-year-old male with history of type 2 diabetes, chronic A-fib, hypertension who is admitted to the hospital with difficulty in passing urine. He also had some dribbling. No history of fever chills nausea vomiting or abdominal pain He is noted to have a urinary tract infection with urine WBCs more than 182. Serum creatinine has been 1.1 to 1.0 mg/dL with previous creatinine about the same Abdominal CT did not show any evidence of obstruction. Currently maintained on IV antibiotics Tolerating oral intake Past Medical History Past Medical History: Atrial Fibrillation, Diabetes Mellitus, GERD/Reflux, Hypertension, Osteoarthritis (OA) Additional Past Medical History / Comment(s): varicose veins, using walker History of Any Multi-Drug Resistant Organisms: None Reported Past Surgical History: Joint Replacement, Tonsillectomy Additional Past Surgical History / Comment(s): RIGHT TOTAL KNEE, Past Anesthesia/Blood Transfusion Reactions: No Reported Reaction Past Psychological History: No Psychological Hx Reported Past Alcohol Use History: None Reported Past Drug Use History: None Reported - Past Family History Father Family Medical History: Cancer Sister(s) Family Medical History: Cancer Brother(s) Family Medical History: Cancer Daughter(s) Family Medical History: Cancer Mother Family Medical History: Cancer Medications and Allergies Home Medications Medication Instructions Recorded Confirmed Type metFORMIN HCL [Glucophage] 500 mg PO BID 01/13/15 09/19/24 History Tamsulosin [Flomax] 0.4 mg PO DAILY 04/26/16 09/19/24 History Apixaban [Eliquis] 5 mg PO BID 05/04/19 09/19/24 History amLODIPine [Norvasc] 5 mg PO BID@1300,2100 05/04/19 09/19/24 History atenoloL [Tenormin] 50 mg PO DAILY 05/04/19 09/19/24 History Atorvastatin [Lipitor] 20 mg PO DAILY 09/19/24 09/19/24 History Cholecalciferol (Vitamin D3) 50 mcg PO DAILY 09/19/24 09/19/24 History [Vitamin D3 (50 Mcg = 2000 Iu)] Donepezil [Aricept] 5 mg PO HS 09/19/24 09/19/24 History Ferrous Sulfate [Feosol] 325 mg PO DAILY 09/19/24 09/19/24 History Fexofenadine HCl [Alma Allergy] 180 mg PO DAILY 09/19/24 09/19/24 History Magnesium Oxide [Mag-Ox] 400 mg PO DAILY 09/19/24 09/19/24 History Spironolactone [Aldactone] 12.5 mg PO DAILY 09/19/24 09/19/24 History lisinopriL [Zestril] 10 mg PO DAILY 09/19/24 09/19/24 History Allergies Allergy/AdvReac Type Severity Reaction Status Date / Time Penicillins Allergy Rash/Hives,throat Verified 09/19/24 18:25 swelling Physical Exam Vitals: Vital Signs Temp Pulse Pulse Resp BP BP BP 09/21/24 08:00 97.5 F L 98 20 120/80 09/21/24 00:47 98.1 F 102 H 19 105/72 09/20/24 19:27 97.7 F 74 18 93/56 09/20/24 15:56 105 H 20 106/64 09/20/24 13:54 103 H 20 106/76 Pulse Ox 09/21/24 08:00 95 09/21/24 00:47 93 L 09/20/24 19:27 93 L 09/20/24 15:56 97 09/20/24 13:54 93 L Intake and Output 09/20/24 09/21/24 09/21/24 22:59 06:59 14:59 Intake Total 800 Output Total 800 Balance 800 -800 Intake: Intake, IV Titration 400 Amount Sodium Chloride 0.9% 1, 400 000 ml @ 100 mls/hr IV . Q10H [facility] Rx#:[id number] Oral 400 Output: Urine 800 Other: Voiding Method Indwelling Catheter Indwelling Catheter Weight 93.894 kg Patient is awake, comfortable, no acute distress Examination of the heart S1 and S2 Examination of the lungs bilateral breath sounds are heard Abdomen is soft nontender Examination of lower extremities shows no significant edema [employer] exam grossly intact Results - Lab Results Most recent lab results Calcium 8.2 mg/dL (8.7-10.3) L 09/21/24 03:25 Magnesium 1.8 mg/dL (1.5-2.4) 09/21/24 03:25 09/21/24 03:25 09/21/24 03:25 Assessment and Plan Assessment: 1. Urinary tract infection maintained on IV antibiotics 2. Volume depletion maintained on IV fluids 3. History of type 2 diabetes with UA showing no evidence of proteinuria 4. Mild metabolic acidosis most likely related to IV fluids Plan: Change IV fluids to Ringer lactate, decrease dose to about 50 cc an hour Continue with antibiotics Abnormality on ultrasound is unremarkable with no major concern for significant underlying nephrology issues.
--- NOTE | 2024-09-21 15:05 | P.CNPUL ---
History of Present Illness Consult date: 09/21/24 Requesting physician: Odilon Bustamante Reason for consult: abnormal CXR/CT Chief complaint: Difficulty urinating History of present illness: This is a pleasant 79-year-old male patient with a known history of diabetes mellitus, hypertension, enlarged prostate. He presented here to the emergency room on September 19, 2024 with complaints of difficulty in urinating for a few days prior. But he did have some small amounts of blood-tinged urine. He did have a catheter placed and was being followed by urology. He had a CT scan of the chest done 09/21/2024 which revealed trace bilateral pleural effusions with development of meant of mid right lower lobe subsegmental atelectasis. There was some spiculated focal opacity within the dependent portion of the left lower lobe favored to be atelectasis however underlying mass was not excluded and we were consulted today for the same. White count 11.9. Hemoglobin 12.4. Platelets 138. Sodium 136. Potassium 4.5. Bicarb 21. BUN 18. Creatinine 1.0 . Glucose 140. He is seen today in consultation on the regular medical floor. He is resting in bed. Awake and alert in no acute distress. He denies any shortness of breath, cough or congestion. He is a lifelong non-smoker. He is maintaining O2 saturation in the mid 90s on 2 L/min per nasal cannula. Afebrile. Hemodynamically stable. Review of Systems REVIEW OF SYSTEMS: CONSTITUTIONAL: Denies any recent significant weight loss or weight gain. EYES: Denies change in vision. EARS, NOSE, MOUTH, THROAT: Denies headaches, denies sore throat. CARDIOVASCULAR: Denies chest pain, palpitations or syncopal episodes. RESPIRATORY: Denies shortness of breath, cough, congestion or hemoptysis. GASTROINTESTINAL: Denies change in appetite, denies abdominal pain GENITOURINARY: Difficulty in urination. MUSKULOSKELETAL: Denies pain, denies swelling. INTEGUMENTARY: Denies rash, denies eczema. NEUROLOGICAL: Denies recent memory loss, no recent seizure activity. PSYCHIATRIC: Denies anxiety, denies depression. HEMATOLOGIC/LYMPHATIC: Denies anemia, denies enlarged lymph nodes. Past Medical History Past Medical History: Atrial Fibrillation, Diabetes Mellitus, GERD/Reflux, Hypertension, Osteoarthritis (OA) Additional Past Medical History / Comment(s): varicose veins, using walker History of Any Multi-Drug Resistant Organisms: None Reported Past Surgical History: Joint Replacement, Tonsillectomy Additional Past Surgical History / Comment(s): RIGHT TOTAL KNEE, Past Anesthesia/Blood Transfusion Reactions: No Reported Reaction Past Psychological History: No Psychological Hx Reported Past Alcohol Use History: None Reported Past Drug Use History: None Reported - Past Family History Father Family Medical History: Cancer Sister(s) Family Medical History: Cancer Brother(s) Family Medical History: Cancer Daughter(s) Family Medical History: Cancer Mother Family Medical History: Cancer Medications and Allergies Home Medications Medication Instructions Recorded Confirmed Type metFORMIN HCL [Glucophage] 500 mg PO BID 01/13/15 09/19/24 History Tamsulosin [Flomax] 0.4 mg PO DAILY 04/26/16 09/19/24 History Apixaban [Eliquis] 5 mg PO BID 05/04/19 09/19/24 History amLODIPine [Norvasc] 5 mg PO BID@1300,2100 05/04/19 09/19/24 History atenoloL [Tenormin] 50 mg PO DAILY 05/04/19 09/19/24 History Atorvastatin [Lipitor] 20 mg PO DAILY 09/19/24 09/19/24 History Cholecalciferol (Vitamin D3) 50 mcg PO DAILY 09/19/24 09/19/24 History [Vitamin D3 (50 Mcg = 2000 Iu)] Donepezil [Aricept] 5 mg PO HS 09/19/24 09/19/24 History Ferrous Sulfate [Feosol] 325 mg PO DAILY 09/19/24 09/19/24 History Fexofenadine HCl [Alma Allergy] 180 mg PO DAILY 09/19/24 09/19/24 History Magnesium Oxide [Mag-Ox] 400 mg PO DAILY 09/19/24 09/19/24 History Spironolactone [Aldactone] 12.5 mg PO DAILY 09/19/24 09/19/24 History lisinopriL [Zestril] 10 mg PO DAILY 09/19/24 09/19/24 History Allergies Allergy/AdvReac Type Severity Reaction Status Date / Time Penicillins Allergy Rash/Hives,throat Verified 09/19/24 18:25 swelling Physical Exam Vitals: Vital Signs Temp Pulse Pulse Resp BP BP BP 09/21/24 14:00 98.1 F 98 18 118/76 09/21/24 08:00 97.5 F L 98 20 120/80 09/21/24 00:47 98.1 F 102 H 19 105/72 09/20/24 19:27 97.7 F 74 18 93/56 09/20/24 15:56 105 H 20 106/64 Pulse Ox 09/21/24 14:00 95 09/21/24 08:00 95 09/21/24 00:47 93 L 09/20/24 19:27 93 L 09/20/24 15:56 97 Intake and Output 09/20/24 09/21/24 09/21/24 22:59 06:59 14:59 Intake Total 800 Output Total 800 700 Balance 800 -800 -700 Intake: Intake, IV Titration 400 Amount Sodium Chloride 0.9% 1, 400 000 ml @ 100 mls/hr IV . Q10H [facility] Rx#:[id number] Oral 400 Output: Urine 800 700 Uretheral (Raines) 700 Other: Voiding Method Indwelling Catheter Indwelling Catheter Weight 93.894 kg GENERAL EXAM: Alert, pleasant 79-year-old male, on 2 L nasal cannula, comfortable in no apparent distress. HEAD: Normocephalic. EYES: Normal reaction of pupils, equal size. NOSE: Clear with pink turbinates. THROAT: No erythema or exudates. NECK: No masses, no JVD. CHEST: No chest wall deformity. LUNGS: Equal air entry with no crackles, wheeze, rhonchi or dullness. CVS: S1 and S2 normal with no audible murmur, regular rhythm. ABDOMEN: No hepatosplenomegaly, normal bowel sounds, no guarding or rigidity. SPINE: No scoliosis or deformity SKIN: No rashes CENTRAL NERVOUS SYSTEM: No focal deficits, tone is normal in all 4 extremities. EXTREMITIES: There is no peripheral edema. No clubbing, no cyanosis. Peripheral pulses are intact. Results - Laboratory Findings CBC and BMP: 09/21/24 03:25 09/21/24 03:25 PT/INR, D-dimer PT 14.3 sec (10.0-12.5) H 09/19/24 15:01 INR 1.4 (<1.2) H 09/19/24 15:01 Abnormal lab findings: Abnormal Labs 09/19/24 09/19/24 09/19/24 14:41 15:01 15:01 WBC 21.19 H RBC 4.37 L Hgb Hct MCV MCH 32.3 H MCHC Plt Count Immature Gran # 0.11 H Neutrophils # 17.91 H Monocytes # 1.64 H Eosinophils # 0.01 L PT INR Sodium 133 L Potassium 5.3 H Carbon Dioxide 21 L Glucose 162 H POC Glucose (mg/dL) Hemoglobin A1c Plasma Lactic Acid Jonny Calcium Magnesium Total Bilirubin 1.5 H AST Total Protein Albumin Urine Blood Ur Leukocyte Esterase Urine RBC >182 H Urine WBC >182 H Urine Bacteria Hyaline Casts Urine Mucus 09/19/24 09/19/24 09/19/24 15:01 17:25 21:23 WBC RBC Hgb Hct MCV MCH MCHC Plt Count Immature Gran # Neutrophils # Monocytes # Eosinophils # PT 14.3 H INR 1.4 H Sodium Potassium Carbon Dioxide Glucose POC Glucose (mg/dL) Hemoglobin A1c Plasma Lactic Acid Jonny 2.3 H* 2.3 H* Calcium Magnesium Total Bilirubin AST Total Protein Albumin Urine Blood Ur Leukocyte Esterase Urine RBC Urine WBC Urine Bacteria Hyaline Casts Urine Mucus 09/20/24 09/20/24 09/20/24 06:21 06:21 06:21 WBC 16.88 H RBC 4.00 L Hgb 12.5 L Hct MCV 99.0 H MCH MCHC 31.6 L Plt Count 133 L Immature Gran # Neutrophils # 14.04 H Monocytes # 1.27 H Eosinophils # 0.01 L PT INR Sodium 136 L Potassium Carbon Dioxide Glucose 147 H POC Glucose (mg/dL) Hemoglobin A1c 6.9 H Plasma Lactic Acid Jonny Calcium Magnesium 1.4 L Total Bilirubin AST 14 L Total Protein 5.3 L Albumin 3.2 L Urine Blood Ur Leukocyte Esterase Urine RBC Urine WBC Urine Bacteria Hyaline Casts Urine Mucus 09/20/24 09/20/24 09/20/24 08:45 10:22 12:23 WBC RBC Hgb Hct MCV MCH MCHC Plt Count Immature Gran # Neutrophils # Monocytes # Eosinophils # PT INR Sodium Potassium Carbon Dioxide Glucose POC Glucose (mg/dL) 132 H 148 H Hemoglobin A1c Plasma Lactic Acid Jonny Calcium Magnesium Total Bilirubin AST Total Protein Albumin Urine Blood Moderate H Ur Leukocyte Esterase Moderate H Urine RBC 75 H Urine WBC 21 H Urine Bacteria Rare H Hyaline Casts 3 H Urine Mucus Rare H 0609/20/24 09/21/24 17:01 21:00 03:25 WBC 11.90 H RBC 3.93 L Hgb 12.4 L Hct 38.5 L MCV 98.0 H MCH MCHC Plt Count 138 L Immature Gran # 0.05 H Neutrophils # 9.31 H Monocytes # Eosinophils # PT INR Sodium Potassium Carbon Dioxide Glucose POC Glucose (mg/dL) 136 H 120 H Hemoglobin A1c Plasma Lactic Acid Jonny Calcium Magnesium Total Bilirubin AST Total Protein Albumin Urine Blood Ur Leukocyte Esterase Urine RBC Urine WBC Urine Bacteria Hyaline Casts Urine Mucus 09/21/24 09/21/24 09/21/24 03:25 06:34 11:45 WBC RBC Hgb Hct MCV MCH MCHC Plt Count Immature Gran # Neutrophils # Monocytes # Eosinophils # PT INR Sodium Potassium Carbon Dioxide 21.3 L Glucose 140 H POC Glucose (mg/dL) 155 H 163 H Hemoglobin A1c Plasma Lactic Acid Jonny Calcium 8.2 L Magnesium Total Bilirubin AST Total Protein Albumin Urine Blood Ur Leukocyte Esterase Urine RBC Urine WBC Urine Bacteria Hyaline Casts Urine Mucus - Diagnostic Findings Chest x-ray: image reviewed CT scan - chest: image reviewed Assessment and Plan Assessment: Difficulty in urination requiring insertion of the Raines catheter. Subsequently removed today Trace bilateral pleural effusion with development of mild right lower lobe subsegmental atelectasis. Similar spiculated focal opacity within the dependent portion of the left lower lobe favoring atelectasis. Underlying mass not excluded Right hemidiaphragm elevation History of enlarged prostate Hypertension Hyperlipidemia Chronic atrial fibrillation, anticoagulated with Eliquis Cognitive impairment Diabetes mellitus Lifelong non-smoker Plan: The patient was seen and evaluated CT scan of the chest, labs and medications reviewed Suspect atelectasis versus lung mass Recommend follow-up CT scan of the chest in 4 months Add incentive spirometer Encourage cough and deep breathing exercises Titrate down/off the FiO2 as tolerated Increase his activity as tolerated Urology and nephrology consults reviewed We will continue to follow and make further recommendations based on his clinical status I have personally seen and examined the patient, performed the documentation and the assessment and plan as written. Number of minutes spent on the visit: 20 Dictation was produced using [employer] dictation software. Please excuse any grammatical, word or spelling errors. Time with Patient: Greater than 30
--- NOTE | 2024-09-21 15:38 | P.PN ---
Subjective Progress Note Date: 09/21/24 Principal diagnosis: Reason for follow-up is UTI Patient is a 79-year-old male with past medical history significant for atrial fibrillation diabetes mellitus reflux hypertension osteoarthritis, patient be brought to the hospital concerning for difficulty urination, burning he did have a positive UA elevated white count concerning for UTI prompting this consultation. On today's evaluation that is a 09/21/2024, Patient is afebrile this morning patient denies having any chest pain shortness of breath or cough, the patient is currently on 2 L current oxygen, patient denies any abdominal pain no diarrhea no nausea no vomiting. Patient white count is down to 11.90, creatinine is 1.0 culture with gram- negative bacilli Objective - Vital Signs Vital signs: Vital Signs Temp 98.1 F 09/21/24 14:00 Pulse 98 09/21/24 14:00 Resp 18 09/21/24 14:00 BP 118/76 09/21/24 14:00 Pulse Ox 95 09/21/24 14:00 FiO2 Intake & Output 09/20/24 09/21/24 09/21/24 18:59 06:59 18:59 Intake Total 800 Output Total 800 700 Balance 800 -800 -700 Weight 93.894 kg Intake: Intake, IV Titration 400 Amount Sodium Chloride 0.9% 1, 400 000 ml @ 100 mls/hr IV . Q10H [facility] Rx#:[id number] Oral 400 Output: Urine 800 700 Uretheral (Raines) 700 Other: Voiding Method Indwelling Catheter Indwelling Catheter - Exam GENERAL DESCRIPTION: An elderly male lying in bed in no distress RESPIRATORY SYSTEM: Unlabored breathing , decreased breath sounds at bases HEART: S1 S2 regular rate and rhythm , ABDOMEN: Soft , no tenderness EXTREMITIES: No edema feet - Labs CBC & Chem 7: 09/21/24 03:25 09/21/24 03:25 Labs: Abnormal Lab Results - Last 24 Hours (Table) 09/20/24 09/20/24 09/21/24 Range/Units 17:01 21:00 03:25 WBC 11.90 H (4.50-10.00) X 10*3/uL RBC 3.93 L (4.40-5.60) X 10*6/uL Hgb 12.4 L (13.0-17.0) g/dL Hct 38.5 L (39.6-50.0) % MCV 98.0 H (80.0-97.0) FL Plt Count 138 L (140-440) X 10*3/uL Immature Gran # 0.05 H (0.00-0.04) X 10*3/uL Neutrophils # 9.31 H (1.80-7.70) X 10*3/uL Carbon Dioxide (21.6-31.8) mmol/L Glucose (70-110) mg/dL POC Glucose (mg/dL) 136 H 120 H (70-110) mg/dL Calcium (8.7-10.3) mg/dL 09/21/24 09/21/24 09/21/24 Range/Units 03:25 06:34 11:45 WBC (4.50-10.00) X 10*3/uL RBC (4.40-5.60) X 10*6/uL Hgb (13.0-17.0) g/dL Hct (39.6-50.0) % MCV (80.0-97.0) FL Plt Count (140-440) X 10*3/uL Immature Gran # (0.00-0.04) X 10*3/uL Neutrophils # (1.80-7.70) X 10*3/uL Carbon Dioxide 21.3 L (21.6-31.8) mmol/L Glucose 140 H (70-110) mg/dL POC Glucose (mg/dL) 155 H 163 H (70-110) mg/dL Calcium 8.2 L (8.7-10.3) mg/dL Microbiology - Last 24 Hours (Table) 09/19/24 14:41 Urine Culture - Preliminary Urine,Voided Gram Neg Bacilli 09/19/24 17:25 Blood Culture - Preliminary Blood Assessment and Plan (1) Penicillin allergy Current Visit: Yes Status: Acute Code(s): Z88.0 - ALLERGY STATUS TO PENICILLIN SNOMED Code(s): 36879831 (2) UTI (urinary tract infection) Current Visit: Yes Status: Acute Code(s): N39.0 - URINARY TRACT INFECTION, SITE NOT SPECIFIED SNOMED Code(s): 65068102 Plan: 1patient presented to hospital with difficulty urination did have a some dribbling pain and blood in the urine concerning for symptomatic UTI likely from tachycardia gram-negative pathogen 2-patient with a penicillin allergy that would limit the number of antibiotic safe to use 3-patient white count is trending down urine is growing gram-negative we will treat with Rocephin 2 g daily while waiting for the culture to finalize Dictation was produced using [employer] dictation software. please excuse any grammatical, word or spelling errors. Time with Patient: Less than 30
[2024-09-21] MEDS: LACTATED RINGERS 1,000 ML IV SCH (16:38)
[2024-09-21] MEDS: SENNOSIDES-DOCUSATE SODIUM 1 EACH TAB PO SCH (16:38)
[2024-09-21 16:41] LABS: Glucose,Whole Blood 135 mg/dL (70-110)
[2024-09-21 20:44] LABS: Glucose,Whole Blood 157 mg/dL (70-110)
[2024-09-22 06:14] LABS: Glucose,Whole Blood 141 mg/dL (70-110)
[2024-09-22 08:02] LABS: Basophils # (A) 0.06 X 10*3/uL (0.00-0.10); Basophils % (A) 0.7 %; Eosinophils # (A) 0.25 X 10*3/uL (0.04-0.35); Eosinophils % (A) 2.9 %; HCT 37.7 % (39.6-50.0); HGB 11.9 g/dL (13.0-17.0); Lymphocytes # (A) 1.59 X 10*3/uL (0.90-5.00); Lymphocytes % (A) 18.4 %; MCH 30.9 pg (27.0-32.0); MCHC 31.6 g/dL (32.0-37.0); MCV 97.9 FL (80.0-97.0); Mean Platelet Volume 10.5 FL (9.5-12.2); Monocytes # (A) 0.65 X 10*3/uL (0.20-1.00); Monocytes % (A) 7.5 %; NRBC Per 100 WBC 0 X 10*3/uL (0.00-0.01); Neutrophils # (A) 6.06 X 10*3/uL (1.80-7.70); Platelet Count 165 X 10*3/uL (140-440); RBC 3.85 X 10*6/uL (4.40-5.60); RDW 13.3 % (11.5-14.5); WBC 8.65 X 10*3/uL (4.50-10.00)
[2024-09-22 09:07] LABS: Blood Urea Nitrogen 16.4 mg/dL (9.0-27.0); Calcium 8.5 mg/dL (8.7-10.3); Carbon Dioxide 23.7 mmol/L (21.6-31.8); Chloride 105 mmol/L (96-109); Glucose 144 mg/dL (70-110); Potassium 4.6 mmol/L (3.5-5.5); Sodium 139 mmol/L (135-145)
--- NOTE | 2024-09-22 09:45 | P.PN ---
Subjective Progress Note Date: 09/22/24 The patient is in the hospital for urinary tract infection. A catheter was placed however he was not in retention. The catheter subsequently has been removed and he is voiding without difficulty. Objective - Vital Signs Vital signs: Vital Signs Temp 97.2 F L 09/22/24 07:45 Pulse 85 09/22/24 07:45 Resp 17 09/22/24 07:45 BP 115/78 09/22/24 07:45 Pulse Ox 98 09/22/24 07:45 FiO2 Intake & Output 09/21/24 09/22/24 09/22/24 18:59 06:59 18:59 Output Total 1400 1250 150 Balance -1400 -1250 -150 Output: Urine 1400 1250 150 Uretheral (Raines) 700 Other: Voiding Method Indwelling Catheter Toilet Urinal # Voids 1 4 # Bowel Movements 1 - Labs CBC & Chem 7: 09/22/24 03:05 09/22/24 03:05 Labs: Abnormal Lab Results - Last 24 Hours (Table) 09/21/24 09/21/24 09/21/24 Range/Units 11:45 16:35 20:42 RBC (4.40-5.60) X 10*6/uL Hgb (13.0-17.0) g/dL Hct (39.6-50.0) % MCV (80.0-97.0) FL MCHC (32.0-37.0) g/dL Glucose (70-110) mg/dL POC Glucose (mg/dL) 163 H 135 H 157 H (70-110) mg/dL Calcium (8.7-10.3) mg/dL 09/22/24 09/22/24 09/22/24 Range/Units 03:05 03:05 06:10 RBC 3.85 L (4.40-5.60) X 10*6/uL Hgb 11.9 L (13.0-17.0) g/dL Hct 37.7 L (39.6-50.0) % MCV 97.9 H (80.0-97.0) FL MCHC 31.6 L (32.0-37.0) g/dL Glucose 144 H (70-110) mg/dL POC Glucose (mg/dL) 141 H (70-110) mg/dL Calcium 8.5 L (8.7-10.3) mg/dL Microbiology - Last 24 Hours (Table) 09/19/24 17:25 Blood Culture - Preliminary Blood 09/19/24 14:41 Urine Culture - Preliminary Urine,Voided Gram Neg Bacilli Assessment and Plan Assessment: Impression: Urinary tract infection being treated with antibiotics. No evidence of urine retention. He should be seen in the office in follow-up.
[2024-09-22 10:52] LABS: Glucose,Whole Blood 165 mg/dL (70-110)
[2024-09-22] MEDS: APIXABAN 5 MG TAB PO SCH (12:16)
--- NOTE | 2024-09-22 12:39 | P.PN ---
Subjective Progress Note Date: 09/22/24 Principal diagnosis: Reason for follow-up is UTI Patient is a 79-year-old male with past medical history significant for atrial fibrillation diabetes mellitus reflux hypertension osteoarthritis, patient be brought to the hospital concerning for difficulty urination, burning he did have a positive UA elevated white count concerning for UTI prompting this consultation. On today's evaluation that is a 09/22/2024,the patient denies any fever or any chills, patient is breathing comfortably on room air, the patient denies chest pain shortness of breath and no significant cough, patient denies abdominal pain, no nausea vomiting or diarrhea. Patient white count normalized to 8.65, creatinine is 1.0 urine is growing gram- negative blood culture have been negative Objective - Vital Signs Vital signs: Vital Signs Temp 97.2 F L 09/22/24 07:45 Pulse 85 09/22/24 07:45 Resp 17 09/22/24 07:45 BP 115/78 09/22/24 07:45 Pulse Ox 98 09/22/24 07:45 FiO2 Intake & Output 09/21/24 09/22/24 09/22/24 18:59 06:59 18:59 Output Total 1400 1250 150 Balance -1400 -1250 -150 Output: Urine 1400 1250 150 Uretheral (Raines) 700 Other: Voiding Method Indwelling Catheter Toilet Toilet Urinal Urinal # Voids 1 4 1 # Bowel Movements 1 1 - Exam GENERAL DESCRIPTION: An elderly male lying in bed in no distress RESPIRATORY SYSTEM: Unlabored breathing , decreased breath sounds at bases HEART: S1 S2 regular rate and rhythm , ABDOMEN: Soft , no tenderness EXTREMITIES: No edema feet - Labs CBC & Chem 7: 09/22/24 03:05 09/22/24 03:05 Labs: Abnormal Lab Results - Last 24 Hours (Table) 09/21/24 09/21/24 09/22/24 Range/Units 16:35 20:42 03:05 RBC 3.85 L (4.40-5.60) X 10*6/uL Hgb 11.9 L (13.0-17.0) g/dL Hct 37.7 L (39.6-50.0) % MCV 97.9 H (80.0-97.0) FL MCHC 31.6 L (32.0-37.0) g/dL Glucose (70-110) mg/dL POC Glucose (mg/dL) 135 H 157 H (70-110) mg/dL Calcium (8.7-10.3) mg/dL 09/22/24 09/22/24 09/22/24 Range/Units 03:05 06:10 10:51 RBC (4.40-5.60) X 10*6/uL Hgb (13.0-17.0) g/dL Hct (39.6-50.0) % MCV (80.0-97.0) FL MCHC (32.0-37.0) g/dL Glucose 144 H (70-110) mg/dL POC Glucose (mg/dL) 141 H 165 H (70-110) mg/dL Calcium 8.5 L (8.7-10.3) mg/dL Microbiology - Last 24 Hours (Table) 09/19/24 17:25 Blood Culture - Preliminary Blood 09/19/24 14:41 Urine Culture - Preliminary Urine,Voided Gram Neg Bacilli Assessment and Plan (1) Penicillin allergy Current Visit: Yes Status: Acute Code(s): Z88.0 - ALLERGY STATUS TO PENICILLIN SNOMED Code(s): 43562120 (2) UTI (urinary tract infection) Current Visit: Yes Status: Acute Code(s): N39.0 - URINARY TRACT INFECTION, SITE NOT SPECIFIED SNOMED Code(s): 88074313 Plan: 1patient presented to hospital with difficulty urination did have a some dribbling pain and blood in the urine concerning for symptomatic UTI likely from tachycardia gram-negative pathogen 2-patient with a penicillin allergy that would limit the number of antibiotic safe to use 3-patient white count has normalized blood culture have been negative urine is growing gram-negative 4I will treat the patient with Rocephin while waiting for the culture to fi nalize Dictation was produced using [employer] dictation software. please excuse any grammatical, word or spelling errors. Time with Patient: Less than 30
--- NOTE | 2024-09-22 12:39 | P.PN ---
Subjective Progress Note Date: 09/22/24 Progress note Date of service 09/22/[address] Bustamante Location 480 bed 1 Patient seen and evaluated [id number] and he complains of his left knee with history of total knee arthroplasty and a little stiff and we will consult physical therapy for ambulation. No nausea no vomiting no hematuria Raines catheter has been discontinued Patient seen by Dr. Guzman and his laboratory today has been stable Vital sign temperature 97.2 F oral Is heart rate 85 with the atrial fibrillation irregular irregularities he had been seen by Dr. Mueller pulmonary and critical care and he recommended to have another CT for follow-up on the spiculated shadow in the left lower lung base in 3 to 4 months and we will be asking the patient to follow-up with him as outpatient for follow-up. Respiratory rate 17/min and his blood pressure is 115/78 with no medication of blood pressure his mean blood pressure 90. His oxygen 2 L/min and will obtain oxygen after ambulation without the oxygen to see if he needed any oxygen therapy at home or he becomes desaturated. Meanwhile we will obtain physical therapy. With the interval plan as well decrease IV fluid Tiki given open as well as ambulate as tolerated, and ask the infectious disease for oral antibiotic of his choice as well with the plan for discharge tomorrow if there is no fourth or treatment needed. HEENT exam on examination head was normocephalic atraumatic pupil was equal reactive conjunctiva was pink sclera was nonicteric with the patient hydration his hemoglobin dropped from 14-11.9 with the almost of the drop 2 g. With the underlying dehydration. The oropharynx was negative natural teeth Neck was supple no JVD no thyromegaly no lymphadenopathy trachea midline. Chest was normal breath sound bilaterally no wheezes no rhonchi's Heart irregular irregularities with the atrial fibrillation and he will be followed by his physician cardiology Dr. Quigley as outpatient. Abdomen soft positive bowel sound and he had stated that he had 4 bowel movement we will hold on milk of magnesia and continue with Colace or Senokot as. Extremities no edema. Pulses. Neurologically stable only arthritis was ambulation problem Psychiatry negative normal no depression or anxiety Assessment and plan: 1. Will DC the IV fluid and continue with the hep well 2. Leukocytosis resolved 3. Will ask infectious disease for oral antibiotic if needed and switching the IV antibiotic with the plan for discharge tomorrow 4. Future plan for repeat CT scan of the chest with the shadow of spiculated shadow on the left lower lung and to follow-up with Dr. Mueller 5. Hypokalemia corrected and his renal function is corrected, his BUN 16.4 creatinine is 1 with EGFR 77. 5. Diabetes mellitus has been fairly well-controlled without metformin with the suspicious of lactic acidosis secondary to metformin. Patient currently on insulin to scale with the starting point of the 150 which is rarely at that level. 6. ID for the infectious urinary sepsis indicating gram-negative bacilli no ID has been identified as organisms yet and will see Dr. Byers opinion. Infectious disease 7. Nephrology and urology note appreciated. 8. Mild anemia with hydration 9. Potassium and magnesium has been corrected Plan for ambulation and hep well and infectious disease oral antibiotic and possible discharge home tomorrow added to obtain physical therapy today, and was held Milk of Magnesia. Objective - Vital Signs Vital signs: Vital Signs Temp 97.2 F L 09/22/24 07:45 Pulse 85 09/22/24 07:45 Resp 17 09/22/24 07:45 BP 115/78 09/22/24 07:45 Pulse Ox 98 09/22/24 07:45 FiO2 Intake & Output 09/21/24 09/22/24 09/22/24 18:59 06:59 18:59 Output Total 1400 1250 150 Balance -1400 -1250 -150 Output: Urine 1400 1250 150 Uretheral (Raines) 700 Other: Voiding Method Indwelling Catheter Toilet Toilet Urinal Urinal # Voids 1 4 1 # Bowel Movements 1 1 - Labs CBC & Chem 7: 09/22/24 03:05 09/22/24 03:05 Labs: Abnormal Lab Results - Last 24 Hours (Table) 09/21/24 09/21/24 09/22/24 Range/Units 16:35 20:42 03:05 RBC 3.85 L (4.40-5.60) X 10*6/uL Hgb 11.9 L (13.0-17.0) g/dL Hct 37.7 L (39.6-50.0) % MCV 97.9 H (80.0-97.0) FL MCHC 31.6 L (32.0-37.0) g/dL Glucose (70-110) mg/dL POC Glucose (mg/dL) 135 H 157 H (70-110) mg/dL Calcium (8.7-10.3) mg/dL 09/22/24 09/22/24 09/22/24 Range/Units 03:05 06:10 10:51 RBC (4.40-5.60) X 10*6/uL Hgb (13.0-17.0) g/dL Hct (39.6-50.0) % MCV (80.0-97.0) FL MCHC (32.0-37.0) g/dL Glucose 144 H (70-110) mg/dL POC Glucose (mg/dL) 141 H 165 H (70-110) mg/dL Calcium 8.5 L (8.7-10.3) mg/dL Microbiology - Last 24 Hours (Table) 09/19/24 17:25 Blood Culture - Preliminary Blood 09/19/24 14:41 Urine Culture - Preliminary Urine,Voided Gram Neg Bacilli
--- NOTE | 2024-09-22 14:26 | P.PN ---
Subjective Progress Note Date: 09/22/24 This is a pleasant 79-year-old male patient with a known history of diabetes mellitus, hypertension, enlarged prostate. He presented here to the emergency room on September 19, 2024 with complaints of difficulty in urinating for a few days prior. But he did have some small amounts of blood-tinged urine. He did have a catheter placed and was being followed by urology. He had a CT scan of the chest done 09/21/2024 which revealed trace bilateral pleural effusions with development of meant of mid right lower lobe subsegmental atelectasis. There was some spiculated focal opacity within the dependent portion of the left lower lobe favored to be atelectasis however underlying mass was not excluded and we w ere consulted today for the same. White count 11.9. Hemoglobin 12.4. Platelets 138. Sodium 136. Potassium 4.5. Bicarb 21. BUN 18. Creatinine 1.0. Glucose 140. He is seen today in consultation on the regular medical floor. He is resting in bed. Awake and alert in no acute distress. He denies any shortness of breath, cough or congestion. He is a lifelong non-smoker. He is maintaining O2 saturation in the mid 90s on 2 L/min per nasal cannula. Afebrile. Hemodynamically stable. The patient is seen today September 22, 2024 in follow-up on the regular medical floor. He is currently resting comfortably in bed. Awake and alert in no acute distress. He denies any worsening shortness of breath, cough or congestion. Maintaining good O2 saturations in the 90s on 2 L/min per nasal cannula. Urine cultures positive for Klebsiella pneumoniae. Blood culture revealing no growth. White count 8.6. Hemoglobin 11.9. Platelets 165. Sodium 139. Potassium 4.6. Bicarb 24. BUN 16. Creatinine 1.0. Glucose 144. He remains anticoagulated with Eliquis. Antibiotics in the form of ceftriaxone. Objective - Vital Signs Vital signs: Vital Signs Temp 97.6 F 09/22/24 14:00 Pulse 100 09/22/24 14:00 Resp 18 09/22/24 14:00 BP 127/82 09/22/24 14:00 Pulse Ox 99 09/22/24 14:00 FiO2 Intake & Output 09/21/24 09/22/24 09/22/24 18:59 06:59 18:59 Output Total 1400 1250 150 Balance -1400 -1250 -150 Output: Urine 1400 1250 150 Uretheral (Raines) 700 Other: Voiding Method Indwelling Catheter Toilet Toilet Urinal Urinal # Voids 1 4 1 # Bowel Movements 1 1 - Exam GENERAL EXAM: Alert, pleasant 79-year-old male, resting comfortably in bed, on 2 L nasal cannula, in no apparent distress. HEAD: Normocephalic. EYES: Normal reaction of pupils, equal size. NOSE: Clear with pink turbinates. THROAT: No erythema or exudates. NECK: No masses, no JVD. CHEST: No chest wall deformity. LUNGS: Equal air entry with no crackles, wheeze, rhonchi or dullness. CVS: S1 and S2 normal with no audible murmur, regular rhythm. ABDOMEN: No hepatosplenomegaly, normal bowel sounds, no guarding or rigidity. SPINE: No scoliosis or deformity SKIN: No rashes CENTRAL NERVOUS SYSTEM: No focal deficits, tone is normal in all 4 extremities. EXTREMITIES: There is no peripheral edema. No clubbing, no cyanosis. Peripheral pulses are intact. - Labs CBC & Chem 7: 09/22/24 03:05 09/22/24 03:05 Labs: Abnormal Lab Results - Last 24 Hours (Table) 09/21/24 09/21/24 09/22/24 Range/Units 16:35 20:42 03:05 RBC 3.85 L (4.40-5.60) X 10*6/uL Hgb 11.9 L (13.0-17.0) g/dL Hct 37.7 L (39.6-50.0) % MCV 97.9 H (80.0-97.0) FL MCHC 31.6 L (32.0-37.0) g/dL Glucose (70-110) mg/dL POC Glucose (mg/dL) 135 H 157 H (70-110) mg/dL Calcium (8.7-10.3) mg/dL 09/22/24 09/22/24 09/22/24 Range/Units 03:05 06:10 10:51 RBC (4.40-5.60) X 10*6/uL Hgb (13.0-17.0) g/dL Hct (39.6-50.0) % MCV (80.0-97.0) FL MCHC (32.0-37.0) g/dL Glucose 144 H (70-110) mg/dL POC Glucose (mg/dL) 141 H 165 H (70-110) mg/dL Calcium 8.5 L (8.7-10.3) mg/dL Microbiology - Last 24 Hours (Table) 09/19/24 14:41 Urine Culture - Final Urine,Voided Klebsiella pneumoniae 09/19/24 17:25 Blood Culture - Preliminary Blood Assessment and Plan Assessment: Difficulty in urination requiring insertion of the Raines catheter. Subsequently removed Acute urinary tract infection secondary to Klebsiella pneumoniae Trace bilateral pleural effusion with development of mild right lower lobe subsegmental atelectasis. Similar spiculated focal opacity within the dependent portion of the left lower lobe favoring atelectasis. Underlying mass not excluded Right hemidiaphragm elevation History of enlarged prostate Hypertension Hyperlipidemia Chronic atrial fibrillation, anticoagulated with Eliquis Cognitive impairment Diabetes mellitus Lifelong non-smoker Plan: The patient was seen and evaluated Microbiology, labs and medications reviewed Urine culture positive for Klebsiella pneumoniae Currently on ceftriaxone Continue incentive spirometer Encourage cough and deep breathing exercises Titrate down/off the FiO2 as tolerated Increase his activity as tolerated Recommend follow-up CT scan of the chest in 4 months We will continue to follow I have personally seen and examined the patient, performed the documentation and the assessment and plan as written. Number of minutes spent on the visit: 10 Dictation was produced using [employer] dictation software. Please excuse any grammatical, word or spelling errors.
[2024-09-22 15:59] LABS: Glucose,Whole Blood 139 mg/dL (70-110)
[2024-09-22 21:05] LABS: Glucose,Whole Blood 147 mg/dL (70-110)
--- NOTE | 2024-09-22 21:44 | P.PN ---
Subjective Patient is seen for follow-up. Currently being treated for UTI No significant complaints today Good urine output Serum creatinine at 1.0 mg/dL. Objective - Vital Signs Vital signs: Vital Signs Temp 98.3 F 09/22/24 19:53 Pulse 100 09/22/24 19:53 Resp 17 09/22/24 19:53 BP 131/87 09/22/24 19:53 Pulse Ox 98 09/22/24 19:53 FiO2 Intake & Output 09/22/24 09/22/24 09/23/24 06:59 18:59 06:59 Output Total 1250 350 Balance -1250 -350 Output: Urine 1250 350 Other: Voiding Method Toilet Toilet Toilet Urinal Urinal Urinal # Voids 4 1 # Bowel Movements 1 - Exam Patient is awake, comfortable, no acute distress Alert oriented x 3 Examination of the heart S1 and S2 Examination of the lungs bilateral breath sounds are heard Abdomen is soft nontender Examination of lower extremities shows no evidence of edema 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 exam 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 intact - Labs CBC & Chem 7: 09/22/24 03:05 09/22/24 03:05 Labs: Abnormal Lab Results - Last 24 Hours (Table) 09/19/24 09/22/24 09/22/24 Range/Units 15:01 03:05 03:05 RBC 3.85 L (4.40-5.60) X 10*6/uL Hgb 11.9 L (13.0-17.0) g/dL Hct 37.7 L (39.6-50.0) % MCV 97.9 H (80.0-97.0) FL MCHC 31.6 L (32.0-37.0) g/dL Glucose 144 H (70-110) mg/dL POC Glucose (mg/dL) (70-110) mg/dL Calcium 8.5 L (8.7-10.3) mg/dL Total PSA 4.5 H (<=4.0) ng/mL 09/22/24 09/22/24 09/22/24 Range/Units 06:10 10:51 15:57 RBC (4.40-5.60) X 10*6/uL Hgb (13.0-17.0) g/dL Hct (39.6-50.0) % MCV (80.0-97.0) FL MCHC (32.0-37.0) g/dL Glucose (70-110) mg/dL POC Glucose (mg/dL) 141 H 165 H 139 H (70-110) mg/dL Calcium (8.7-10.3) mg/dL Total PSA (<=4.0) ng/mL 09/22/24 Range/Units 21:03 RBC (4.40-5.60) X 10*6/uL Hgb (13.0-17.0) g/dL Hct (39.6-50.0) % MCV (80.0-97.0) FL MCHC (32.0-37.0) g/dL Glucose (70-110) mg/dL POC Glucose (mg/dL) 147 H (70-110) mg/dL Calcium (8.7-10.3) mg/dL Total PSA (<=4.0) ng/mL Microbiology - Last 24 Hours (Table) 09/19/24 14:41 Urine Culture - Final Urine,Voided Klebsiella pneumoniae 09/19/24 17:25 Blood Culture - Preliminary Blood Assessment and Plan Assessment: 1. Urinary tract infection maintained on IV antibiotics 2. Volume depletion maintained on IV fluids 3. History of type 2 diabetes with UA showing no evidence of proteinuria 4. Mild metabolic acidosis most likely related to IV fluids Plan: Encourage increased oral intake Continue with antibiotics Abnormality on ultrasound is unremarkable with no major concern for significant underlying nephrological pathology.
[2024-09-23 06:52] LABS: Glucose,Whole Blood 150 mg/dL (70-110)
[2024-09-23 10:29] LABS: Basophils # (A) 0.04 10*3/uL (0.00-0.10); Basophils % (A) 0.7 %; Eosinophils # (A) 0.25 10*3/uL (0.04-0.35); Eosinophils % (A) 4.4 %; HGB 12.8 g/dL (13.0-17.0); Lymphocytes # (A) 1.12 10*3/uL (0.90-5.00); Lymphocytes % (A) 19.5 %; MCH 31.9 pg (27.0-32.0); MCHC 33.7 g/dL (32.0-37.0); MCV 94.8 fL (80.0-97.0); Mean Platelet Volume 9.1 fL (9.5-12.2); Monocytes % (A) 8.7 %; Neutrophils # (A) 3.79 10*3/uL (1.80-7.70); Neutrophils % (A) 66.2 %; Platelet Count 153 10*3/uL (140-440); RBC 4.01 10*6/uL (4.40-5.60); RDW 13.1 % (11.5-14.5); WBC 5.73 10*3/uL (4.50-10.00)
[2024-09-23 10:46] LABS: African American GFR (CKD) >90 (>60 ml/min/1.73 sqM); Anion Gap 8 mmol/L; Blood Urea Nitrogen 15 mg/dL (9-20); Calcium 8.9 mg/dL (8.4-10.2); Carbon Dioxide 27 mmol/L (22-30); Chloride 103 mmol/L (98-107); Glucose 169 mg/dL (74-99); Non-African American GFR(CKD) 87 (>60 ml/min/1.73 sqM); Potassium 4.4 mmol/L (3.5-5.1); Sodium 138 mmol/L (137-145)
[2024-09-23 11:51] LABS: Glucose,Whole Blood 170 mg/dL (70-110)
[2024-09-23] MEDS: REPAGLINIDE 1 MG TAB PO PRN (12:10)
--- NOTE | 2024-09-23 14:51 | P.CRDCN ---
History of Present Illness Consult date: 09/23/24 Reason for Consult (text): A-fib with RVR History of present illness: This is a 79-year-old male patient of Dr. Liz with past medical history of persistent atrial fibrillation on Eliquis, hypertension, dyslipidemia, CAD multivessel documented on coronary angiography, moderate mitral insufficiency. We have been asked to evaluate the patient for A-fib with RVR. Patient states that he came into the hospital because he was unable to urinate. He also states he had a little bit of dysuria. Patient denies any palpitations, no chest pain no dizziness. No syncopal episodes. He denies PND. No cough or fever no sputum production. He denies lower extremity edema. Blood pressure 122/72, heart rate in the 90s, pulse ox 99% on 2 L nasal cannula. Telemetry reviewed and patient heart rate has episodes of 30 to 60 bpm. -EKG: Obtained on 09/19: Atrial fibrillation 107 bpm with incomplete right bundle branch block. -Chest x-ray: 09/19: No acute process. -CT chest: Trace bilateral pleural effusions with development of mild right lower lobe subsegmental atelectasis. Some spiculated focal opacity within the dependent portion of the left lower lobe. Atelectasis favored over mass. -CT abdomen and pelvis: No acute process. -Laboratory studies: WBC 5.7, hemoglobin 12.8, electrolytes and renal function are normal. Initial lactic acid 2.3 and repeat was 0.9. proBNP 4070. -Home cardiac medications: Atenolol 50 mg daily, spironolactone 12.5 mg daily, Eliquis 5 mg twice daily, atorvastatin 20 mg daily, ferrous sulfate 325 mg daily. -Echocardiogram performed 03/18/2024 revealed EF 47%, moderate TR, moderate MR, RVSP 59 mmHg. -Cardiac catheterization performed 05/03/2019 revealed 50% proximal diagonal disease, 20% proximal circumflex disease, 20% mid RCA disease. -Lexiscan Cardiolite stress test performed 12/05/2022 revealed EF 73% and probably normal. Review Of Systems: At the time of my exam: CONSTITUTIONAL: Denies fever or chills. HEENT: Denies blurred vision, vision changes, or eye pain. Denies hemoptysis CARDIOVASCULAR: Denies chest pain. Denies orthopnea. Denies PND. Denies palpitations RESPIRATORY: Denies shortness of breath. GASTROINTESTINAL: Denies abdominal pain. Denies nausea or vomiting. HEMATOLOGIC: Denies bleeding disorders. GENITOURINARY: Denies any blood in urine. SKIN: Denies puritis. Denies rash. Physical examination: Gen: This is 79-year-old male in no acute distress VS: reviewed HEENT: Head is atraumatic, normocephalic. Pupils equal, round. Sclerae is anicteric. NECK: Supple. No JVD. LUNGS: Clear to auscultation. No wheezes or rhonchi. No intercostal retractions. HEART: Irregular rate and rhythm. 2/6 holosystolic murmur at the apex. ABDOMEN: Soft No tenderness. EXTREMITIES: Mild pedal edema. No calf tenderness. NEUROLOGICAL: Patient is awake, alert and oriented x3. Assessment: Permanent atrial fibrillation with episodes of RVR Urinary retention Acute urinary tract infection Hypertension Hyperlipidemia Diabetes mellitus type 2 Plan: Continue patient's home cardiac medications Increase atenolol to 50 mg in the morning and 25 mg in the evening No further cardiac workup is planned at this time Further recommendations to follow based upon clinical course Thank you kindly for this consultation. Nurse practitioner note has been reviewed, I agree with documented findings and plan of care. Patient was seen and examined. Past Medical History Past Medical History: Atrial Fibrillation, Diabetes Mellitus, GERD/Reflux, Hypertension, Osteoarthritis (OA) Additional Past Medical History / Comment(s): varicose veins, using walker History of Any Multi-Drug Resistant Organisms: None Reported Past Surgical History: Joint Replacement, Tonsillectomy Additional Past Surgical History / Comment(s): RIGHT TOTAL KNEE, Past Anesthesia/Blood Transfusion Reactions: No Reported Reaction Past Psychological History: No Psychological Hx Reported Past Alcohol Use History: None Reported Past Drug Use History: None Reported - Past Family History Father Family Medical History: Cancer Sister(s) Family Medical History: Cancer Brother(s) Family Medical History: Cancer Daughter(s) Family Medical History: Cancer Mother Family Medical History: Cancer Medications and Allergies Home Medications Medication Instructions Recorded Confirmed Type Tamsulosin [Flomax] 0.4 mg PO DAILY 04/26/16 09/19/24 History Apixaban [Eliquis] 5 mg PO BID 05/04/19 09/19/24 History atenoloL [Tenormin] 50 mg PO DAILY 05/04/19 09/19/24 History Atorvastatin [Lipitor] 20 mg PO DAILY 09/19/24 09/19/24 History Cholecalciferol (Vitamin D3) 50 mcg PO DAILY 09/19/24 09/19/24 History [Vitamin D3 (50 Mcg = 2000 Iu)] Donepezil [Aricept] 5 mg PO HS 09/19/24 09/19/24 History Ferrous Sulfate [Feosol] 325 mg PO DAILY 09/19/24 09/19/24 History Fexofenadine HCl [Alma Allergy] 180 mg PO DAILY 09/19/24 09/19/24 History Spironolactone [Aldactone] 12.5 mg PO DAILY 09/19/24 09/19/24 History Repaglinide [Prandin] 1 mg PO BID MDD 2 09/23/24 History Allergies Allergy/AdvReac Type Severity Reaction Status Date / Time Penicillins Allergy Rash/Hives,throat Verified 09/19/24 18:25 swelling Physical Exam Vitals: Vital Signs Temp Pulse Resp BP Pulse Ox 09/23/24 07:18 97.4 F L 95 17 122/72 99 09/23/24 01:01 97.9 F 96 17 120/71 98 09/22/24 19:53 98.3 F 100 17 131/87 98 09/22/24 14:00 97.6 F 100 18 127/82 99 Intake and Output 09/22/24 09/23/24 09/23/24 22:59 06:59 14:59 Output Total 200 700 Balance -200 -700 Output: Urine 200 700 Other: Voiding Method Toilet Urinal # Voids 1 1 # Bowel Movements 1 1 Results 09/23/24 10:11 09/23/24 10:11 CBC 09/23/24 Range/Units 10:11 WBC 5.73 (4.50-10.00) 10*3/uL RBC 4.01 L (4.40-5.60) 10*6/uL Hgb 12.8 L (13.0-17.0) g/dL Hct 38.0 L (39.6-50.0) % Plt Count 153 (140-440) 10*3/uL Comprehensive Metabolic Panel 09/23/24 Range/Units 10:11 Sodium 138 (137-145) mmol/L Potassium 4.4 (3.5-5.1) mmol/L Chloride 103 (98-107) mmol/L Carbon Dioxide 27 (22-30) mmol/L BUN 15 (9-20) mg/dL Creatinine 0.78 (0.66-1.25) mg/dL Glucose 169 H (74-99) mg/dL Calcium 8.9 (8.4-10.2) mg/dL Current Medications Generic Name Dose Route Start Last Admin Trade Name Freq PRN Reason Stop Dose Admin Acetaminophen 650 mg 09/20/24 16:21 09/22/24 20:51 Acetaminophen Tab 325 Mg Tab PO 650 mg Q8HR PRN Administration Fever and/ or Pain Apixaban 5 mg 09/22/24 10:00 09/23/24 08:15 Apixaban 5 Mg Tab PO 5 mg BID TONY Administration Protocol Atenolol 50 mg 09/20/24 09:00 09/23/24 08:15 Atenolol 50 Mg Tab PO 50 mg DAILY TONY Administration Atorvastatin Calcium 20 mg 09/20/24 09:00 09/23/24 08:15 Atorvastatin 20 Mg Tab PO 20 mg DAILY TONY Administration Cholecalciferol 50 mcg 09/20/24 09:00 09/23/24 08:16 Cholecalciferol 25 Mcg (1000 Iu) Tablet PO 50 mcg DAILY TONY Administration Donepezil HCl 5 mg 09/19/24 21:00 09/22/24 20:48 Donepezil 5 Mg Tab PO 5 mg HS TONY Administration Ceftriaxone Sodium 2 gm/ 50 mls @ 100 mls/hr 09/20/24 12:00 09/23/24 12:10 Sodium Chloride IVPB 100 mls/hr Q24H TONY Administration Protocol Naloxone HCl 0.2 mg 09/19/24 17:26 Naloxone 0.4 Mg/Ml 1 Ml Vial IV Q2M PRN Opioid Reversal Repaglinide 1 mg 09/23/24 09:05 09/23/24 12:10 Repaglinide 1 Mg Tab PO 1 mg AC-BID PRN Administration hyperglycemia Senna/Docusate Sodium 1 each 09/21/24 13:15 09/23/24 08:15 Sennosides-Docusate Sodium 1 Each Tab PO 1 each DAILY TONY Administration Sodium Chloride 10 ml 09/22/24 12:45 09/23/24 08:16 Sodium Chloride 0.9% Flush 10 Ml Syringe IV 10 ml BID TONY Administration Tamsulosin HCl 0.4 mg 09/20/24 09:00 09/23/24 08:15 Tamsulosin 0.4 Mg Cap.Er.24h PO 0.4 mg DAILY TONY Administration Intake and Output 09/22/24 09/23/24 09/23/24 22:59 06:59 14:59 Output Total 200 700 Balance -200 -700 Output: Urine 200 700 Other: Voiding Method Toilet Urinal # Voids 1 1 # Bowel Movements 1 1 09/23/24 10:11 09/23/24 10:11
--- NOTE | 2024-09-23 16:40 | P.PN ---
Subjective Progress Note Date: 09/23/24 Principal diagnosis: Reason for follow-up is UTI Patient is a 79-year-old male with past medical history significant for atrial fibrillation diabetes mellitus reflux hypertension osteoarthritis, patient be brought to the hospital concerning for difficulty urination, burning he did have a positive UA elevated white count concerning for UTI prompting this consultation. On today's evaluation that is a 09/23/2024,the patient remains to be afebrile, patient is on room air not requiring supplemental oxygen and denies any shortness of breath no chest pain or cough.Patient denies having any nausea or vomiting, no abdominal pain and no diarrhea, mention feeling better wants to go home. The patient white count is 5.73, creatinine 0.78 culture with Klebsiella pneumoniae sensitive to ceftriaxone blood culture have been negative Objective - Vital Signs Vital signs: Vital Signs Temp 97.4 F L 09/23/24 07:18 Pulse 95 09/23/24 07:18 Resp 17 09/23/24 07:18 BP 122/72 09/23/24 07:18 Pulse Ox 99 09/23/24 07:18 FiO2 Intake & Output 09/22/24 09/23/24 09/23/24 18:59 06:59 18:59 Output Total 350 700 Balance -350 -700 Output: Urine 350 700 Other: Voiding Method Toilet Toilet Urinal Urinal # Voids 1 1 # Bowel Movements 1 1 - Exam GENERAL DESCRIPTION: An elderly male lying in bed in no distress RESPIRATORY SYSTEM: Unlabored breathing , decreased breath sounds at bases HEART: S1 S2 regular rate and rhythm , ABDOMEN: Soft , no tenderness EXTREMITIES: No edema feet - Labs CBC & Chem 7: 09/23/24 10:11 09/23/24 10:11 Labs: Abnormal Lab Results - Last 24 Hours (Table) 09/19/24 09/22/24 09/22/24 Range/Units 15:01 15:57 21:03 RBC (4.40-5.60) 10*6/uL Hgb (13.0-17.0) g/dL Hct (39.6-50.0) % MPV (9.5-12.2) fL Glucose (74-99) mg/dL POC Glucose (mg/dL) 139 H 147 H (70-110) mg/dL Total PSA 4.5 H (<=4.0) ng/mL 09/23/24 09/23/24 09/23/24 Range/Units 06:51 10:11 10:11 RBC 4.01 L (4.40-5.60) 10*6/uL Hgb 12.8 L (13.0-17.0) g/dL Hct 38.0 L (39.6-50.0) % MPV 9.1 L (9.5-12.2) fL Glucose 169 H (74-99) mg/dL POC Glucose (mg/dL) 150 H (70-110) mg/dL Total PSA (<=4.0) ng/mL 09/23/24 Range/Units 11:50 RBC (4.40-5.60) 10*6/uL Hgb (13.0-17.0) g/dL Hct (39.6-50.0) % MPV (9.5-12.2) fL Glucose (74-99) mg/dL POC Glucose (mg/dL) 170 H (70-110) mg/dL Total PSA (<=4.0) ng/mL Microbiology - Last 24 Hours (Table) 09/19/24 17:25 Blood Culture - Preliminary Blood 09/19/24 14:41 Urine Culture - Final Urine,Voided Klebsiella pneumoniae Assessment and Plan (1) Penicillin allergy Current Visit: Yes Status: Acute Code(s): Z88.0 - ALLERGY STATUS TO PENICILLIN SNOMED Code(s): 09421801 (2) UTI (urinary tract infection) Current Visit: Yes Status: Acute Code(s): N39.0 - URINARY TRACT INFECTION, SITE NOT SPECIFIED SNOMED Code(s): 48534514 Plan: 1patient presented to hospital with difficulty urination did have a some dribbling pain and blood in the urine concerning for symptomatic UTI likely from tachycardia gram-negative pathogen 2-patient with a penicillin allergy that would limit the number of antibiotic safe to use 3-patient white count has normalized blood culture have been negative urine is growing Klebsiella that is sensitive to ceftriaxone 4patient clinically improved on Rocephin will finish therapy with oral Ceftin prescription sent to the pharmacy Dictation was produced using [employer] dictation software. please excuse any gramm atical, word or spelling errors. Time with Patient: Less than 30
--- NOTE | 2024-09-23 17:17 | P.DS ---
Providers Date of admission: 09/19/24 17:26 Expected date of discharge: 09/23/24 Attending physician: Odilon Bustamante Consults: 09/19/24 17:26 Consult Physician Urgent Consulting Provider: Ervin Huber Consult Reason/Comments: UTI with sepsis Do you want consulting provider notified?: Yes Consult Physician Urgent Consulting Provider: Keely Byers Consult Reason/Comments: UTI with sepsis Do you want consulting provider notified?: Yes 09/20/24 09:40 Consult Physician Urgent Consulting Provider: Penelope Guzman Consult Reason/Comments: perinephric sweat per radiol,hematuria,uti Do you want consulting provider notified?: Yes 09/21/24 12:33 Consult Physician Urgent Consulting Provider: Lloyd Conner Consult Reason/Comments: Left lower lung field spiculated mass by the CT Do you want consulting provider notified?: Yes 09/23/24 13:05 Consult Physician Urgent Consulting Provider: Lio Liz Consult Reason/Comments: Afib with RVR with activity Do you want consulting provider notified?: Yes Primary care physician: Odilon Bustamante Discharge summary Date of service 09/23/2024 Location 480 bed 1 Final diagnosis 1. Acute urosepsis with the leukocytosis hypotension and UTI with Klebsiella pneumonia sensitive to ceftriaxone. 2. Hematuria with the possibility of underlying cystitis or other source of gross hematuria for 3 days prior to the admission 3. Perinephric sweat sign per ultrasound 4. Acute kidney injury with dehydration. 5. Chronic atrial fibrillation. 6. Chronic congestive heart failure with impairment of the ejection fraction. 7. Hypotension recovered with a history of hypertension 8. Pulmonary hypertension. 9. Fluctuating atrial fibrillation with temporary RVR seen by the events solutions consultant. With the increase of atenolol for control the heart rate. 10. Lactic acidosis on admission with the underlying use of metformin has been discontinued. 11. Diabetes mellitus type 2 with hyperglycemia has been fairly well-controlled with insulin to scale, on discharge insulin discontinued and he is on Prandin 1 mg twice a day to be followed as outpatient with the stable hemoglobin A1c. 12. Cognitive function impairment currently stable 13. Advanced arthritis of the knee with the left total knee arthroplasty in the past and uses a walker. #14 patient initially treated with hypoxia with walking to 80% and on 2 later 95%, order for home oxygen given to the patient for 2 L and to be within 18 to 24 hours. Allergy to penicillin Consulting physician: 1. Dr. Byers infectious disease 2. Dr. Severiano Alexander urology 3. Dr. Guzman nephrology 4. Physical therapy 5. freight team associate. Seen by PA, she did not mention who is the attending. 6. Dr. Mueller, I will E pulmonary and critical care for the underlying left lower lung field spiculated shadow. 7. Dilatation. Medication has been changed to effect his current problem, Eliquis has been discontinued until bleeding stopped and the urinary tract and then subsequently resumed was replaced at that time with heparin subcu every 8 hour Because of the metabolic acidosis and lactic acidosis metformin has been discontinued and patient was monitored with insulin to scale and his hemoglobin A1c was stable and changed to Pasha 1 mg twice daily. Patient hydrated during his presence in the hospital with protocol with the lactic acidosis and 12 normalized and subsequently gradual decrease in the IV fluid and changed from normal saline to lactated Ringer per Dr. Guzman. And recovery of his renal function and EGFR recovered as well and subsequently resumed his Eliquis no further bleeding on discharge from the urinary tract. Patient required oxygen supplementation on the discharge patient will be ambulated as requested from nursing staff and checking the oxygen saturation if it is below 88 we will supplement with oxygen at home i.e. if he desaturated. Patient advised to follow-up with Dr. Liz primary events solutions consultant with his atrial fibrillation., Also follow-up with other consulting physician and for further evaluation for the hematuria will be followed by the urology associate as well. Patient presentation to the ER: Weakness and bloody urine grossly bloody for the 2 days prior to the admission to the ER with generalized weakness. Patient admitted to the hospital after he have waited in the ER room for more than 36-hour and at that time he was managed with the revision of the lactic acid to normal after hydration and subsequently he admitted to the front desk monitor floor on 4 increase*. Patient laboratory today on discharge 5.73 WBC, on admission was 25,000. His hemoglobin dropped from 14-12.8 with almost 2 g due to hydration and he was dehydrated, MCV 94 today and platelet count 153. The chemistry: Sodium 138 potassium 4.4 on the current medication and chloride 103, and carbon dioxide 27, BUN 15, creatinine 0.78, and glucose venous 169, his GFR more than 90., Calcium 8.9. Oxygen with a saturation is 84 HERE okay to order oxygen here ambulatory DVT surgical added to get patient is on 2 L correct at 2 L he was at 95% with oxygen here at 80 yeah okay to liter per minute home oxygen and portable okay. Patient as mentioned desaturated to 80% without oxygen and on walking or exertion. New On exam on discharge home temperature 97.6 F oral, pulse is 96 and cardiology group with the PA increased his atenolol Respiratory rate 17 and blood pressure 117/82. And oxygen saturation on 2 L 95%. On exam clinically Patient is conscious alert oriented x 3 he has occasional forgetfulness with cognitive function impairment Head was normocephalic atraumatic and the pupil was equal reactive conjunctiva was pink sclera was nonicteric. Oropharynx natural teeth Hearing is normal Neck was supple no JVD no thyromegaly no lymphadenopathy trachea midline. 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 Patient has also impaired ejection fraction with the history of pulmonary hypertension and ejection fraction was around 40 to 45% and he will be following with the Dr. Liz his events solutions consultant as outpatient. Abdomen soft positive bowel sound and no tenderness in 4 quadrant and extremities no edema and positive pulses. Psychiatry stable Neurology stable no lateralizing sign Plan patient stable general condition to be discharged today and he may have his oxygen and could be the portable oxygen tomorrow will not be needed for tonight. Patient to be followed with the above consulting physician mainly in the cardiology and the pulmonary and the urology for for further investigation if needed. I will see him next week in my office for further evaluation. Patient Condition at Discharge: Stable Plan - Discharge Summary Discharge Rx Participant: Yes New Discharge Prescriptions: New cefuroxime axetiL [Ceftin] 500 mg PO BID #14 tab No Action Tamsulosin [Flomax] 0.4 mg PO DAILY Apixaban [Eliquis] 5 mg PO BID atenoloL [Tenormin] 50 mg PO DAILY Donepezil [Aricept] 5 mg PO HS Spironolactone [Aldactone] 12.5 mg PO DAILY Fexofenadine HCl [Alma Allergy] 180 mg PO DAILY Ferrous Sulfate [Feosol] 325 mg PO DAILY Cholecalciferol (Vitamin D3) [Vitamin D3 (50 Mcg = 2000 Iu)] 50 mcg PO DAILY Atorvastatin [Lipitor] 20 mg PO DAILY Repaglinide [Prandin] 1 mg PO BID MDD 2 Discharge Medication List Tamsulosin [Flomax] 0.4 mg PO DAILY 04/26/16 [History] Apixaban [Eliquis] 5 mg PO BID 05/04/19 [History] atenoloL [Tenormin] 50 mg PO DAILY 05/04/19 [History] Atorvastatin [Lipitor] 20 mg PO DAILY 09/19/24 [History] Cholecalciferol (Vitamin D3) [Vitamin D3 (50 Mcg = 2000 Iu)] 50 mcg PO DAILY 09/19/24 [History] Donepezil [Aricept] 5 mg PO HS 09/19/24 [History] Ferrous Sulfate [Feosol] 325 mg PO DAILY 09/19/24 [History] Fexofenadine HCl [Alma Allergy] 180 mg PO DAILY 09/19/24 [History] Spironolactone [Aldactone] 12.5 mg PO DAILY 09/19/24 [History] Repaglinide [Prandin] 1 mg PO BID MDD 2 09/23/24 [History] cefuroxime axetiL [Ceftin] 500 mg PO BID #14 tab 09/23/24 [Rx] Follow up Appointment(s)/Referral(s): Lloyd Conner MD [STAFF PHYSICIAN] - 1 Week Lio Liz MD [STAFF PHYSICIAN] - 1 Week Severiano Harley MD [STAFF PHYSICIAN] - 1 Week Odilon Bustamante MD [Primary Care Provider] - 1-2 days Discharge Disposition: HOME SELF-CARE
[2024-09-23 17:18] LABS: Glucose,Whole Blood 102 mg/dL (70-110)
[2024-09-23 20:25] LABS: Glucose,Whole Blood 166 mg/dL (70-110)
[2024-09-23] MEDS: atenoloL 25 MG TAB PO SCH (20:41)
[2024-09-24 06:32] LABS: Glucose,Whole Blood 140 mg/dL (70-110)
[2024-09-24 08:35] VITALS: RESP 24
[2024-09-24 08:38] VITALS: PULSE 87
[2024-09-24 09:10] VITALS: BP 112/74; TEMP 97.6
--- NOTE | 2024-09-24 10:02 | P.PN ---
Subjective Progress Note Date: 09/24/24 Reason for Consult (text): A-fib with RVR History of present illness: This is a 79-year-old male patient of Dr. Liz with past medical history of persistent atrial fibrillation on Eliquis, hypertension, dyslipidemia, CAD multivessel documented on coronary angiography, moderate mitral insufficiency. We have been asked to evaluate the patient for A-fib with RVR. Patient states that he came into the hospital because he was unable to urinate. He also states he had a little bit of dysuria. Patient denies any palpitations, no chest pain no dizziness. No syncopal episodes. He denies PND. No cough or fever no sputum production. He denies lower extremity edema. Blood pressure 122/72, heart rate in the 90s, pulse ox 99% on 2 L nasal cannula. Telemetry reviewed and patient heart rate has episodes of 30 to 60 bpm. -EKG: Obtained on 09/19: Atrial fibrillation 107 bpm with incomplete right bundle branch block. -Chest x-ray: 09/19: No acute process. -CT chest: Trace bilateral pleural effusions with development of mild right lower lobe subsegmental atelectasis. Some spiculated focal opacity within the dependent portion of the left lower lobe. Atelectasis favored over mass. -CT abdomen and pelvis: No acute process. -Laboratory studies: WBC 5.7, hemoglobin 12.8, electrolytes and renal function are normal. Initial lactic acid 2.3 and repeat was 0.9. proBNP 4070. -Home cardiac medications: Atenolol 50 mg daily, spironolactone 12.5 mg daily, Eliquis 5 mg twice daily, atorvastatin 20 mg daily, ferrous sulfate 325 mg daily. -Echocardiogram performed 03/18/2024 revealed EF 47%, moderate TR, moderate MR, RVSP 59 mmHg. -Cardiac catheterization performed 05/03/2019 revealed 50% proximal diagonal disease, 20% proximal circumflex disease, 20% mid RCA disease. -Lexiscan Cardiolite stress test performed 12/05/2022 revealed EF 73% and probably normal. 09/24 Patient seen and examined. Yesterday, we increased atenolol by adding a 25 mg evening dose. Cardiology was called during the night regarding tachycardia. Appears patient had brief episode of 130-150. No medication changes were made at that time. Patient denies feeling palpitations, fast heart rate. He denies chest pain or chest pressure. He is scheduled for discharge today. Physical examination: Gen: This is 79-year-old male in no acute distress VS: reviewed HEENT: Head is atraumatic, normocephalic. Pupils equal, round. Sclerae is anicteric. NECK: Supple. No JVD. LUNGS: Clear to auscultation. No wheezes or rhonchi. No intercostal retractions. HEART: Irregular rate and rhythm. 2/6 holosystolic murmur at the apex. ABDOMEN: Soft No tenderness. EXTREMITIES: Mild pedal edema. No calf tenderness. NEUROLOGICAL: Patient is awake, alert and oriented x3. Assessment: Permanent atrial fibrillation with episodes of RVR Urinary retention Acute urinary tract infection Hypertension Hyperlipidemia Diabetes mellitus type 2 Plan: Continue patient's home cardiac medications Increase atenolol to 50 mg twice daily. A new prescription has been sent to his pharmacy as Dr. DILLON is already completed the discharge orders Patient is cleared for discharge from cardiology perspective and may follow-up with Dr. Liz in 1 to 2 weeks. Nurse practitioner note has been reviewed, I agree with documented findings and plan of care. Patient was seen and examined. Objective - Vital Signs Vital signs: Vital Signs Temp 97.6 F 09/24/24 07:15 Pulse 87 09/24/24 08:36 Resp 24 09/24/24 08:34 BP 112/74 09/24/24 07:15 Pulse Ox 92 L 09/24/24 08:36 FiO2 Intake & Output 09/23/24 09/24/24 09/24/24 18:59 06:59 18:59 Output Total 400 300 Balance -400 -300 Output: Urine 400 300 Other: Voiding Method Toilet Urinal # Voids 4 5 1 # Bowel Movements 1 1 - Labs CBC & Chem 7: 09/23/24 10:11 09/23/24 10:11 Labs: Abnormal Lab Results - Last 24 Hours (Table) 09/23/24 09/23/24 09/23/24 Range/Units 10:11 10:11 11:50 RBC 4.01 L (4.40-5.60) 10*6/uL Hgb 12.8 L (13.0-17.0) g/dL Hct 38.0 L (39.6-50.0) % MPV 9.1 L (9.5-12.2) fL Glucose 169 H (74-99) mg/dL POC Glucose (mg/dL) 170 H (70-110) mg/dL 09/23/24 09/24/24 Range/Units 20:23 06:28 RBC (4.40-5.60) 10*6/uL Hgb (13.0-17.0) g/dL Hct (39.6-50.0) % MPV (9.5-12.2) fL Glucose (74-99) mg/dL POC Glucose (mg/dL) 166 H 140 H (70-110) mg/dL
[2024-09-24 11:42] LABS: Glucose,Whole Blood 157 mg/dL (70-110)
[2024-09-24] MEDS ORDERED: atenoloL 50 MG TAB PO SCH (21:00)
--- NOTE | 2024-09-25 18:25 | P.PN ---
Subjective Progress Note Date: 09/24/24 Principal diagnosis: Reason for follow-up is UTI Patient is a 79-year-old male with past medical history significant for atrial fibrillation diabetes mellitus reflux hypertension osteoarthritis, patient be brought to the hospital concerning for difficulty urination, burning he did have a positive UA elevated white count concerning for UTI prompting this consultation. On today's evaluation that is 09/24/2024, the patient continues to be afebrile, the patient is on 2 L nasal cannula oxygen and breathing comfortably, the Pt denies having any chest pain or cough, the patient denies having any abdominal pain no vomiting or any diarrhea, mention doing better. No new lab has been obtained today Objective - Vital Signs Vital signs: Vital Signs Temp 97.6 F 09/24/24 07:15 Pulse 87 09/24/24 08:36 Resp 24 09/24/24 08:34 BP 112/74 09/24/24 07:15 Pulse Ox 92 L 09/24/24 08:36 FiO2 Intake & Output 09/23/24 09/24/24 09/24/24 18:59 06:59 18:59 Output Total 400 300 Balance -400 -300 Output: Urine 400 300 Other: Voiding Method Toilet Urinal # Voids 4 5 1 # Bowel Movements 1 1 - Exam GENERAL DESCRIPTION: An elderly male lying in bed in no distress RESPIRATORY SYSTEM: Unlabored breathing , decreased breath sounds at bases HEART: S1 S2 regular rate and rhythm , ABDOMEN: Soft , no tenderness EXTREMITIES: No edema feet - Labs CBC & Chem 7: 09/23/24 10:11 09/23/24 10:11 Labs: Abnormal Lab Results - Last 24 Hours (Table) 09/23/24 09/24/24 09/24/24 Range/Units 20:23 06:28 11:37 POC Glucose (mg/dL) 166 H 140 H 157 H (70-110) mg/dL Assessment and Plan (1) Penicillin allergy Status: Acute Code(s): Z88.0 - ALLERGY STATUS TO PENICILLIN SNOMED Code(s): 57758397 (2) UTI (urinary tract infection) Status: Acute Code(s): N39.0 - URINARY TRACT INFECTION, SITE NOT SPECIFIED SNOMED Code(s): 08931382 Plan: 1patient presented to hospital with difficulty urination did have a some dribbling pain and blood in the urine concerning for symptomatic UTI likely from tachycardia gram-negative pathogen 2-patient with a penicillin allergy that would limit the number of antibiotic safe to use 3-patient white count has normalized blood culture have been negative urine is growing Klebsiella that is sensitive to ceftriaxone 4patient has shown clinical improvement plan is to finish therapy with with oral Ceftin prescription sent to the pharmacy yesterday Dictation was produced using [employer] dictation software. please excuse any grammatical, word or spelling errors. Time with Patient: Less than 30
--- NOTE | 2024-09-27 18:58 | CDI ---
Documentation Clarification Form Date: 09/27/2024 06:30:41 PM From: Katie Hobson Phone: Admit Date: 09/19/2024 05:26:00 PM Patient Name: Juancarlos Conrad Visit Number: [id number] Discharge Date: 09/24/2024 01:40:00 PM ATTENTION: The Clinical Documentation Specialists (CDI) and [facility] Coding Staff appreciate your assistance in clarifying documentation. Please respond to the clarification below the line at the bottom and electronically sign. The CDI & [facility] Coding staff will review the response and follow-up if needed. Please note: Queries are made part of the Legal Health Record. If you have any questions, please contact the author of this message via ITS. Doctor/Provider: Odilon Bustamante Your patient has the documented diagnosis of chroniccongestive heart failurewithimpairmentof the ejection fraction. Additional information regarding the type of CHF is requested. 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 Chest x ray: The heart size is normal. The pulmonary vasculature is normal. There iselevationof the right foramen. No suspiciouslung infiltratesevident. No suspicious lung findings. Treatment: monitored In your professional opinion, can you please clarify the type of CHF if known? [ x ] Chronic Systolic Heart Failure (reduced EF) [ ] Chronic Diastolic Heart Failure (preserved EF) [ ] Chronic Systolic & Diastolic Heart Failure [ ] Other, please specify [ ] Unable to determine (Template Last Revised: May 2020) MTDD
--- NOTE | 2024-09-27 19:26 | CDI ---
Documentation Clarification Form Date: 09/27/2024 07:15:25 PM From: Katie Hobson Phone: Admit Date: 09/19/2024 05:26:00 PM Patient Name: Juancarlos Conrad Visit Number: [id number] Discharge Date: 09/24/2024 01:40:00 PM ATTENTION: The Clinical Documentation Specialists (CDI) and [facility] Coding Staff appreciate your assistance in clarifying documentation. Please respond to the clarification below the line at the bottom and electronically sign. The CDI & [facility] Coding staff will review the response and follow-up if needed. Please note: Queries are made part of the Legal Health Record. If you have any questions, please contact the author of this message via ITS. Doctor/Provider: Odilon Bustamante The patient has Urinary sepsis and KRISSY. Based on this information and the findings below, is there an additional diagnosis that is clinically appropriate for this patient? History/Risk Factors: 79yo M,sepsisd/tcystitiswithKlebsiella pneumoniae, KRISSY,dehydration, NIDDMII wCKD II>BG,chronic A Fib,CHF,HTN,PHTN, metabolic/lactic acidosisd/t metformin, cognitiveimpairment, BTKR,hypoxiaw O2 Rx,allergyPCN Clinical Indicators: WBC: 68 21.19 6/9 16.88 Lactic acid: 2.3 Urine cultures: Klebsiella pneumoniae Blood culture: no growth Vitals signs: 09/19/2505/11/2505 14:40 15:33 17:16 T 98.7 98.2 WI 111 113 114 RR 18 20 20 BP124/82 131/83 105/90 O2 Sat 96 95 94 Treatment: patient with aPCN allergythat would limit the number of ABx safe to use. PT WBC has normalized blood culture have been negative urine is growingKlebsiellathat issensitiveto ceftriaxone. Pt has shown clinical improvement plan is to finishtherapywith oral Cetin Rx sent to the pharmacy yesterday Is there an additional diagnosis that is clinically appropriate for this patient? [ x] Severe Sepsis with organ failure [ ] No additional diagnosis/not clinically significant [ ] Other, please specify [ ] Unable to determine SIRS Criteria: 2 or more of the following may indicate SIRS Temperature < 96.8F (36C) or > 101.0F (38.3C) Heart Rate > 90 bpm Respiratory Rate > 20 breaths/min or PaCO2 < 32 mmHg White Blood Cell Count > 12,000 or < 4,000 cells/mm3 or > 10% bands (Template Last Reviewed: April 2022) MTDD
== END 2024-09-24 13:40 | disposition home or self-care (01) | DRG 872 ==
LOC: EC 14:37 → 4SSUR 17:26 → 3SCARD 09-20 01:21 → 4SSUR 09-20 13:42
PROVIDERS: ADMIT Internal Medicine; ATTEND Internal Medicine
DX: A41.89 Other specified sepsis (principal); E87.20 Acidosis, unspecified; I48.21 Permanent atrial fibrillation; I27.20 Pulmonary hypertension, unspecified; D63.1 Anemia in chronic kidney disease; I13.0 Hypertensive heart and chronic kidney disease with heart failure and stage 1 through stage 4 chronic kidney disease, or unspecified chronic kidney disease; N17.9 Acute kidney failure, unspecified; E86.0 Dehydration; E11.22 Type 2 diabetes mellitus with diabetic chronic kidney disease; E66.9 Obesity, unspecified; I50.22 Chronic systolic (congestive) heart failure; E11.65 Type 2 diabetes mellitus with hyperglycemia; R65.20 Severe sepsis without septic shock; E78.5 Hyperlipidemia, unspecified; B96.1 Klebsiella pneumoniae [K. pneumoniae] as the cause of diseases classified elsewhere; N42.89 Other specified disorders of prostate; N18.2 Chronic kidney disease, stage 2 (mild); E55.9 Vitamin D deficiency, unspecified; N40.1 Benign prostatic hyperplasia with lower urinary tract symptoms; R33.8 Other retention of urine; I95.9 Hypotension, unspecified; R41.89 Other symptoms and signs involving cognitive functions and awareness; T38.3X5A Adverse effect of insulin and oral hypoglycemic [antidiabetic] drugs, initial encounter; N30.91 Cystitis, unspecified with hematuria; R09.02 Hypoxemia; T50.995A Adverse effect of other drugs, medicaments and biological substances, initial encounter; I25.10 Atherosclerotic heart disease of native coronary artery without angina pectoris; K21.9 Gastro-esophageal reflux disease without esophagitis; Z99.81 Dependence on supplemental oxygen; Z68.31 Body mass index [BMI] 31.0-31.9, adult; Z79.01 Long term (current) use of anticoagulants; Z79.84 Long term (current) use of oral hypoglycemic drugs; Z79.899 Other long term (current) drug therapy; Z88.0 Allergy status to penicillin; Z96.653 Presence of artificial knee joint, bilateral
CPT/HCPCS: 36415; 51702; 51798; 71046; 71250; 74177; 76770; 80048; 80053; 81001; 83036; 83605; 83735; 83880; 84145; 84153; 85025; 85610; 85730; 87040; 87077; 87086; 87186; 93005; 96361; 96365; 96366; 96367; 96375; 99291

== ENCOUNTER → 2024-11-02 | Outpatient (CLI) | payer MEDICARE ==
[2024-11-02 15:54] LABS: Basophils # (A) 0.04 X 10*3/uL (0.00-0.10); Basophils % (A) 0.8 %; Eosinophils # (A) 0.16 X 10*3/uL (0.04-0.35); Eosinophils % (A) 3.2 %; HCT 42.0 % (39.6-50.0); HGB 13.0 g/dL (13.0-17.0); Immature Grans, Automated 0.40 %; Lymphocytes # (A) 1.25 X 10*3/uL (0.90-5.00); Lymphocytes % (A) 25.2 %; MCH 30.0 pg (27.0-32.0); MCHC 31.0 g/dL (32.0-37.0); MCV 96.8 FL (80.0-97.0); Monocytes # (A) 0.46 X 10*3/uL (0.20-1.00); Monocytes % (A) 9.3 %; NRBC Per 100 WBC 0 X 10*3/uL (0.00-0.01); Neutrophils # (A) 3.03 X 10*3/uL (1.80-7.70); Neutrophils % (A) 61.1 %; Platelet Count 147 X 10*3/uL (140-440); RBC 4.34 X 10*6/uL (4.40-5.60); RDW 13.7 % (11.5-14.5); WBC 4.96 X 10*3/uL (4.50-10.00)
[2024-11-02 17:09] LABS: NT-Pro-B-Type Natriuretic Pept 3060 pg/mL (0-450)
[2024-11-02 17:34] LABS: ALT 13 U/L (10-49); AST 18 U/L (14-35); Albumin 3.8 g/dL (3.8-4.9); Albumin/Globulin Ratio 1.81 Ratio (1.60-3.17); Alkaline Phosphatase 89 U/L (41-126); Anion Gap 11.20 mmol/L (4.00-12.00); BUN/Creat Ratio 10.45 Ratio (12.00-20.00); Blood Urea Nitrogen 11.5 mg/dL (9.0-27.0); Calcium 8.9 mg/dL (8.7-10.3); Carbon Dioxide 26.8 mmol/L (21.6-31.8); Chloride 103 mmol/L (96-109); Cholesterol 81.00 mg/dL (0.00-200.00); Ferritin 58.8 ng/mL (22.0-322.0); Globulin 2.1 g/dL (1.6-3.3); Glucose 126 mg/dL (70-110); HDL Cholesterol 32.50 mg/dL (40.00-60.00); Iron 224 UG/DL (65-175); LDL Cholesterol,Calculated 30.1 mg/dL (0.0-131.0); Magnesium 1.5 mg/dL (1.5-2.4); Potassium 4.3 mmol/L (3.5-5.5); Sodium 141 mmol/L (135-145); Total Iron Binding Capacity 378 UG/DL (228-460); Total Protein 5.9 g/dL (6.2-8.2); Triglycerides 92.00 mg/dL (0.00-149.00); Uric Acid 5.4 mg/dL (3.7-8.7); VLDL Calculation 18.40 mg/dL (5.00-40.00)
== END | disposition home or self-care (01) ==
LOC: LABWHC1 09:05
PROVIDERS: ATTEND Internal Medicine
DX: I12.9 Hypertensive chronic kidney disease with stage 1 through stage 4 chronic kidney disease, or unspecified chronic kidney disease (principal); N18.30 Chronic kidney disease, stage 3 unspecified; D63.1 Anemia in chronic kidney disease; I48.91 Unspecified atrial fibrillation; I50.32 Chronic diastolic (congestive) heart failure; E87.8 Other disorders of electrolyte and fluid balance, not elsewhere classified; E78.2 Mixed hyperlipidemia; E78.5 Hyperlipidemia, unspecified; E55.9 Vitamin D deficiency, unspecified; E11.65 Type 2 diabetes mellitus with hyperglycemia; E03.9 Hypothyroidism, unspecified; M81.0 Age-related osteoporosis without current pathological fracture
CPT/HCPCS: 36415; 80053; 80061; 82306; 82728; 83036; 83540; 83550; 83735; 83880; 84100; 84443; 84550; 85025; 85652; 86140